=== PATIENT | male | born 1950 | race Two or more races ===

== ENCOUNTER 2018-07-25 10:15 | Inpatient (IN) | payer SELFPAY ==
[2018-07-25] VITALS (22 sets, daily range): BP systolic 95–151; BP diastolic 36–78
[~2018-07-25] VITALS: Ht 172.7 cm; Wt 94.9 kg
[2018-07-25] MEDS ORDERED: POTASSIUM CHLO10 MEQ ORAL (10:25)
[2018-07-25] MEDS ORDERED: FUROSEMIDE40 MG ORAL (10:25)
[2018-07-25] MEDS ORDERED: SPIRONOLACTONE100 MG ORAL (10:25)
[2018-07-25] MEDS ORDERED: Pantoprazole Inj IVP ONE (10:30)
[2018-07-25] MEDS ORDERED: Pantoprazole 80 MG in NS 250 ML IV ONE (10:30)
[2018-07-25] MEDS ORDERED: Octreotide Acetate 500 MCG in Sodium Chloride 499 ML IV SCH (10:30)
[2018-07-25] MEDS ORDERED: SandoSTATIN 50mcg Inj IVP ONE (10:30)
--- NOTE | 2018-07-25 10:31 | NUR ---
ED Nurse Note: Pt came in from home with family due to vomiting blood tinge emesis x 5 started this morning. Pt appears to be pale, weak. Pt responds verbally spontaneously, cooperate with staffs. Son stated pt has been drinking alcohol everyday recently. Pt does not complain of any pain at this time. Vital signs stable at this time. 3 Large bore IVs started on peripheral area. Will cont to monitor.
[2018-07-25 10:43] LABS: APPEARANCE,URINE CLEAR; BILIRUBIN, URINE NEGATIVE (NEGATIVE); GLUCOSE, URINE (UA) NEGATIVE (NEGATIVE); KETONES,URINE NEGATIVE (NEGATIVE); LEUKOCYTE ESTERASE ,URINE 1+ (NEGATIVE); NITRITE,URINE NEGATIVE (NEGATIVE); PH,URINE 5 (4.5-8.0); PROTEIN,URINE 1+ (NEGATIVE); UROBILINOGEN,URINE NORMAL MG/DL (0.0-1.0)
[2018-07-25 10:45] LABS: COLOR,URINE YELLOW
[2018-07-25 10:48] LABS: INR 1.7 (0.9-1.1)
[2018-07-25 10:51] LABS: ANION GAP 20 mmol/L (5-15); BLOOD UREA NITROGEN 18 mg/dL (7-18); CALCIUM 7.9 MG/DL (8.5-10.1); CARBON DIOXIDE 13 MMOL/L (21-32); CHLORIDE 102 MMOL/L (98-107); CREATININE 0.9 MG/DL (0.55-1.30); POTASSIUM 3.6 MMOL/L (3.5-5.1); SODIUM 135 MMOL/L (136-145)
--- NOTE | 2018-07-25 10:51 | Emergency Room Report ---
History of Present Illness General Chief Complaint: Gastrointestinal Bleed Source: Family Member Present Illness HPI Patient is a 68-year-old male brought in by EMS after increased GI bleeding and altered mental status. Patient was noted to have history of cirrhosis and was noted to be drinking alcohol regularly. He was noted to have increased hematemesis with large amount of bloody emesis. Patient had been taking diuretics as well as potassium due to cirrhosis. He had noticed increased abdominal distention. History is obtained from patient's family members. Allergies: Coded Allergies: No Known Allergies (Unverified , 07/25/18) Patient History Past Medical History: see triage record Reviewed Nursing Documentation: PMH: Agreed; PSxH: Agreed Nursing Documentation-PMH Past Medical History: No History, Except For Review of Systems All Other Systems: negative except mentioned in HPI Physical Exam Vital Signs Date Time Temp Pulse Resp B/P (MAP) Pulse Ox O2 Delivery O2 Flow Rate FiO2 07/25/18 10:21 97.5 89 20 96 Room Air 07/25/18 10:42 114/36 General Appearance: lethargic, Chronically Ill Eyes: bilateral eye conjunctivae pale ENT: other - rhinophyma Neck: limited range of motion Respiratory: lungs clear, no respiratory distress Cardiovascular #1: normal inspection Gastrointestinal: soft, distended - ascites Musculoskeletal: normal inspection Neurologic: alert, motor weakness Skin: pallor Procedures Critical Care Time Critical Care Time Patient had a critical medical condition which untreated could potentially result in life or limb threatening injury. Total critical care time excluding procedures approximately 45 minutes. Medical Decision Making Diagnostic Impression: Primary Impression: Gastrointestinal hemorrhage Additional Impressions: Severe anemia Cirrhosis ER Course Presented for abdominal pain and hematemesis. Differential diagnosis include was not limited to esophageal varices, ulcer, gastritis among others. Because of complexity of patient's case laboratory testing and imaging studies were ordered. Patient was noted to have market pallor and was initially normotensive. Patient was started on IV fluids. Patient was noted to have markedly low hemoglobin which initially showed approximately 2 repeat was 1.8. Patient was noted to be coagulopathic. Patient was started on IV uncrossed match blood. Patient was transfused multiple units of blood after informed consent was obtained. Patient was noted to be normotensive despite a severely low hemoglobin.He was started on Protonix drip as well as Sandostatin drip. Dr. Dontae Macias was contacted for inpatient management. Dr. Barclay was contacted for GI consult due to hematemesis. Labs Test 07/25/18 10:25 07/25/18 11:40 Prothrombin Time 17.4 SEC (9.30-11.50) Prothromb Time International Ratio 1.7 (0.9-1.1) Activated Partial Thromboplast Time 26 SEC (23-33) Urine Color Yellow Urine Appearance Clear Urine pH 5 (4.5-8.0) Urine Specific [place] 1.020 (1.005-1.035) Urine Protein 1+ (NEGATIVE) Urine Glucose (UA) Negative (NEGATIVE) Urine Ketones Negative (NEGATIVE) Urine Blood Negative (NEGATIVE) Urine Nitrite Negative (NEGATIVE) Urine Bilirubin Negative (NEGATIVE) Urine Urobilinogen Normal MG/DL (0.0-1.0) Urine Leukocyte Esterase 1+ (NEGATIVE) Urine RBC 0 /HPF (0 - 0) Urine WBC 0-2 /HPF (0 - 0) Urine Squamous Epithelial Cells Moderate /LPF (NONE/OCC) Urine Bacteria Moderate /HPF (NONE) Sodium Level 135 MMOL/L (136-145) Potassium Level 3.6 MMOL/L (3.5-5.1) Chloride Level 102 MMOL/L (98-107) Carbon Dioxide Level 13 MMOL/L (21-32) Anion Gap 20 mmol/L (5-15) Blood Urea Nitrogen 18 mg/dL (7-18) Creatinine 0.9 MG/DL (0.55-1.30) Estimat Glomerular Filtration Rate > 60 mL/min (>60) Glucose Level 139 MG/DL (74-106) Calcium Level 7.9 MG/DL (8.5-10.1) Total Bilirubin 0.9 MG/DL (0.2-1.0) Aspartate Amino Transf (AST/SGOT) 89 U/L (15-37) Alanine Aminotransferase (ALT/SGPT) 65 U/L (12-78) Alkaline Phosphatase 113 U/L (46-116) Troponin I 0.042 ng/mL (0.000-0.056) Total Protein 6.3 G/DL (6.4-8.2) Albumin 2.4 G/DL (3.4-5.0) Globulin 3.9 g/dL Albumin/Globulin Ratio 0.6 (1.0-2.7) Lipase 203 U/L (73-393) White Blood Count 7.5 K/UL (4.8-10.8) Red Blood Count 1.19 M/UL (4.70-6.10) Hemoglobin 1.8 G/DL (14.2-18.0) Hematocrit 7.4 % (42.0-52.0) Mean Corpuscular Volume 62 FL (80-99) Mean Corpuscular Hemoglobin 15.3 PG (27.0-31.0) Mean Corpuscular Hemoglobin Concent 24.8 G/DL (32.0-36.0) Red Cell Distribution Width 19.8 % (11.6-14.8) Platelet Count 120 K/UL (150-450) Mean Platelet Volume 7.6 FL (6.5-10.1) Neutrophils (%) (Auto) % (45.0-75.0) Lymphocytes (%) (Auto) % (20.0-45.0) Monocytes (%) (Auto) % (1.0-10.0) Eosinophils (%) (Auto) % (0.0-3.0) Basophils (%) (Auto) % (0.0-2.0) Last Vital Signs Date Time Temp Pulse Resp B/P (MAP) Pulse Ox O2 Delivery O2 Flow Rate FiO2 07/25/18 10:42 87 23 114/36 99 Room Air 07/25/18 10:21 97.5 Status: unchanged Disposition: ADMITTED INPATIENT Condition: Critical Bob Bella MD July 25, 2018 10:51
[2018-07-25 10:55] LABS: ALANINE AMINOTRANSFERASE 65 U/L (12-78); ALBUMIN 2.4 G/DL (3.4-5.0); ALBUMIN/GLOBULIN RATIO 0.6 (1.0-2.7); ALKALINE PHOSPHATASE 113 U/L (46-116); ASPARTATE AMINO TRANSFERASE 89 U/L (15-37); BILIRUBIN,TOTAL 0.9 MG/DL (0.2-1.0)
--- NOTE | 2018-07-25 11:01 | NUR ---
ED Nurse Note: Second Lavender tube sent to lab.
--- NOTE | 2018-07-25 11:02 | NUR ---
ED Nurse Note: Pt had a vomiting episode at this time, blood tinged emesis noted.
--- NOTE | 2018-07-25 11:24 | NUR ---
ED Nurse Note: Blood transfusion consent signed by pt and physician, witnessed by RN. Awaiting for blood bank to call back about blood.
--- NOTE | 2018-07-25 11:50 | NUR ---
ED Nurse Note: Blood transfusion started at this time on L forearm IV 18G, witnessed by Antonia Sebastian RN and Zac Villegas RN. Physician signed Transfusion form. Vital signs at this time: Oral temp 97.7 BP 95/42 HR 79 RR 18. Blood is being ran bolus per ERMD order.
--- NOTE | 2018-07-25 12:05 | NUR ---
ED Nurse Note: 15 mins after blood transfusion started, pr does not complain of adverse reactions. Vital signs at this time: Oral temp 97.2F HR 80 BP 99/45 RR 17 SAT 100% RA. Will cont to monitor.
[2018-07-25 12:11] LABS: HEMATOCRIT 7.4 % (42.0-52.0); MEAN CORPUSCULAR VOLUME 62 FL (80-99); PLATELET COUNT 120 K/UL (150-450); RED BLOOD COUNT 1.19 M/UL (4.70-6.10); RED CELL DISTRIBUTION WIDTH 19.8 % (11.6-14.8)
[2018-07-25 12:16] LABS: HEMOGLOBIN 1.8 G/DL (14.2-18.0); WHITE BLOOD COUNT 7.5 K/UL (4.8-10.8)
--- NOTE | 2018-07-25 12:16 | NUR ---
ED Nurse Note: Pt vomited x1 with blood tinged emesis rosina, ERMD aware.
--- NOTE | 2018-07-25 12:30 | NUR ---
ED Nurse Note: First bag of RBC completed at this time. Vital signs at this time: Oral temp 97.2F HR 83 BP 112/51 RR 18 SAT 100% RA. No adverse effect noted. Next bag of RBC endorsed to charge nurse Gretta.
[2018-07-25] MEDS ORDERED: Miralax 17gm pkt ORAL PRN (12:45)
[2018-07-25] MEDS ORDERED: Nitroglycerin Subl 0.4mg tab SL PRN (12:45)
[2018-07-25] MEDS ORDERED: Mylanta II UD 30ml ORAL PRN (12:45)
--- NOTE | 2018-07-25 13:17 | NUR ---
ED Nurse Note: Second bag of RBC was given to pt by Gretta charge nurse. 15 mins after infusion start, Oral temp 97.2F HR 88 BP 114/56. No adverse reactions noted.
--- NOTE | 2018-07-25 13:25 | NUR ---
ED Nurse Note: Second bag of RBC completed at this time. No adverse reaction noted. Oral temp 97.3F HR 91 BP 124/52.
--- NOTE | 2018-07-25 13:45 | NUR ---
ED Nurse Note: Third bag of RBC crossed match blood (A+) started at this time. Vital signs: Oral temp 97.0F HR 92 BP 123/62. Addendum: 07/26/18 at 0737 by [facility] ED Nurse Note: Third bag of RBC (2nd crossed match blood (A+) bag) started at this time. Vital signs: Oral temp 97.0F HR 92 BP 123/62.
--- NOTE | 2018-07-25 14:00 | NUR ---
ED Nurse Note: Third bag of RBC completed at this time. Vital signs Oral temp 97.0F HR 79 BP 129/59. No adverse reactions noted.
[2018-07-25] MEDS: D5NS 1,000 ML IV SCH (14:04)
--- NOTE | 2018-07-25 14:30 | NUR ---
ED Nurse Note: Forth bag of RBC started at this time. Vital signs Oral temp 97.4F HR 80 BP 131/58. Pt is awake and alert at this time, answers all questions appropriately.
[2018-07-25] MEDS ORDERED: Phytonadione 10 MG in D5W 55 ML IVPB SCH (15:00)
--- NOTE | 2018-07-25 15:30 | NUR ---
ED Nurse Note: Forth bag of RBC completed at this time. No adverse reactions noted. Vital signs at this time: Oral temp 97.3F HR 85 BP 124/65.
--- NOTE | 2018-07-25 16:15 | NUR ---
ED Nurse Note: First bag of Fresh frozen plasma started at this time. Vital signs Oral temp 97.8F HR 79 BP 136/66.
--- NOTE | 2018-07-25 16:45 | NUR ---
ED Nurse Note: First bag of FFP completed at this time. Vital signs Oral temp 97.5F HR 72 BP 129/58. No signs of acutr distress. Pt had a bowel movement, soft stools noted. No blood in stool.
--- NOTE | 2018-07-25 16:47 | NUR ---
ED Nurse Note: Attempted to give report to ICU but room is not ready, RN is not ready to take report. Will try again.
--- NOTE | 2018-07-25 17:00 | NUR ---
ED Nurse Note: Informed Blood bank about 2nd FFP bag. Lab will call when bag is ready.
--- NOTE | 2018-07-25 17:40 | NUR ---
ED Nurse Note: Reprot given to Marcial RN at ext [phone]. Pt to be transfered to room [facility] with portable oxygen, emergency box, and belongings.
--- NOTE | 2018-07-25 17:40 | NUR ---
ED Nurse Note: Endorsed the second bag of fresh frozen plasma to DERECK Ceja in ICU.
--- NOTE | 2018-07-25 18:00 | NUR ---
NURSE NOTES: Patient arrived to room 246-D. he is awake and talkative, he denies any pain, no symptoms of vomiting noted,
--- NOTE | 2018-07-25 19:32 | NUR ---
HAND-OFF: Report given to DERECK osuna.
--- NOTE | 2018-07-25 19:33 | NUR ---
NURSE NOTES: Endorsement received from DERECK Ceja. Patient awake, alert. Able to communicate needs, follows commands. [place] speaking. On room air. No shortness of breath. With right antecubital IV g 18, right forearm g 20, left forearm g18 and left hand g 20. Ongoing IV fluid D5NS 100 ml/hr, Sandostatin drip 50ml./hr and Protonix drip at 25 ml/hr. Skin is intact. Noted with trace edema at bilateral feet a legs. Kept elevated. Bed locked and in low position. Bed alarm on. Call light within reach.
--- NOTE | 2018-07-25 20:00 | NUR ---
NURSE NOTES: Patient passed 1 large BM, soft and dark brown in color. Sample collected and sent to the lab for stool OB.
--- NOTE | 2018-07-25 20:30 | NUR ---
NURSE NOTES: Patient came in with his own medications. Home meds and other personal belongings given to son to be taken home. Inventory list signed.
--- NOTE | 2018-07-25 20:50 | NUR ---
NURSE NOTES: Confirmed with Dr Brothers regarding Protonix and Sandostatin drip as the current bags were from ER. As per him to continue Protonix and Sandostatin drip and CBC, PT INR after the 2nd unit of FFP was transfused.
--- NOTE | 2018-07-25 20:56 | NUR ---
NURSE NOTES: Charge nurse confirmed with RN for the 2nd unit of FFP. Patient's identification verified with ID band. 2nd unit of FFP started.
--- NOTE | 2018-07-25 21:15 | NUR ---
NURSE NOTES: No transfusion reaction noted 15 minutes after starting the transfusion. increased to 200ml/hr to transfuse in 1 &1/2 hours
--- NOTE | 2018-07-25 22:00 | NUR ---
NURSE NOTES: Patient reported he has the urge to pass stool again. Assisted with bedpan. No stool noted, but patient passed urine. As per patient's son, patient has periods of incontinence. When patient feels that he needs to pass urine but sometimes unable to hold it. Condom catheter applied. Explained to the patient and his son.
[2018-07-25] MEDS: Pantoprazole 80 MG in NS 250 ML IV SCH (22:22)
[2018-07-25] MEDS: Octreotide Acetate 500 MCG in Sodium Chloride 499 ML IV SCH (22:29)
--- NOTE | 2018-07-25 22:30 | NUR ---
NURSE NOTES: 2nd unit of FFP transfused. No transfusion reaction noted. Will continue to monitor.
[2018-07-26] VITALS (26 sets, daily range): BP systolic 91–182; BP diastolic 43–83
--- NOTE | 2018-07-26 | NUR ---
NURSE NOTES: Patient asleep at this time. No shortness of breath. No fever, no complains of pain. Bed locked and in low position. Bed alarm on. emergency medical technician basic at bedside drawing blood.
[2018-07-26 00:14] LABS: HEMATOCRIT 19.1 % (42.0-52.0); MEAN CORPUSCULAR VOLUME 76 FL (80-99); PLATELET COUNT 85 K/UL (150-450); RED BLOOD COUNT 2.51 M/UL (4.70-6.10); RED CELL DISTRIBUTION WIDTH 22.3 % (11.6-14.8); WHITE BLOOD COUNT 6.3 K/UL (4.8-10.8)
[2018-07-26] MEDS: D5NS 1,000 ML IV SCH ×2 (00:15→09:06)
[2018-07-26 00:16] LABS: HEMOGLOBIN 6.2 G/DL (14.2-18.0)
--- NOTE | 2018-07-26 00:20 | NUR ---
NURSE NOTES: Hgb 6.2, Hct 1.4., INR 1.4. No episode of vomiting. Patient asleep, arousable per name. Called Dr. Hammonds and left a message. Awaiting for return call.
[2018-07-26 00:24] LABS: INR 1.4 (0.9-1.1)
--- NOTE | 2018-07-26 01:00 | NUR ---
NURSE NOTES: Hgb 6.2, Hct 1.4., INR 1.4. Called Dr. Hammonds for the second time on his emergency exchange and left a message. Awaiting for return call.
--- NOTE | 2018-07-26 01:38 | NUR ---
NURSE NOTES: Still no return call from Dr. Narayanan. RN supervisory investigative specialist informed. As per her to call Dr. Barclay. Called Dr. Barclay on his emergency number. Left a message, awaiting for return call.
[2018-07-26] MEDS: Morphine Sulfate 2mg/ml Inj(IV/IM USE ONLY) IVP PRN (02:38)
--- NOTE | 2018-07-26 02:40 | NUR ---
NURSE NOTES: Patient reported 7/10 abdominal pain. PRN morphine given. Rechecked temp, 100.3F. Patient has 5 thick blankets, blankets removed. Will reassess.
--- NOTE | 2018-07-26 03:15 | NUR ---
NURSE NOTES: Temperature rechecked: 99.9F.
--- NOTE | 2018-07-26 04:15 | NUR ---
NURSE NOTES: Temperature 98.3F Orally. Patient nauseous, no vomiting noted. Patient coughed out blood tinged phlegm. PRN Zofran given.
--- NOTE | 2018-07-26 04:30 | NUR ---
NURSE NOTES: Still awaiting for return call from both Drs. Brothers and Ning. technicians and trades workers already fannie blood samples for morning labs. RN fabrication and assembly supervisor made aware.
[2018-07-26 05:05] LABS: HEMATOCRIT 17.4 % (42.0-52.0); MEAN CORPUSCULAR VOLUME 77 FL (80-99); PLATELET COUNT 88 K/UL (150-450); RED BLOOD COUNT 2.28 M/UL (4.70-6.10); RED CELL DISTRIBUTION WIDTH 22.8 % (11.6-14.8); WHITE BLOOD COUNT 7.1 K/UL (4.8-10.8)
[2018-07-26 05:15] LABS: HEMOGLOBIN 5.6 G/DL (14.2-18.0); INR 1.5 (0.9-1.1)
--- NOTE | 2018-07-26 05:19 | NUR ---
NURSE NOTES: Received call from the lab. Hgb 5.6. Patient had no episode of hematemesis, no hematochezia, no melena. Had a blood tinged sputum x1 during the night. Patient asleep, arousable by name. No complains of pain at this time. Maintaining SBP>90mmHg, MAP 65 and above during the shift. Called Dr Hammonds and updated of latest Hgb. Awaiting for return call.
[2018-07-26 05:37] LABS: ALANINE AMINOTRANSFERASE 133 U/L (12-78); ALBUMIN 2.3 G/DL (3.4-5.0); ALBUMIN/GLOBULIN RATIO 0.7 (1.0-2.7); ALKALINE PHOSPHATASE 90 U/L (46-116); AMYLASE 36 U/L (25-115); ANION GAP 9 mmol/L (5-15); ASPARTATE AMINO TRANSFERASE 173 U/L (15-37); BILIRUBIN,DIRECT 0.6 MG/DL (0.0-0.3); BLOOD UREA NITROGEN 20 mg/dL (7-18); CALCIUM 7.8 MG/DL (8.5-10.1); CARBON DIOXIDE 22 MMOL/L (21-32); CHLORIDE 108 MMOL/L (98-107); CREATININE 0.7 MG/DL (0.55-1.30); POTASSIUM 3.3 MMOL/L (3.5-5.1); SODIUM 139 MMOL/L (136-145)
--- NOTE | 2018-07-26 06:30 | NUR ---
NURSE NOTES: Called Dr. Brothers again for the H&H result. awaiting for return call.
--- NOTE | 2018-07-26 06:45 | NUR ---
NURSE NOTES: Called Dr. Brothers at his home phone number. No answer and no option to leave a message. Called Dr. Raya as the next chain of command. Left a message at his emergency line. Awaiting for return call.
--- NOTE | 2018-07-26 07:15 | NUR ---
NURSE NOTES: Dr. Raya returned the call. Updated him of the patient's current status, patient on Protonix and Sandostatin drip. No pressors. Alert and oriented x4. No vomiting of blood this shift. Informed him that Jackson Hammonds and Ning were called multiple times on their emergency lines but didn't receive and return call. As per him to call Dr. Macias.
--- NOTE | 2018-07-26 07:18 | NUR ---
HAND-OFF: Report given to DERECK Ceja.
--- NOTE | 2018-07-26 07:21 | NUR ---
NURSE NOTES: Received telephone order from Dr Brothers to transfuse 2 units PRBC. Noted and carried out
--- NOTE | 2018-07-26 08:15 | NUR ---
NURSE NOTES: Dr. Barclay called to begin preparations for a possible EGD today. patient is awake and able to sign for consent.
--- NOTE | 2018-07-26 08:45 | NUR ---
NURSE NOTES: Buster at the bedside and explained patient and son risk and benefits of procedure, patient agreed and signed consent.
--- NOTE | 2018-07-26 08:59 | GI Initial Consult Note ---
History of Present Illness General Date patient seen: July 26, 2018 Time patient seen: 08:53 Reason for Hospitalization: Gastrointestinal Bleed Referring physician: JAYA SANTA Reason for Consultation: GI bleed Present Illness HPI Patient is a 68-year-old male brought in by EMS after increased GI bleeding and altered mental status. Patient was noted to have history of cirrhosis and was noted to be drinking alcohol regularly. He was noted to have increased hematemesis with large amount of bloody emesis. Patient had been taking diuretics as well as potassium due to cirrhosis. He had noticed increased abdominal distention. History is obtained from patient's family members. GI consult. Patient seen, awake alert no apparent distress with no active signs or symptoms of nausea vomiting. Family at bedside, reported that the patient's felt dizzy last night followed by multiple episodes of. Patient presented to the emergency room his hemoglobin at 1.8, received 5 units of blood which is now at 5.8. Family reported the patient will extensive history of alcohol use since the age of 14. Abdomen was assessed, distended and firm with bilateral lower extremity edema. Labs reviewed noted severe anemia, transaminitis, hypoalbuminemia and hypercoagulopathy. Unknown history of endoscopic colonoscopy. Home Meds Reported Medications Furosemide* (LASIX*) 40 Mg Tablet, 40 MG ORAL DAILY, TAB 07/25/18 Spironolactone* (SPIRONOLACTONE*) 100 Mg Tablet, 50 MG ORAL DAILY, TAB 07/25/18 Potassium Chloride* (K-DUR*) 10 Meq Capsule.er, 10 MEQ ORAL DAILY, #7 TAB 0 Refills 07/25/18 Med list reviewed/reconciled: Yes Allergies: Coded Allergies: No Known Allergies (Unverified , 07/25/18) Patient History Limited by: medical condition History Provided By: Patient, Family Member, Medical Record H Narrative Alcohol abuse Social History: Reports: alcohol use Review of Systems All Other Systems: negative except mentioned in HPI Physical Exam Vital Signs Date Time Temp Pulse Resp B/P (MAP) Pulse Ox O2 Delivery O2 Flow Rate FiO2 07/25/18 10:21 97.5 89 20 96 Room Air 07/25/18 10:42 114/36 Sp02 EP Interpretation: reviewed, normal Labs Laboratory Tests Test 07/25/18 10:25 07/25/18 11:40 07/25/18 20:00 07/26/18 00:00 Prothrombin Time 17.4 SEC (9.30-11.50) H 15.0 SEC (9.30-11.50) H Prothromb Time International Ratio 1.7 (0.9-1.1) H 1.4 (0.9-1.1) H Activated Partial Thromboplast Time 26 SEC (23-33) Urine Color Yellow Urine Appearance Clear Urine pH 5 (4.5-8.0) Urine Specific [place] 1.020 (1.005-1.035) Urine Protein 1+ (NEGATIVE) H Urine Glucose (UA) Negative (NEGATIVE) Urine Ketones Negative (NEGATIVE) Urine Blood Negative (NEGATIVE) Urine Nitrite Negative (NEGATIVE) Urine Bilirubin Negative (NEGATIVE) Urine Urobilinogen Normal MG/DL (0.0-1.0) Urine Leukocyte Esterase 1+ (NEGATIVE) H Urine RBC 0 /HPF (0 - 0) Urine WBC 0-2 /HPF (0 - 0) Urine Squamous Epithelial Cells Moderate /LPF (NONE/OCC) H Urine Bacteria Moderate /HPF (NONE) H Sodium Level 135 MMOL/L (136-145) L Potassium Level 3.6 MMOL/L (3.5-5.1) Chloride Level 102 MMOL/L (98-107) Carbon Dioxide Level 13 MMOL/L (21-32) L Anion Gap 20 mmol/L (5-15) H Blood Urea Nitrogen 18 mg/dL (7-18) Creatinine 0.9 MG/DL (0.55-1.30) Estimat Glomerular Filtration Rate > 60 mL/min (>60) Glucose Level 139 MG/DL (74-106) H Calcium Level 7.9 MG/DL (8.5-10.1) L Total Bilirubin 0.9 MG/DL (0.2-1.0) Aspartate Amino Transf (AST/SGOT) 89 U/L (15-37) H Alanine Aminotransferase (ALT/SGPT) 65 U/L (12-78) Alkaline Phosphatase 113 U/L (46-116) Troponin I 0.042 ng/mL (0.000-0.056) Total Protein 6.3 G/DL (6.4-8.2) L Albumin 2.4 G/DL (3.4-5.0) L Globulin 3.9 g/dL Albumin/Globulin Ratio 0.6 (1.0-2.7) L Lipase 203 U/L (73-393) White Blood Count 7.5 K/UL (4.8-10.8) 6.3 K/UL (4.8-10.8) Red Blood Count 1.19 M/UL (4.70-6.10) L 2.51 M/UL (4.70-6.10) L Hemoglobin 1.8 G/DL (14.2-18.0) *L 6.2 G/DL (14.2-18.0) Hematocrit 7.4 % (42.0-52.0) L 19.1 % (42.0-52.0) #L Mean Corpuscular Volume 62 FL (80-99) L 76 FL (80-99) #L Mean Corpuscular Hemoglobin 15.3 PG (27.0-31.0) L 24.9 PG (27.0-31.0) L Mean Corpuscular Hemoglobin Concent 24.8 G/DL (32.0-36.0) L 32.6 G/DL (32.0-36.0) Red Cell Distribution Width 19.8 % (11.6-14.8) H 22.3 % (11.6-14.8) H Platelet Count 120 K/UL (150-450) L 85 K/UL (150-450) L Mean Platelet Volume 7.6 FL (6.5-10.1) 6.3 FL (6.5-10.1) L Neutrophils (%) (Auto) % (45.0-75.0) % (45.0-75.0) Lymphocytes (%) (Auto) % (20.0-45.0) % (20.0-45.0) Monocytes (%) (Auto) % (1.0-10.0) % (1.0-10.0) Eosinophils (%) (Auto) % (0.0-3.0) % (0.0-3.0) Basophils (%) (Auto) % (0.0-2.0) % (0.0-2.0) Differential Total Cells Counted 100 100 Neutrophils % (Manual) 90 % (45-75) H 94 % (45-75) H Lymphocytes % (Manual) 4 % (20-45) L 2 % (20-45) L Monocytes % (Manual) 6 % (1-10) 2 % (1-10) Eosinophils % (Manual) 0 % (0-3) 0 % (0-3) Basophils % (Manual) 0 % (0-2) 1 % (0-2) Band Neutrophils 0 % (0-8) 1 % (0-8) Platelet Estimate Decreased L Decreased L Platelet Morphology Normal Normal Hypochromasia 4+ 2+ Microcytosis 4+ Stool Occult Blood Pending Anisocytosis 1+ Target Cells 1+ Test 07/26/18 04:25 White Blood Count 7.1 K/UL (4.8-10.8) Red Blood Count 2.28 M/UL (4.70-6.10) L Hemoglobin 5.6 G/DL (14.2-18.0) *L Hematocrit 17.4 % (42.0-52.0) L Mean Corpuscular Volume 77 FL (80-99) L Mean Corpuscular Hemoglobin 24.6 PG (27.0-31.0) L Mean Corpuscular Hemoglobin Concent 32.2 G/DL (32.0-36.0) Red Cell Distribution Width 22.8 % (11.6-14.8) H Platelet Count 88 K/UL (150-450) L Mean Platelet Volume 7.1 FL (6.5-10.1) Neutrophils (%) (Auto) % (45.0-75.0) Lymphocytes (%) (Auto) % (20.0-45.0) Monocytes (%) (Auto) % (1.0-10.0) Eosinophils (%) (Auto) % (0.0-3.0) Basophils (%) (Auto) % (0.0-2.0) Differential Total Cells Counted 100 Neutrophils % (Manual) 90 % (45-75) H Lymphocytes % (Manual) 6 % (20-45) L Monocytes % (Manual) 4 % (1-10) Eosinophils % (Manual) 0 % (0-3) Basophils % (Manual) 0 % (0-2) Band Neutrophils 0 % (0-8) Platelet Estimate Decreased L Platelet Morphology Normal Polychromasia 1+ Hypochromasia 3+ Anisocytosis 3+ Microcytosis 2+ Prothrombin Time 15.2 SEC (9.30-11.50) H Prothromb Time International Ratio 1.5 (0.9-1.1) H Activated Partial Thromboplast Time 31 SEC (23-33) Sodium Level 139 MMOL/L (136-145) Potassium Level 3.3 MMOL/L (3.5-5.1) L Chloride Level 108 MMOL/L (98-107) H Carbon Dioxide Level 22 MMOL/L (21-32) Anion Gap 9 mmol/L (5-15) Blood Urea Nitrogen 20 mg/dL (7-18) H Creatinine 0.7 MG/DL (0.55-1.30) Estimat Glomerular Filtration Rate > 60 mL/min (>60) Glucose Level 187 MG/DL (74-106) H Calcium Level 7.8 MG/DL (8.5-10.1) L Total Bilirubin 3.0 MG/DL (0.2-1.0) H Direct Bilirubin 0.6 MG/DL (0.0-0.3) H Aspartate Amino Transf (AST/SGOT) 173 U/L (15-37) H Alanine Aminotransferase (ALT/SGPT) 133 U/L (12-78) H Alkaline Phosphatase 90 U/L (46-116) Total Protein 5.8 G/DL (6.4-8.2) L Albumin 2.3 G/DL (3.4-5.0) L Globulin 3.5 g/dL Albumin/Globulin Ratio 0.7 (1.0-2.7) L Amylase Level 36 U/L (25-115) Lipase 131 U/L (73-393) General Appearance: well appearing, no apparent distress, alert Head: normocephalic EENT: PERRL/EOMI, normal ENT inspection Neck: supple Respiratory: normal breath sounds, no respiratory distress Cardiovascular: normal rate Gastrointestinal: normal inspection, non tender, soft, normal bowel sounds, non -distended, distended, ascites Rectal: deferred Genitourinary: deferred Musculoskeletal: normal inspection, back normal Neurologic: normal inspection, alert, oriented x3, responsive Psychiatric: normal inspection, judgement/insight normal, memory normal Skin: normal inspection, normal color, no rash, warm/dry, palpation normal, well hydrated Lymphatic: normal inspection, no adenopathy Current Medications Current Medications Medications (Trade) Dose Ordered Sig/Florentin Route PRN Reason Start Time Stop Time Status Last Admin Dose Admin Acetaminophen (Tylenol) 650 mg Q4H PRN ORAL fever 07/25/18 12:45 08/24/18 12:44 Al Hydroxide/Mg Hydroxide (Mylanta II) 30 ml Q6H PRN ORAL dyspepsia 07/25/18 12:45 08/24/18 12:44 Dextrose (Dextrose 50%) 25 ml Q30M PRN IV Hypoglycemia 07/25/18 12:45 08/24/18 12:44 Dextrose (Dextrose 50%) 50 ml Q30M PRN IV Hypoglycemia 07/25/18 12:45 08/24/18 12:44 Dextrose/Sodium Chloride 1,000 ml @ 100 mls/hr Q10H IV 07/25/18 14:00 08/24/18 13:59 07/26/18 00:15 Diphenhydramine HCl (Benadryl) 25 mg Q6H PRN ORAL Itching/Pruritis 07/25/18 12:45 08/24/18 12:44 Morphine Sulfate (Morphine Sulfate) 2 mg Q4H PRN IVP severe Pain (Pain Scale 7-10) 07/25/18 12:45 08/01/18 12:44 07/26/18 02:38 Nitroglycerin (Ntg) 0.4 mg Q5M X 3 DOSES PRN SL Prn Chest Pain 07/25/18 12:45 08/24/18 12:44 Octreotide Acetate 500 mcg/ Sodium Chloride 500 ml @ 50 mls/hr Q10H IV 07/25/18 21:30 08/24/18 21:29 07/25/18 22:29 Ondansetron HCl (Zofran) 4 mg Q6H PRN IVP Nausea & Vomiting 07/25/18 12:45 08/24/18 12:44 07/26/18 04:15 Pantoprazole 80 mg/Sodium Chloride 250 ml @ 25 mls/hr Q10H IV 07/25/18 21:30 08/24/18 21:29 07/25/18 22:22 Polyethylene Glycol (Miralax) 17 gm HSPRN PRN ORAL Constipation 07/25/18 12:45 08/24/18 12:44 Temazepam (Restoril) 15 mg HSPRN PRN ORAL Insomnia 07/25/18 12:45 08/01/18 12:44 GI: Plan Problems: (1) Severe anemia (2) Cirrhosis (3) Gastrointestinal hemorrhage Plan Endoscopy scheduled for today. Continue octreotide drip continue Protonix drip Monitor H&H, as needed transfusions Lasix Will follow with additional recommendations post procedure Follow labs, hepatitis panel Discussed with Dr. Barclay. Thank you for this patient referral, we will follow. The patient was seen and examined at bedside and all new and available data was reviewed in the patients chart. I agree with the above findings, impression and plan. (Patient seen earlier today. Signature stamp does not reflect patient encounter time.). - MD Destini MckennaKingman Regional Medical CenterManBuster CHAN July 26, 2018 08:59
[2018-07-26] MEDS: Octreotide Acetate 500 MCG in Sodium Chloride 499 ML IV SCH ×2 (09:05→17:12)
[2018-07-26] MEDS: Pantoprazole 80 MG in NS 250 ML IV SCH ×2 (09:05→17:11)
--- NOTE | 2018-07-26 09:20 | Pulmonolgy Critical Care Note ---
Critical Care - Asmt/Plan Problems: (1) Hemorrhagic shock (2) Gastrointestinal hemorrhage (3) Cirrhosis (4) Severe anemia (5) Esophageal varices Respiratory: monitor respiratory rate, adjust FIO2, CXR Cardiac: continue to monitor HR/BP Renal: F/U I&O, check electrolytes Infectious Disease: check cultures Gastrointestinal: continue feedings/current rate Endocrine: monitor blood sugar, check TSH Hematologic: monitor H/H, transfuse if hgb<8.5 Neurologic: PRN Ativan, keep patient comfortable Affect: PRN ativan Prophylaxis: Protonix Notes Reviewed: telephone supervisor, renal Discussed with: nurses, consultants, lead case managerprogram management manager - Objective Last 24 Hour Vital Signs Date Time Temp Pulse Resp B/P (MAP) Pulse Ox O2 Delivery O2 Flow Rate FiO2 07/26/18 06:00 73 13 106/50 (68) 98 07/26/18 05:00 74 14 91/43 (59) 98 07/26/18 04:00 94 07/26/18 04:00 Room Air 07/26/18 04:00 98.3 86 18 118/49 (72) 98 07/26/18 03:16 99.9 07/26/18 03:15 99.9 07/26/18 03:00 87 20 119/53 (75) 98 07/26/18 02:40 100.4 07/26/18 02:00 89 21 110/51 (70) 98 07/26/18 01:00 78 18 116/53 (74) 99 07/26/18 00:00 71 07/26/18 00:00 Room Air 07/26/18 00:00 98.3 84 17 120/48 (72) 99 07/25/18 23:00 98.3 75 16 132/56 (81) 98 07/25/18 22:00 81 19 112/78 (89) 100 07/25/18 21:00 98.2 75 15 107/58 (74) 99 07/25/18 20:00 Room Air 07/25/18 20:00 98.3 71 14 120/56 (77) 100 07/25/18 20:00 82 07/25/18 19:00 84 16 121/49 (73) 100 07/25/18 18:46 Room Air 07/25/18 18:00 98.0 76 14 142/66 (91) 100 07/25/18 18:00 82 07/25/18 17:40 97.5 72 19 129/58 100 Room Air 07/25/18 17:35 75 20 151/65 97 Room Air 07/25/18 16:45 97.5 72 19 129/58 100 Room Air 07/25/18 16:30 97.5 74 18 130/58 98 Room Air 07/25/18 16:15 97.8 79 20 136/66 100 Room Air 07/25/18 15:30 97.3 85 124/65 07/25/18 14:45 97.3 80 20 126/59 99 Room Air 07/25/18 14:30 97.4 80 19 131/58 100 Room Air 07/25/18 14:00 97.1 80 20 129/59 100 Room Air 07/25/18 13:45 97.0 92 20 123/62 98 Room Air 07/25/18 13:25 97.3 91 20 124/52 100 Room Air 07/25/18 13:17 97.2 88 18 114/56 100 Room Air 07/25/18 13:02 96.7 85 20 109/47 100 Room Air 07/25/18 12:20 86 20 123/57 100 Room Air 07/25/18 12:05 97.2 80 17 99/45 100 Room Air 07/25/18 11:50 97.7 79 18 95/42 100 Room Air 07/25/18 11:02 87 23 Room Air 07/25/18 10:42 87 23 114/36 99 Room Air 07/25/18 10:21 97.5 89 20 96 Room Air Status: awake HEENT: atraumatic Lungs: clear Heart: HR/BP stable Abdomen: non-tender Extremities: no C/C/E Critical Care - Subjective ROS Limited/Unobtainable: Yes Interval Events: 68-year-old male with hx of ETOH abuse and cirrhosis brought in by EMS with CC of GI bleeding and altered mental status. He was noted to have increased hematemesis with large amount of bloody emesis. He had noticed increased abdominal distention. His Hemoglobin was 1.8 ( lowest I have ever seen in my life) and is admitted to ICU. He has received 4 units of prbc and 2 units or FFP meanwhile. I&O: Intake and Output 07/25/18 07/26/18 19:00 07:00 Intake Total 981 ml 2175 ml Output Total 500 ml Balance 981 ml 1675 ml Intake Oral 0 ml IV Total 981 ml 1875 ml Blood Product 300 ml Output Urine Total 500 ml # Voids 2 3 # Bowel Movements 2 Labs: Laboratory Tests Test 07/25/18 10:25 07/25/18 11:40 07/25/18 20:00 07/26/18 00:00 Prothrombin Time 17.4 SEC (9.30-11.50) H 15.0 SEC (9.30-11.50) H Prothromb Time International Ratio 1.7 (0.9-1.1) H 1.4 (0.9-1.1) H Activated Partial Thromboplast Time 26 SEC (23-33) Urine Color Yellow Urine Appearance Clear Urine pH 5 (4.5-8.0) Urine Specific [place] 1.020 (1.005-1.035) Urine Protein 1+ (NEGATIVE) H Urine Glucose (UA) Negative (NEGATIVE) Urine Ketones Negative (NEGATIVE) Urine Blood Negative (NEGATIVE) Urine Nitrite Negative (NEGATIVE) Urine Bilirubin Negative (NEGATIVE) Urine Urobilinogen Normal MG/DL (0.0-1.0) Urine Leukocyte Esterase 1+ (NEGATIVE) H Urine RBC 0 /HPF (0 - 0) Urine WBC 0-2 /HPF (0 - 0) Urine Squamous Epithelial Cells Moderate /LPF (NONE/OCC) H Urine Bacteria Moderate /HPF (NONE) H Sodium Level 135 MMOL/L (136-145) L Potassium Level 3.6 MMOL/L (3.5-5.1) Chloride Level 102 MMOL/L (98-107) Carbon Dioxide Level 13 MMOL/L (21-32) L Anion Gap 20 mmol/L (5-15) H Blood Urea Nitrogen 18 mg/dL (7-18) Creatinine 0.9 MG/DL (0.55-1.30) Estimat Glomerular Filtration Rate > 60 mL/min (>60) Glucose Level 139 MG/DL (74-106) H Calcium Level 7.9 MG/DL (8.5-10.1) L Total Bilirubin 0.9 MG/DL (0.2-1.0) Aspartate Amino Transf (AST/SGOT) 89 U/L (15-37) H Alanine Aminotransferase (ALT/SGPT) 65 U/L (12-78) Alkaline Phosphatase 113 U/L (46-116) Troponin I 0.042 ng/mL (0.000-0.056) Total Protein 6.3 G/DL (6.4-8.2) L Albumin 2.4 G/DL (3.4-5.0) L Globulin 3.9 g/dL Albumin/Globulin Ratio 0.6 (1.0-2.7) L Lipase 203 U/L (73-393) White Blood Count 7.5 K/UL (4.8-10.8) 6.3 K/UL (4.8-10.8) Red Blood Count 1.19 M/UL (4.70-6.10) L 2.51 M/UL (4.70-6.10) L Hemoglobin 1.8 G/DL (14.2-18.0) *L 6.2 G/DL (14.2-18.0) Hematocrit 7.4 % (42.0-52.0) L 19.1 % (42.0-52.0) #L Mean Corpuscular Volume 62 FL (80-99) L 76 FL (80-99) #L Mean Corpuscular Hemoglobin 15.3 PG (27.0-31.0) L 24.9 PG (27.0-31.0) L Mean Corpuscular Hemoglobin Concent 24.8 G/DL (32.0-36.0) L 32.6 G/DL (32.0-36.0) Red Cell Distribution Width 19.8 % (11.6-14.8) H 22.3 % (11.6-14.8) H Platelet Count 120 K/UL (150-450) L 85 K/UL (150-450) L Mean Platelet Volume 7.6 FL (6.5-10.1) 6.3 FL (6.5-10.1) L Neutrophils (%) (Auto) % (45.0-75.0) % (45.0-75.0) Lymphocytes (%) (Auto) % (20.0-45.0) % (20.0-45.0) Monocytes (%) (Auto) % (1.0-10.0) % (1.0-10.0) Eosinophils (%) (Auto) % (0.0-3.0) % (0.0-3.0) Basophils (%) (Auto) % (0.0-2.0) % (0.0-2.0) Differential Total Cells Counted 100 100 Neutrophils % (Manual) 90 % (45-75) H 94 % (45-75) H Lymphocytes % (Manual) 4 % (20-45) L 2 % (20-45) L Monocytes % (Manual) 6 % (1-10) 2 % (1-10) Eosinophils % (Manual) 0 % (0-3) 0 % (0-3) Basophils % (Manual) 0 % (0-2) 1 % (0-2) Band Neutrophils 0 % (0-8) 1 % (0-8) Platelet Estimate Decreased L Decreased L Platelet Morphology Normal Normal Hypochromasia 4+ 2+ Microcytosis 4+ Stool Occult Blood Pending Anisocytosis 1+ Target Cells 1+ Test 07/26/18 04:25 White Blood Count 7.1 K/UL (4.8-10.8) Red Blood Count 2.28 M/UL (4.70-6.10) L Hemoglobin 5.6 G/DL (14.2-18.0) *L Hematocrit 17.4 % (42.0-52.0) L Mean Corpuscular Volume 77 FL (80-99) L Mean Corpuscular Hemoglobin 24.6 PG (27.0-31.0) L Mean Corpuscular Hemoglobin Concent 32.2 G/DL (32.0-36.0) Red Cell Distribution Width 22.8 % (11.6-14.8) H Platelet Count 88 K/UL (150-450) L Mean Platelet Volume 7.1 FL (6.5-10.1) Neutrophils (%) (Auto) % (45.0-75.0) Lymphocytes (%) (Auto) % (20.0-45.0) Monocytes (%) (Auto) % (1.0-10.0) Eosinophils (%) (Auto) % (0.0-3.0) Basophils (%) (Auto) % (0.0-2.0) Differential Total Cells Counted 100 Neutrophils % (Manual) 90 % (45-75) H Lymphocytes % (Manual) 6 % (20-45) L Monocytes % (Manual) 4 % (1-10) Eosinophils % (Manual) 0 % (0-3) Basophils % (Manual) 0 % (0-2) Band Neutrophils 0 % (0-8) Platelet Estimate Decreased L Platelet Morphology Normal Polychromasia 1+ Hypochromasia 3+ Anisocytosis 3+ Microcytosis 2+ Prothrombin Time 15.2 SEC (9.30-11.50) H Prothromb Time International Ratio 1.5 (0.9-1.1) H Activated Partial Thromboplast Time 31 SEC (23-33) Sodium Level 139 MMOL/L (136-145) Potassium Level 3.3 MMOL/L (3.5-5.1) L Chloride Level 108 MMOL/L (98-107) H Carbon Dioxide Level 22 MMOL/L (21-32) Anion Gap 9 mmol/L (5-15) Blood Urea Nitrogen 20 mg/dL (7-18) H Creatinine 0.7 MG/DL (0.55-1.30) Estimat Glomerular Filtration Rate > 60 mL/min (>60) Glucose Level 187 MG/DL (74-106) H Calcium Level 7.8 MG/DL (8.5-10.1) L Total Bilirubin 3.0 MG/DL (0.2-1.0) H Direct Bilirubin 0.6 MG/DL (0.0-0.3) H Aspartate Amino Transf (AST/SGOT) 173 U/L (15-37) H Alanine Aminotransferase (ALT/SGPT) 133 U/L (12-78) H Alkaline Phosphatase 90 U/L (46-116) Total Protein 5.8 G/DL (6.4-8.2) L Albumin 2.3 G/DL (3.4-5.0) L Globulin 3.5 g/dL Albumin/Globulin Ratio 0.7 (1.0-2.7) L Amylase Level 36 U/L (25-115) Lipase 131 U/L (73-393) Chaim Brothers MD July 26, 2018 09:20
--- NOTE | 2018-07-26 09:30 | NUR ---
NURSE NOTES: First unit of blood started no transfusion reaction noted after 15min observation, Patient denies any pain or burning at IV line and denies any irritation, Will continue plan of care.
[2018-07-26] MEDS ORDERED: Succinylcholine 20mg/ml 10ml vial ONE (10:01)
[2018-07-26] MEDS ORDERED: Zemuron 50mg/5ml Inj IV ONE (10:02)
--- NOTE | 2018-07-26 10:34 | NUR ---
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 CIRRHOSIS VS: BP 95/42, P 89, T 96.7, RR 23, SpO2 96 RBC 2.28, H&H 5.6/17.4, BUN 20, K 3.3 IS:NS x1L IV OCTREOTIDE 500ml IV PANTOPRAZOLE 80mg 250ml IV PHYTONADIONE 56ml IVPB ADMITTED TO ICU DCP: RETURN HOME
--- NOTE | 2018-07-26 11:45 | NUR ---
NURSE NOTES: Patient taken to GI lab to completed EGD by Dr. Barclay, report given at [facility].
--- NOTE | 2018-07-26 12:13 | Pre-Procedure Note/Attestation ---
Pre-Procedure Note/Attestation Complete Prior to Procedure Planned Procedure: not applicable Procedure Narrative: egd Indications for Procedure Pre-Operative Diagnosis: gib Attestation I attest that I discussed the nature of the procedure; its benefits; risks and complications; and alternatives (and the risks and benefits of such alternatives ), prior to the procedure, with the patient (or the patient's legal licensing representative). I attest that, if there was a reasonable possibility of needing a blood transfusion, the patient (or the patient's legal licensing representative) was given the [facility] standardized written summary, pursuant to the [employer]egsh Jatinder Blood Safety Act ([place] Health and Safety Code # 1645, as amended). I attest that I re-evaluated the patient just prior to the surgery and that there has been no change in the patient's H&P, except as documented below: Trino Barclay MD July 26, 2018 12:13
[2018-07-26] MEDS ORDERED: NS 500ML IVPB ONE (12:15)
--- NOTE | 2018-07-26 12:18 | History & Physical ---
History and Physical History & Physicial Dontae Macias MD July 26, 2018 12:18
--- NOTE | 2018-07-26 12:45 | NUR ---
NURSE NOTES: Dr. Macias updated on patient condition and ordered to have a US Guided paracentesis, Son nash consented to the procedures.
--- NOTE | 2018-07-26 13:39 | Anethesia Preoperative Eval ---
Anesthesia Pre-op PMH/ROS General Date of Evaluation: July 26, 2018 Time of Evaluation: 12:20 Anesthesiologist: Deny ASA Score: ASA 3 - ASA 3E per Dr. Barclay Mallampati Score Class I : Soft palate, uvula, fauces, pillars visible Class II: Soft palate, uvula, fauces visible Class III: Soft palate, base of uvula visible Class IV: Only hard plate visible Mallampati Classification: Class III Surgeon: Ning Diagnosis: GI bleed Surgical Procedure: EGD Anesthesia History: none Social History: alcohol use Family History: no anesthesia problems Allergies: Coded Allergies: No Known Allergies (Unverified , 07/25/18) Medications: see eMAR Patient NPO?: Yes NPO Date: July 25, 2018 NPO Time: 20:00 - pt NPO since arrived to the hospital per RN Past Medical History Pulmonary: Denies: asthma, COPD, ALFREDA, other Gastrointestinal/Genitourinary: Reports: other - dysphagia, hematemesis, eroded teeth, Cirrhosis, Neurologic/Psychiatric: Reports: depression/anxiety, other - lethargic, motor weakness, limited ROM HEENT: Denies: cataract (L), cataract (R), glaucoma, S[place]OVIA (L), SELDOVIA (R), other Hematology/Immune: Reports: anemia Musculoskeletal/Integumentary: Denies: OA, RA, DJD, DDD, edema, other Anesthesia Pre-op Phys. Exam Physician Exam Last Vital Signs Date Time Temp Pulse Resp B/P (MAP) Pulse Ox O2 Delivery O2 Flow Rate FiO2 07/26/18 12:00 Room Air 07/26/18 11:45 98.6 85 18 144/52 (82) 99 Constitutional: NAD Neurologic: CN 2-12 intact Cardiovascular: RRR Respiratory: CTA Gastrointestinal: S/NT/ND Airway Exam Mallampati Score: Class III MO: limited Neck: limited ROM: limited Teeth: other - eroded teeth all over mouth Dentures: no upper, no lower Anesthesia Pre-op A/P Labs Hematology Test 07/26/18 00:00 07/26/18 04:25 White Blood Count 6.3 K/UL (4.8-10.8) 7.1 K/UL (4.8-10.8) Red Blood Count 2.51 M/UL (4.70-6.10) L 2.28 M/UL (4.70-6.10) L Hemoglobin 6.2 G/DL (14.2-18.0) 5.6 G/DL (14.2-18.0) *L Hematocrit 19.1 % (42.0-52.0) #L 17.4 % (42.0-52.0) L Mean Corpuscular Volume 76 FL (80-99) #L 77 FL (80-99) L Mean Corpuscular Hemoglobin 24.9 PG (27.0-31.0) L 24.6 PG (27.0-31.0) L Mean Corpuscular Hemoglobin Concent 32.6 G/DL (32.0-36.0) 32.2 G/DL (32.0-36.0) Red Cell Distribution Width 22.3 % (11.6-14.8) H 22.8 % (11.6-14.8) H Platelet Count 85 K/UL (150-450) L 88 K/UL (150-450) L Mean Platelet Volume 6.3 FL (6.5-10.1) L 7.1 FL (6.5-10.1) Neutrophils (%) (Auto) % (45.0-75.0) % (45.0-75.0) Lymphocytes (%) (Auto) % (20.0-45.0) % (20.0-45.0) Monocytes (%) (Auto) % (1.0-10.0) % (1.0-10.0) Eosinophils (%) (Auto) % (0.0-3.0) % (0.0-3.0) Basophils (%) (Auto) % (0.0-2.0) % (0.0-2.0) Differential Total Cells Counted 100 100 Neutrophils % (Manual) 94 % (45-75) H 90 % (45-75) H Lymphocytes % (Manual) 2 % (20-45) L 6 % (20-45) L Monocytes % (Manual) 2 % (1-10) 4 % (1-10) Eosinophils % (Manual) 0 % (0-3) 0 % (0-3) Basophils % (Manual) 1 % (0-2) 0 % (0-2) Band Neutrophils 1 % (0-8) 0 % (0-8) Platelet Estimate Decreased L Decreased L Platelet Morphology Normal Normal Hypochromasia 2+ 3+ Anisocytosis 1+ 3+ Target Cells 1+ Polychromasia 1+ Microcytosis 2+ Coagulation Test 07/26/18 00:00 07/26/18 04:25 Prothrombin Time 15.0 SEC (9.30-11.50) H 15.2 SEC (9.30-11.50) H Prothromb Time International Ratio 1.4 (0.9-1.1) H 1.5 (0.9-1.1) H Activated Partial Thromboplast Time 31 SEC (23-33) Chemistry Test 07/26/18 04:25 Sodium Level 139 MMOL/L (136-145) Potassium Level 3.3 MMOL/L (3.5-5.1) L Chloride Level 108 MMOL/L (98-107) H Carbon Dioxide Level 22 MMOL/L (21-32) Anion Gap 9 mmol/L (5-15) Blood Urea Nitrogen 20 mg/dL (7-18) H Creatinine 0.7 MG/DL (0.55-1.30) Estimat Glomerular Filtration Rate > 60 mL/min (>60) Glucose Level 187 MG/DL (74-106) H Calcium Level 7.8 MG/DL (8.5-10.1) L Total Bilirubin 3.0 MG/DL (0.2-1.0) H Direct Bilirubin 0.6 MG/DL (0.0-0.3) H Aspartate Amino Transf (AST/SGOT) 173 U/L (15-37) H Alanine Aminotransferase (ALT/SGPT) 133 U/L (12-78) H Alkaline Phosphatase 90 U/L (46-116) Total Protein 5.8 G/DL (6.4-8.2) L Albumin 2.3 G/DL (3.4-5.0) L Globulin 3.5 g/dL Albumin/Globulin Ratio 0.7 (1.0-2.7) L Amylase Level 36 U/L (25-115) Lipase 131 U/L (73-393) Risk Assessment & Plan Assessment: Pt lethargic and unable to sign consent. Per Dr. Barclay the case is emergent and needs to be done due to severe anemia. Pts VSS. Plan: GETA Status Change Before Surgery: No Pre-Antibiotics Given Within 1 Hr of Incision: No - none per surgeon Fide Barclay CRNA July 26, 2018 13:39
--- NOTE | 2018-07-26 13:41 | Immediate Post-Op Evaluation ---
Immediate Post-Op Evalulation Immediate Post-Op Evalulation Procedure: EGD Date of Evaluation: July 26, 2018 Time of Evaluation: 13:39 IV Fluids: NSS 500 ml Blood Products: 0 Estimated Blood Loss: minimal Urinary Output: 100ml dark clem Blood Pressure Systolic: 137 Blood Pressure Diastolic: 69 Pulse Rate: 80 Respiratory Rate: 17 O2 Sat by Pulse Oximetry: 97 Temperature (Fahrenheit): 97.8 Pain Score (1-10): 0 Nausea: No Vomiting: Yes - spitting up bloody secreation Complications none noted Patient Status: reacts, patent, extubated, none Hydration Status: adequate Given Within 1 Hr of Incision: No Fide Barclay CRNA July 26, 2018 13:41
--- NOTE | 2018-07-26 13:53 | 48 Hour Post Anesthesia Eval ---
Post Anesthesia Evaluation Procedure: EGD Date of Evaluation: July 26, 2018 Time of Evaluation: 13:52 Blood Pressure Systolic: 137 0: 69 Pulse Rate: 88 Respiratory Rate: 17 Temperature (Fahrenheit): 97 O2 Sat by Pulse Oximetry: 97 Airway: patent Nausea: No Vomiting: No Pain Intensity: 0 Hydration Status: adequate Mental Status/LOC: patient returned to baseline Follow-up care needed: patient intructions given Fide Barclay CRNA July 26, 2018 13:53
[2018-07-26] MEDS ORDERED: fentaNYL 100 mcg/2 mL IV PRN (14:00)
--- NOTE | 2018-07-26 14:21 | NUR ---
Social Work This SW met with patient, currently in the ICU (along with son, Malcolm Wade: [phone] at bedside). Patient speaks only Latvian. Son explains patient lives with spouse, who is the primary caregiver for patient. Patient overall was independent, did not use any DME, and stayed home alone, while spouse was working six hours per day, selling tamales. Son explains patients baseline is alert/oriented x4. Patient has a history of chronic substance abuse (alcohol), expressing awareness that his prognosis is poor, due to Liver Cirrhosis. Son recognizes that patient life expectancy is limited, planning to take patient with family to rotate the care for patient. This SW recommended Hospice ([facility] financial counseling to assist with application for Medi criss). Patient is undocumented, but will qualify for Medi criss due to end stage illness. Pending progress and medical plan from the Medical team, however. This also provided outpatient resources (for low income/no insurance); [facility] and [facility] programs.
--- NOTE | 2018-07-26 14:30 | NUR ---
NURSE NOTES: First unit competed while patient is at GI lab, Procedure could not be completed due to stricture at the esophagus and camera could not be advanced, patient is drowsy and sedated, he is on simple mask at 6L/min with saturations at 97% and red secretions suctioning out of mouth.
[2018-07-26] MEDS ORDERED: Calcium Gluconate 10% 2 GM in NS 110 ML IVPB SCH (15:00)
--- NOTE | 2018-07-26 15:00 | NUR ---
NURSE NOTES: Dr. Brothers changed fluids to D5NS with KCL at 100ml/hr, and ordered to have 2G of calcium gluconate IVPB. will carry out orders.
[2018-07-26] MEDS: cefTRIAXone 1 GM in D5W 55 ML IVPB SCH (15:42)
--- NOTE | 2018-07-26 15:45 | NUR ---
NURSE NOTES: US guided paracentesis completed at the bedside, approximately 100 mls drained, color noted to be clear yellow clem, patient placed on simple mask at 6L/min, no distress noted,
[2018-07-26] MEDS ORDERED: Midazolam 2mg/2ml Inj ONE (16:29)
[2018-07-26] MEDS ORDERED: fentaNYL 100 mcg/2 mL IV ONE (16:29)
--- NOTE | 2018-07-26 17:00 | Diagnostic Imaging Report ---
Indications: Ascites Technique: Ultrasound used to localize optimal puncture site. A small amount of fluid is seen in the left lower quadrant and adjacent to the liver. Sterile prepping and draping left lower quadrant. Local anesthesia with 1% lidocaine. Under real-time ultrasound guidance, puncture peritoneal space using paracentesis needle. Stylet removed. Catheter placed to vacuum bottle suction. Total 100 mL of fluid aspirated. Patient tolerated procedure well, without immediate complication. Specimen was sent to the lab for analysis Findings: Followup sonography demonstrates complete near complete resolution of peritoneal fluid. Impression: Successful ultrasound-guided paracentesis, yielding 100 milliliters of fluid
--- NOTE | 2018-07-26 17:15 | NUR ---
NURSE NOTES: Second Unit of PRBC completed. No blood transfusion reaction noted with temperature at 98.1 taken axillary, patient remains sedated breathing on room air with saturations at 94-96%,
--- NOTE | 2018-07-26 19:00 | History and Physical Report ---
DATE OF ADMISSION: 07/25/2018 CHIEF COMPLAINT: Gastrointestinal bleed. HISTORY OF PRESENT ILLNESS: The patient is a 68-year-old gentleman with past medical history significant for alcohol abuse with liver cirrhosis, who presented to the hospital with altered mental status and increased gastrointestinal bleed. The patient noted to have a large amount of bloody emesis, been taking diuretics and potassium for cirrhosis, noted to have increased abdominal distention. Shortly after initial evaluation in the emergency, the patient was admitted to ICU with acute GI bleed most likely upper GI bleed. PAST MEDICAL HISTORY/PAST SURGICAL HISTORY: As above history of alcoholic cirrhosis as well as alcoholism. MEDICATIONS: at home significant for Lasix, furosemide, spironolactone. ALLERGIES: No known drug allergies. SOCIAL HISTORY: History of alcohol abuse. No smoking or substance. History is very limited secondary to the patient's status is altered and uncooperative. REVIEW OF SYSTEMS: Very limited. FAMILY HISTORY: Noncontributory. PHYSICAL EXAMINATION: VITAL SIGNS: On admission, temperature 97.5, pulse of 89, respirations 20, and blood pressure 114/36. GENERAL: The patient is altered, opening his eyes, very agitated. HEAD AND NECK: Pupils are equal and reactive to light. Anicteric. NECK: Supple. No JVD. LUNGS: Good air entry. No wheeze or rhonchi. Decreased air in bases. HEART: S1 and S2. Tachycardic. ABDOMEN: Soft, distended. Positive fluid shift. No rebound tenderness. EXTREMITIES: No cyanosis, clubbing, edema. NEUROLOGIC: Cranial nerves II through XII grossly intact. The patient is moving all extremities spontaneously. Gait was not assessed due to the patient high risk for fall. LABORATORY AND DIAGNOSTIC DATA: Laboratory on admission WBC of 7.5, hemoglobin of 1.8, hematocrit 7.4, platelet 120. Sodium 135, potassium 3.6, chloride 102, bicarb 13, BUN 18, creatinine 0.9, GFR greater than 60. Glucose is 139. First troponin 0.042. Lipase is 203. Amylase is 36. PT , INR 1.7, and PTT of 26. Urinalysis, +1 leukocytes, moderate bacteria. Stool occult blood positive. ASSESSMENT: 1. Severe anemia, most likely secondary to acute blood loss. 2. Acute upper GI bleed. 3. Alcoholism. 4. Liver cirrhosis. 5. Morbid obesity. PLAN: Admit the patient to ICU. We will type and cross and transfuse multiple packed RBC. Keep the patient NPO for endoscopy in the morning. Followup with Dr. Barclay, GI consultation as well as Dr. Brothers, Pulmonary Critical Care. Dontae Macias M.D. DR: Mehdi JOB#: [id number] CC:
[2018-07-26 19:12] LABS: HEMATOCRIT 25.2 % (42.0-52.0); HEMOGLOBIN 8.3 G/DL (14.2-18.0); MEAN CORPUSCULAR VOLUME 78 FL (80-99); PLATELET COUNT 95 K/UL (150-450); RED BLOOD COUNT 3.25 M/UL (4.70-6.10); RED CELL DISTRIBUTION WIDTH 19.6 % (11.6-14.8); WHITE BLOOD COUNT 10.7 K/UL (4.8-10.8)
--- NOTE | 2018-07-26 19:35 | NUR ---
HAND-OFF: Report given to DERECK Sun.
--- NOTE | 2018-07-26 19:36 | NUR ---
NURSE NOTES: Endorsement received from DERECK Ceja. Patient lethargic. No eye opening to pain, withdraws to deep pain, mumbles to pain. On room air, tachypneic with oxygen saturation of 96%. Bloody secretion from the mouth. With gag reflex. Sinus tach on the monitor. With condom catheter, draining to urine bag. With Right AC g18, right forearm g 20, left forearm g18. Left hand g20 noted to be bloody, discontinued. Ongoing Sandostatin drip at 50ml/hr, Protonix drip at 25 ml/hr, D5NS +KCL 20meqs at 100ml/hr. Head of bed elevated. Bed alarm on, locked and in low position. Call light within reach.
--- NOTE | 2018-07-26 19:52 | NUR ---
NURSE NOTES: Hgb 8.3, Hct 25.2. With bloody secretions from the mouth. Asleep and lethargic. No eye opening, withdraws to deep pain, mumbles to pain. Current vital signs 105, 151/87, 25, 99F, 96% room air. Informed Dr Brothers, responded with no new orders at this time.
--- NOTE | 2018-07-26 20:00 | NUR ---
NURSE NOTES: Hgb 8.3, Hct 25.2. With bloody secretions from the mouth. Asleep and lethargic. No eye opening, withdraws to deep pain, mumbles to pain. Current vital signs 105, 151/87, 25, 99F, 96% room air. Called Dr Macias, informed him of the patient's status and that Dr. Brothers was informed and no new orders were given. As per him, no new orders as well.
--- NOTE | 2018-07-26 22:00 | NUR ---
NURSE NOTES: Patient's and niece at bedside. Updated them of patient's current status.
[2018-07-27] VITALS (24 sets, daily range): BP systolic 129–184; BP diastolic 58–89
--- NOTE | 2018-07-27 | NUR ---
NURSE NOTES: Patint's condition remains the same. Secretions suctioned, scant amount of bloody secretions from mouth. Mouth care done. Applied mouth moisturizer.
--- NOTE | 2018-07-27 02:00 | NUR ---
NURSE NOTES: No episodes of vomiting. Afebrile.
[2018-07-27] MEDS: Octreotide Acetate 500 MCG in Sodium Chloride 499 ML IV SCH ×3 (02:57→23:31)
[2018-07-27] MEDS: Pantoprazole 80 MG in NS 250 ML IV SCH ×3 (02:57→23:31)
--- NOTE | 2018-07-27 03:00 | NUR ---
NURSE NOTES: Patient still tachypneic. Guedel airway inserted due to patient bites yankuer when suctioned. Blood tinged thick secretion suctioned from the mouth. Saturation 97% on room air.
--- NOTE | 2018-07-27 04:30 | NUR ---
NURSE NOTES: Patient labored breathing, respiratory rate of 27, saturation 96%. Started on Venti mask 45%. Still labored breathing. Informed Dr. Brothers, awaiting for return call.
--- NOTE | 2018-07-27 04:50 | NUR ---
RESPIRATORY NOTE: Pt became more lethargic/hard to arouse throughout the night. Pt also had increased work of breathing, tachypneic, noticed increased retractions. Placed on 45% venturi mask w/ no relief. Pt now placed on BiPAP 15/5, backup rate 16, 30%. MD notified per bedside RN. Pt on a Facial mask, skin intact, no redness/breakdowns noted. Foam tape applied on pt's nosebridge/cheeks/chin to prevent any mask irritations. B/S eliza. rhonchi/rales. NTS prn, sxn small to moderate amounts of hutchison-pink, frothy secretions. Family present at bedside. BiPAP plugged into red outlet. Pt starting to calm down, chest retracting less. ABG to be drawn. Will continue to monitor pt.
--- NOTE | 2018-07-27 04:58 | NUR ---
NURSE NOTES: Still labored breathing on venti mask, 28 respiratory rate. 99% saturation. Started on BiPAP 15/5, 30% c/o RT. Informed Dr. Brothers, awaiting for return call. Informed patient's family friend who's at bedside.
[2018-07-27 06:20] LABS: AMMONIA 329 umol/L (11-32)
[2018-07-27 06:29] LABS: ALANINE AMINOTRANSFERASE 110 U/L (12-78); ALBUMIN/GLOBULIN RATIO 0.7 (1.0-2.7); ALKALINE PHOSPHATASE 76 U/L (46-116); ANION GAP 18 mmol/L (5-15); ASPARTATE AMINO TRANSFERASE 93 U/L (15-37); BILIRUBIN,TOTAL 2.4 MG/DL (0.2-1.0); BLOOD UREA NITROGEN 27 mg/dL (7-18); CALCIUM 7.5 MG/DL (8.5-10.1); CARBON DIOXIDE 14 MMOL/L (21-32); CHLORIDE 116 MMOL/L (98-107); CREATININE 1.5 MG/DL (0.55-1.30); POTASSIUM 3.6 MMOL/L (3.5-5.1); SODIUM 148 MMOL/L (136-145)
[2018-07-27 06:31] LABS: HEMATOCRIT 18.4 % (42.0-52.0); MEAN CORPUSCULAR VOLUME 79 FL (80-99); PLATELET COUNT 115 K/UL (150-450); RED BLOOD COUNT 2.34 M/UL (4.70-6.10); RED CELL DISTRIBUTION WIDTH 21.1 % (11.6-14.8)
[2018-07-27 06:32] LABS: BILIRUBIN,DIRECT 0.8 MG/DL (0.0-0.3)
[2018-07-27 06:46] LABS: HEMOGLOBIN 6.1 G/DL (14.2-18.0); WHITE BLOOD COUNT 23.7 K/UL (4.8-10.8)
--- NOTE | 2018-07-27 06:50 | NUR ---
NURSE NOTES: WBC 23.7, Hgb 6.1. Called BOTH Jackson Macias and Zev. Left a message. Awaiting for return call. ABG still to be done
--- NOTE | 2018-07-27 07:00 | NUR ---
Received Patient on BIPAP 15/5 PS +10 Rate 16 Fio2 30%. Patient is currently labored breathing, looks uncomfortable. Breath sounds reveal rhonchi bilaterally. No secretions. Bipap plugged into red outlet, alarms on and audible. Will continue to monitor.
--- NOTE | 2018-07-27 07:24 | NUR ---
HAND-OFF: Dr Barclay came to see the patient. Report given to DERECK Cruz
--- NOTE | 2018-07-27 07:26 | Endoscopy Procedure Note ---
Endoscopy Procedure Note General Indication for Procedure: gib Procedures Performed: EGD Operative Findings/Diagnosis: severe upper esophagus stricture,, unable to get to the esophagus Specimen: none Pt Tolerated Procedure Well: Yes Estimated Blood Loss: none Anesthesia Anesthesiologist: tina Anesthesia: MAC Inserted Devices Implant(s) used?: No GI Core Measures 50 yrs or older w/o bx or poly: Not Applicable 10yrs. F/U not recommended: Not Applicable Trino Barclay MD July 27, 2018 07:26
--- NOTE | 2018-07-27 07:30 | NUR ---
NURSE NOTES: Received pt from DERECK Peoples. patient is lethargic, unable to arouse by voice, touch or pain. BIPAP 15/5, Fio2 30%, SPo2 100%, RR 21. Labored breathing noted. ABG ordered per Dr. Brothers. IV sites LFA 18G, RFA 20G, RAC 18G running sandostatin 50ml/hr, Protonix @25ml/hr and D5NS with 20 kcl@100ml/hr. NPO status maintained since admission. ABD large, round and firm. condom catheter draining dark clem colored urine to gravity, minimal drainage noted. Received orders for x1 PRBC and x1 FFP per Dr. Barclay.
[2018-07-27] MEDS ORDERED: Ketamine 500mg Inj ONE (08:56)
[2018-07-27] MEDS ORDERED: Succinylcholine 20mg/ml 10ml vial ONE ×2 (09:01→16:34)
[2018-07-27] MEDS ORDERED: Iothalamate Meglumine 60% 30ML INJ ONE ×3 (09:09→09:45)
--- NOTE | 2018-07-27 09:21 | Pre-Procedure Note/Attestation ---
Pre-Procedure Note/Attestation Complete Prior to Procedure Planned Procedure: not applicable Procedure Narrative: egd Indications for Procedure Pre-Operative Diagnosis: gib Attestation I attest that I discussed the nature of the procedure; its benefits; risks and complications; and alternatives (and the risks and benefits of such alternatives ), prior to the procedure, with the patient (or the patient's legal off premise service representative). I attest that, if there was a reasonable possibility of needing a blood transfusion, the patient (or the patient's legal off premise service representative) was given the [facility] standardized written summary, pursuant to the Yogesh Jatinder Blood Safety Act ([place] Health and Safety Code # 1645, as amended). I attest that I re-evaluated the patient just prior to the surgery and that there has been no change in the patient's H&P, except as documented below: Trino Barclay MD July 27, 2018 09:21
--- NOTE | 2018-07-27 09:35 | NUR ---
NURSE NOTES: Patient transported to OR for EGD performed by Dr. Barclay. Report given to DERECK Morgan and CAN Perez. No incidence during transfer. x1 PRBC transfusion started 924, VSS, no transfusion reaction noted.
[2018-07-27] MEDS ORDERED: Lidocaine 1% MPF 10mg/ml 5ml ONE (09:42)
[2018-07-27] MEDS ORDERED: Propofol 200mg/20ml IV ONE (09:42)
[2018-07-27] MEDS ORDERED: Dexamethasone 4mg/ml vial ONE (09:42)
[2018-07-27] MEDS ORDERED: ePHEDrine 50mg/ml Inj ONE (09:42)
[2018-07-27] MEDS ORDERED: Sodium Bicarbonate 50ml Carp ONE (09:44)
--- NOTE | 2018-07-27 10:03 | Endoscopy Procedure Note ---
Endoscopy Procedure Note General Indication for Procedure: gib Procedures Performed: EGD Operative Findings/Diagnosis: esoph varices Specimen: none Pt Tolerated Procedure Well: Yes Estimated Blood Loss: none Anesthesia Anesthesiologist: saravanan Anesthesia: MAC Inserted Devices Implant(s) used?: No GI Core Measures 50 yrs or older w/o bx or poly: Not Applicable 10yrs. F/U not recommended: Not Applicable Trino Barclay MD July 27, 2018 10:03
--- NOTE | 2018-07-27 10:38 | Immediate Post-Op Evaluation ---
Immediate Post-Op Evalulation Immediate Post-Op Evalulation Procedure: EGD Date of Evaluation: July 27, 2018 Time of Evaluation: 10:20 IV Fluids: 600 Blood Products: 250 Estimated Blood Loss: 10 Blood Pressure Systolic: 149 Blood Pressure Diastolic: 70 Pulse Rate: 90 Respiratory Rate: 14 O2 Sat by Pulse Oximetry: 100 Temperature (Fahrenheit): 98.0 Nausea: No Vomiting: No Complications none Patient Status: reacts, ventilated Hydration Status: other - receiving 8th unit of PRBD Drug: none Ana Dunham CRNA July 27, 2018 10:38
--- NOTE | 2018-07-27 10:39 | NUR ---
NURSE NOTES: Patient returned from OR. Received report from DERECK Morgan. See surgery notes. Orally intubated ETT 7.5/23cm, AC 16/TV600/Fio2 50%/PEEP+5. VSS: BP 159/78, HR 100, SPo2 100%, RR 16, T 97.8. PRBC transfusion in process. No transfusion reaction noted. Son and is at bedside and updated. Son will speak with family in [place] and will decide code status.
--- NOTE | 2018-07-27 10:40 | Anethesia Preoperative Eval ---
Anesthesia Pre-op PMH/ROS General Date of Evaluation: July 27, 2018 Time of Evaluation: 09:00 Anesthesiologist: johanny ASA Score: ASA 4 Mallampati Score Class I : Soft palate, uvula, fauces, pillars visible Class II: Soft palate, uvula, fauces visible Class III: Soft palate, base of uvula visible Class IV: Only hard plate visible Mallampati Classification: Class III Surgeon: rashid Diagnosis: gi bleed Surgical Procedure: egd Anesthesia History: none Social History: current smoker, alcohol use Family History: no anesthesia problems Allergies: Coded Allergies: No Known Allergies (Unverified , 07/25/18) Patient NPO?: Yes NPO Date: July 25, 2018 NPO Time: 20:00 - pt NPO since arrived to the hospital per RN Past Medical History Cardiovascular: Denies: HTN, CAD, [place], valve dz, arrhythmia, other Pulmonary: Denies: asthma, COPD, ALFREDA, other Gastrointestinal/Genitourinary: Denies: GERD, CRI, ESRD, other Neurologic/Psychiatric: Reports: depression/anxiety; Denies: dementia, CVA, TIA, other Endocrine: Denies: DM, hypothyroidism, steroids, other HEENT: Denies: cataract (L), cataract (R), glaucoma, [place] (L), [place] (R), other Hematology/Immune: Reports: anemia; Denies: DVT, bleeding disorder, other Other: obesity PMH Narrative: (1) Hemorrhagic shock (2) Gastrointestinal hemorrhage (3) Cirrhosis (4) Severe anemia (5) Esophageal varices PSxH Narrative: egd yesterday Anesthesia Pre-op Phys. Exam Physician Exam Last Vital Signs Date Time Temp Pulse Resp B/P (MAP) Pulse Ox O2 Delivery O2 Flow Rate FiO2 07/27/18 10:27 101 22 100 07/27/18 09:00 154/82 (106) 100 07/27/18 08:00 Bi-pap 10.0 07/27/18 07:00 97.4 Constitutional: other - on bipap; sats 90s bp stable Neurologic: other - reactive Cardiovascular: other - st Respiratory: other - ronchi Gastrointestinal: other - hard Airway Exam Mallampati Classification 3- unable to assess Mallampati Score: Class III MO: limited ROM: limited Teeth: missing, broken, loose Dentures: no upper, no lower Anesthesia Pre-op A/P Labs Hematology Test 07/26/18 19:00 07/27/18 05:15 White Blood Count 10.7 K/UL (4.8-10.8) # 23.7 K/UL (4.8-10.8) #*H Red Blood Count 3.25 M/UL (4.70-6.10) L 2.34 M/UL (4.70-6.10) L Hemoglobin 8.3 G/DL (14.2-18.0) #L 6.1 G/DL (14.2-18.0) *L Hematocrit 25.2 % (42.0-52.0) #L 18.4 % (42.0-52.0) L Mean Corpuscular Volume 78 FL (80-99) L 79 FL (80-99) L Mean Corpuscular Hemoglobin 25.7 PG (27.0-31.0) L 25.9 PG (27.0-31.0) L Mean Corpuscular Hemoglobin Concent 33.1 G/DL (32.0-36.0) 33.0 G/DL (32.0-36.0) Red Cell Distribution Width 19.6 % (11.6-14.8) H 21.1 % (11.6-14.8) H Platelet Count 95 K/UL (150-450) L 115 K/UL (150-450) L Mean Platelet Volume 6.4 FL (6.5-10.1) L 8.1 FL (6.5-10.1) Neutrophils (%) (Auto) % (45.0-75.0) % (45.0-75.0) Lymphocytes (%) (Auto) % (20.0-45.0) % (20.0-45.0) Monocytes (%) (Auto) % (1.0-10.0) % (1.0-10.0) Eosinophils (%) (Auto) % (0.0-3.0) % (0.0-3.0) Basophils (%) (Auto) % (0.0-2.0) % (0.0-2.0) Differential Total Cells Counted 100 100 Neutrophils % (Manual) 95 % (45-75) H 90 % (45-75) H Lymphocytes % (Manual) 2 % (20-45) L 3 % (20-45) L Monocytes % (Manual) 3 % (1-10) 5 % (1-10) Eosinophils % (Manual) 0 % (0-3) 0 % (0-3) Basophils % (Manual) 0 % (0-2) 0 % (0-2) Band Neutrophils 0 % (0-8) 2 % (0-8) Platelet Estimate Decreased L Decreased L Platelet Morphology Normal Normal Polychromasia 2+ 1+ Hypochromasia 1+ 1+ Anisocytosis 3+ 3+ Microcytosis 1+ 1+ Chemistry Test 07/27/18 05:15 Sodium Level 148 MMOL/L (136-145) H Potassium Level 3.6 MMOL/L (3.5-5.1) Chloride Level 116 MMOL/L (98-107) H Carbon Dioxide Level 14 MMOL/L (21-32) L Anion Gap 18 mmol/L (5-15) H Blood Urea Nitrogen 27 mg/dL (7-18) H Creatinine 1.5 MG/DL (0.55-1.30) #H Estimat Glomerular Filtration Rate 46.4 mL/min (>60) Glucose Level 186 MG/DL (74-106) H Calcium Level 7.5 MG/DL (8.5-10.1) L Total Bilirubin 2.4 MG/DL (0.2-1.0) H Direct Bilirubin 0.8 MG/DL (0.0-0.3) H Aspartate Amino Transf (AST/SGOT) 93 U/L (15-37) H Alanine Aminotransferase (ALT/SGPT) 110 U/L (12-78) H Alkaline Phosphatase 76 U/L (46-116) Ammonia 329 umol/L (11-32) H Total Protein 5.0 G/DL (6.4-8.2) L Albumin 2.0 G/DL (3.4-5.0) L Globulin 3.0 g/dL Albumin/Globulin Ratio 0.7 (1.0-2.7) L Studies Pre-op Studies: EKG - st Risk Assessment & Plan Plan: general glidescope Pre-Antibiotics Drug: none Ana Dunham CRNA July 27, 2018 10:40
--- NOTE | 2018-07-27 10:40 | NUR ---
Patient returned from OR intubated with 7.5 ETT at 23cm at the lip. Placed on vent settings ACVC RR 16, VT 600, FIO2 55%, PEEP +5. Will continue to monitor.
--- NOTE | 2018-07-27 11:48 | Diagnostic Imaging Report ---
EXAM: XR Chest, 1 View CLINICAL HISTORY: S/P LINE TECHNIQUE: Frontal view of the chest. COMPARISON: No relevant prior studies available. FINDINGS: Lungs: Hypoventilatory lungs. Bibasilar lung atelectasis. Pleural space: Unremarkable. No pneumothorax. Heart: Unremarkable. No cardiomegaly. Mediastinum: Unremarkable. Bones/joints: Unremarkable. Tubes, lines and devices: Difficult to tell if the endotracheal tube is in the trachea or in the esophagus. Suspect possibly in the esophagus, consider repositioning. Patient is rotated. There is gassy stomach and upper abdominal bowel. IMPRESSION: 1. Difficult to tell if the endotracheal tube is in the trachea or in the esophagus. Suspect possibly in the esophagus, consider repositioning. Patient is rotated. There is gassy stomach and upper abdominal bowel. 2. Hypoventilatory lungs. Bibasilar lung atelectasis. <MYCVCSECTION> Critical Value Communications 07/27/18 11:45 Call Nurse DERECK Cruz in ICU on 07/27 11:44 (-07:00)
--- NOTE | 2018-07-27 12:13 | NUR ---
Pulled ET Tube out 2cm per Dr. Fine. Patients lipline currently 21cm.
[2018-07-27] MEDS: Morphine Sulfate 2mg/ml Inj(IV/IM USE ONLY) IVP PRN ×2 (12:20→23:32)
--- NOTE | 2018-07-27 12:30 | NUR ---
NURSE NOTES: 9th PRBC started. No transfusion reaction noted. BP 187/74 HR 105, Spo2 100%, RR 21, T 99.3.
--- NOTE | 2018-07-27 12:45 | Procedure Note ---
DATE OF PROCEDURE: 07/26/2018 SURGEON: Trino Barclay M.D. PROCEDURE: Upper endoscopy. ANESTHESIA: Per Deny [facility]. INSTRUMENT: Olympus adult flexible upper endoscope. INDICATION: GI bleeding. REASON FOR PROCEDURE: The procedure, risks, benefits, and possible consequences, including hemorrhage, aspiration, perforation and infection, and alternative treatments, were explained to the patient/legal guardian by Dr. Trino Barclay and the patient/legal guardian understood and accepted these risks. PROCEDURE IN DETAIL: After informed consent was obtained and the patient actually was intubated for this procedure. The patient was altered and had some mild respiratory distress and the DRUM SANDER decided to intubate him, which was a great idea. Then after the patient was intubated, we tried to pass the endoscope, but there was a severe stricture in the upper esophageal sphincter opening. We could not pass the regular scope through. We switched to the smaller scope, even that scope we were not able to pass through. At this time, we realized that this procedure needs to be done under fluoroscopy and try to dilate the upper esophageal sphincter. We decided to postpone it tomorrow if the patient continues to bleed and we will try to do tomorrow. Meanwhile, continue on Protonix. Continue on octreotide drip. Continue to transfuse to keep hemoglobin above 7, and correct the coagulopathy with FFP and vitamin K. I want to thank Dr. Dontae Macias for this kind referral. Trino Barclay M.D. DR: NICOLAS JOB#: [id number] CC: Dontae Macias M.D.; Fax#: [phone]
--- NOTE | 2018-07-27 13:00 | Diagnostic Imaging Report ---
EXAM: XR Chest, 1 View CLINICAL HISTORY: S/P INTUB TECHNIQUE: Frontal view of the chest. COMPARISON: Chest x-ray, 07/27/18, 11:00 FINDINGS: Lungs: Hypoventilatory lungs with bibasilar lung atelectasis. Pleural space: Unremarkable. No pneumothorax. Heart: Unremarkable. No cardiomegaly. Mediastinum: Unremarkable. Bones/joints: Unremarkable. Tubes, lines and devices: Endotracheal tube appears in similar position to prior study. Again difficult to tell if within the esophagus or trachea. Correlate with CO2 readings. If in the trachea, may be pulled back 3 cm. Upper abdomen: Gassy stomach and bowel loops in the upper abdomen, slightly increased. IMPRESSION: 1. Endotracheal tube appears in similar position to prior study. Again difficult to tell if within the esophagus or trachea. Correlate with CO2 readings. If in the trachea, may be pulled back 3 cm. 2. Hypoventilatory lungs with bibasilar lung atelectasis. 3. Gassy stomach and bowel loops in the upper abdomen, slightly increased. <MYCVCSECTION> Critical Value Communications 07/27/18 13:00 Call Nurse DERECK Clements in ICU on 07/27 13:00 (-07:00)
--- NOTE | 2018-07-27 13:05 | NUR ---
CASE MANAGEMENT: REVIEW SI: UPPER GI BLEED . CIRRHOSIS EGD . BRONCHOSCOPY 07/27 T 97.4 HR 110 RR 30 BP 184/77 SAT 100% MECH VENT FIO2 100 WBC 23.7 H/H 6.1/18.4 NA 148 ABG: PH 7.505 PCO2 16.2 PO2 124.3 HCO3 12.5 IS: D5W w/KCl 20mEq IVF @ 100ML/HR CEFTRIAXONE IV Q24HR OCTREOTIDE GTT PROTONIX GTT PRBC'S ICU STATUS DCP: PATIENT IS FROM HOME
--- NOTE | 2018-07-27 13:07 | Consultation ---
History of Present Illness General Chief Complaint: Gastrointestinal Bleed Referring physician: JAYA SANTA Reason for Consultation: GI bleed Present Illness HPI critically ill male GI bleed attempted EGD but unable to tolerate and intubated in ICU being transfused CXR very concerning for possible ET tube misplacement Surgery called to evaluate and assist Allergies: Coded Allergies: No Known Allergies (Unverified , 07/25/18) Medication History Scheduled Furosemide* (Lasix*), 40 MG ORAL DAILY, (Reported) Potassium Chloride* (K-Dur*), 10 MEQ ORAL DAILY, (Reported) Spironolactone* (Spironolactone*), 50 MG ORAL DAILY, (Reported) Patient History Limited by: medical condition History Provided By: Medical Record, PMD Healthcare decision maker N Resuscitation status Full Code Advanced Directive on File Past Medical/Surgical History Past Medical/Surgical History: (1) Gastrointestinal hemorrhage (2) Cirrhosis (3) Severe anemia (4) Hemorrhagic shock (5) Esophageal varices Review of Systems ROS Narrative cannot obtain given medical condition Physical Exam General Appearance: mild distress Lines, tubes and drains: other HEENT: mucous membranes moist Neck: normal inspection Respiratory/Chest: decreased breath sounds Cardiovascular/Chest: tachycardia Abdomen: distended Extremities: other Skin Exam: other Neurologic: unresponsiveness Last 24 Hour Vital Signs Date Time Temp Pulse Resp B/P (MAP) Pulse Ox O2 Delivery O2 Flow Rate FiO2 07/27/18 12:00 Mechanical Ventilator 07/27/18 12:00 103 07/27/18 12:00 100 24 184/77 (112) 100 07/27/18 11:08 99 21 100 07/27/18 11:00 97 30 170/74 (106) 100 07/27/18 10:38 90 14 100 07/27/18 10:27 101 22 100 07/27/18 10:00 99 21 167/88 (114) 100 07/27/18 09:10 50 07/27/18 09:00 99 30 154/82 (106) 100 07/27/18 08:00 100 30 155/70 (98) 100 07/27/18 08:00 Bi-pap 10.0 07/27/18 08:00 100 07/27/18 08:00 30 07/27/18 07:00 97.4 100 29 154/82 (106) 100 5/4/19 06:45 101 29 100 Facial 30 07/27/18 06:00 100 28 149/65 (93) 100 07/27/18 05:00 30 07/27/18 05:00 100 28 129/61 (83) 100 07/27/18 04:45 99 27 100 Facial 30 07/27/18 04:45 101 27 Bi-pap 30 07/27/18 04:00 99.1 102 27 160/75 (103) 97 07/27/18 04:00 108 07/27/18 04:00 Nasal Cannula 2.0 07/27/18 03:00 105 27 155/63 (93) 97 07/27/18 02:00 110 27 154/58 (90) 98 07/27/18 01:00 115 28 168/89 (115) 98 07/27/18 00:00 Room Air 07/27/18 00:00 99.0 118 34 167/72 (103) 98 07/27/18 00:00 119 07/26/18 23:00 117 30 168/81 (110) 98 07/26/18 22:00 107 29 129/63 (85) 97 07/26/18 21:00 110 29 167/83 (111) 97 07/26/18 20:00 Room Air 07/26/18 20:00 98 07/26/18 20:00 109 29 137/77 (97) 96 07/26/18 19:00 99.3 105 26 167/69 (101) 95 07/26/18 18:00 97 24 167/69 (101) 93 07/26/18 17:00 81 23 167/66 (99) 94 07/26/18 16:00 Room Air 07/26/18 16:00 81 07/26/18 16:00 98.0 88 24 151/58 (89) 96 07/26/18 15:30 98 23 174/80 (111) 98 07/26/18 15:00 96 22 172/79 (110) 96 07/26/18 14:30 93 22 168/71 (103) 93 07/26/18 14:00 98 24 182/79 (113) 93 07/26/18 13:53 88 17 97 07/26/18 13:41 80 17 97 07/26/18 13:30 81 07/26/18 13:30 73 18 137/69 (91) 98 Intake and Output 07/26/18 07/27/18 19:00 07:00 Intake Total 2648 ml 1850 ml Output Total 1000 ml 1610 ml Balance 1648 ml 240 ml IV Total 2148 ml 1850 ml Blood Product 500 ml Output Urine Total 900 ml 1610 ml Other 100 ml # Bowel Movements 1 1 Laboratory Tests Test 07/26/18 19:00 07/27/18 05:15 07/27/18 07:35 White Blood Count 10.7 K/UL (4.8-10.8) # 23.7 K/UL (4.8-10.8) #*H Red Blood Count 3.25 M/UL (4.70-6.10) L 2.34 M/UL (4.70-6.10) L Hemoglobin 8.3 G/DL (14.2-18.0) #L 6.1 G/DL (14.2-18.0) *L Hematocrit 25.2 % (42.0-52.0) #L 18.4 % (42.0-52.0) L Mean Corpuscular Volume 78 FL (80-99) L 79 FL (80-99) L Mean Corpuscular Hemoglobin 25.7 PG (27.0-31.0) L 25.9 PG (27.0-31.0) L Mean Corpuscular Hemoglobin Concent 33.1 G/DL (32.0-36.0) 33.0 G/DL (32.0-36.0) Red Cell Distribution Width 19.6 % (11.6-14.8) H 21.1 % (11.6-14.8) H Platelet Count 95 K/UL (150-450) L 115 K/UL (150-450) L Mean Platelet Volume 6.4 FL (6.5-10.1) L 8.1 FL (6.5-10.1) Neutrophils (%) (Auto) % (45.0-75.0) % (45.0-75.0) Lymphocytes (%) (Auto) % (20.0-45.0) % (20.0-45.0) Monocytes (%) (Auto) % (1.0-10.0) % (1.0-10.0) Eosinophils (%) (Auto) % (0.0-3.0) % (0.0-3.0) Basophils (%) (Auto) % (0.0-2.0) % (0.0-2.0) Differential Total Cells Counted 100 100 Neutrophils % (Manual) 95 % (45-75) H 90 % (45-75) H Lymphocytes % (Manual) 2 % (20-45) L 3 % (20-45) L Monocytes % (Manual) 3 % (1-10) 5 % (1-10) Eosinophils % (Manual) 0 % (0-3) 0 % (0-3) Basophils % (Manual) 0 % (0-2) 0 % (0-2) Band Neutrophils 0 % (0-8) 2 % (0-8) Platelet Estimate Decreased L Decreased L Platelet Morphology Normal Normal Polychromasia 2+ 1+ Hypochromasia 1+ 1+ Anisocytosis 3+ 3+ Microcytosis 1+ 1+ Sodium Level 148 MMOL/L (136-145) H Potassium Level 3.6 MMOL/L (3.5-5.1) Chloride Level 116 MMOL/L (98-107) H Carbon Dioxide Level 14 MMOL/L (21-32) L Anion Gap 18 mmol/L (5-15) H Blood Urea Nitrogen 27 mg/dL (7-18) H Creatinine 1.5 MG/DL (0.55-1.30) #H Estimat Glomerular Filtration Rate 46.4 mL/min (>60) Glucose Level 186 MG/DL (74-106) H Calcium Level 7.5 MG/DL (8.5-10.1) L Total Bilirubin 2.4 MG/DL (0.2-1.0) H Direct Bilirubin 0.8 MG/DL (0.0-0.3) H Aspartate Amino Transf (AST/SGOT) 93 U/L (15-37) H Alanine Aminotransferase (ALT/SGPT) 110 U/L (12-78) H Alkaline Phosphatase 76 U/L (46-116) Ammonia 329 umol/L (11-32) H Total Protein 5.0 G/DL (6.4-8.2) L Albumin 2.0 G/DL (3.4-5.0) L Globulin 3.0 g/dL Albumin/Globulin Ratio 0.7 (1.0-2.7) L Arterial Blood pH 7.505 (7.350-7.450) Arterial Blood Partial Pressure CO2 16.2 mmHg (35.0-45.0) *L Arterial Blood Partial Pressure O2 124.3 mmHg (75.0-100.0) H Arterial Blood HCO3 12.5 mmol/L (22.0-26.0) *L Arterial Blood Oxygen Saturation 97.5 % (95-100) Arterial Blood Base Excess -9.7 (-2-2) *L Basilio Test Positive Height (Feet): 5 Height (Inches): 8.00 Weight (Pounds): 150 Medications Current Medications Medications (Trade) Dose Ordered Sig/Florentin Route PRN Reason Start Time Stop Time Status Last Admin Dose Admin Acetaminophen (Tylenol) 650 mg Q4H PRN ORAL fever 07/25/18 12:45 08/24/18 12:44 Al Hydroxide/Mg Hydroxide (Mylanta II) 30 ml Q6H PRN ORAL dyspepsia 07/25/18 12:45 08/24/18 12:44 Ceftriaxone Sodium 1 gm/ Dextrose 55 ml @ 110 mls/hr Q24H IVPB 07/26/18 14:00 08/02/18 13:59 07/26/18 15:42 Dextrose (Dextrose 50%) 25 ml Q30M PRN IV Hypoglycemia 07/25/18 12:45 08/24/18 12:44 Dextrose (Dextrose 50%) 50 ml Q30M PRN IV Hypoglycemia 07/25/18 12:45 08/24/18 12:44 Dextrose/ Electrolytes 1,000 ml @ 100 mls/hr Q10H IV 07/26/18 14:00 08/25/18 13:59 07/27/18 12:20 Diphenhydramine HCl (Benadryl) 25 mg Q6H PRN ORAL Itching/Pruritis 07/25/18 12:45 08/24/18 12:44 Morphine Sulfate (Morphine Sulfate) 2 mg Q4H PRN IVP severe Pain (Pain Scale 7-10) 07/25/18 12:45 08/01/18 12:44 07/27/18 12:20 Nitroglycerin (Ntg) 0.4 mg Q5M X 3 DOSES PRN SL Prn Chest Pain 07/25/18 12:45 08/24/18 12:44 Octreotide Acetate 500 mcg/ Sodium Chloride 500 ml @ 50 mls/hr Q10H IV 07/25/18 21:30 08/24/18 21:29 07/27/18 02:57 Ondansetron HCl (Zofran) 4 mg Q6H PRN IVP Nausea & Vomiting 07/25/18 12:45 08/24/18 12:44 07/26/18 04:15 Pantoprazole 80 mg/Sodium Chloride 250 ml @ 25 mls/hr Q10H IV 07/25/18 21:30 08/24/18 21:29 07/27/18 02:57 Polyethylene Glycol (Miralax) 17 gm HSPRN PRN ORAL Constipation 07/25/18 12:45 08/24/18 12:44 Temazepam (Restoril) 15 mg HSPRN PRN ORAL Insomnia 07/25/18 12:45 08/01/18 12:44 Assessment/Plan Problem List: (1) Gastrointestinal hemorrhage Assessment & Plan: GI Bleed acute being transfused EGD aborted intubated CXR with 1. Difficult to tell if the endotracheal tube is in the trachea or in the esophagus. Suspect possibly in the esophagus, consider repositioning. Patient is rotated. There is gassy stomach and upper abdominal bowel. 2. Hypoventilatory lungs. Bibasilar lung atelectasis. Urgent bronchoscopy done in ICU. ET tube in place anatomy with tracheomalacia short trachea tube in good positioning edema of airways mucus noted and cleaned ICD Codes: K92.2 - Gastrointestinal hemorrhage, unspecified SNOMED: 10555187 (2) Cirrhosis ICD Codes: K74.60 - Unspecified cirrhosis of liver SNOMED: 29361324 (3) Severe anemia ICD Codes: D64.9 - Anemia, unspecified SNOMED: 915262081 (4) Hemorrhagic shock ICD Codes: R57.8 - Other shock SNOMED: 725928 (5) Esophageal varices ICD Codes: I85.00 - Esophageal varices without bleeding SNOMED: 77749293 Alvaro Melton July 27, 2018 13:07
--- NOTE | 2018-07-27 13:10 | Operative Note - PDOC ---
Operative Note Operative Note Date of Operation/Procedure: July 27, 2018 Pre-op Diagnosis: respiratory insufficiency question of et tube placement Procedure: bronchoscopy Post-op Diagnosis: same as pre-op Surgeon: sanchez Anesthesia: moderate sedation, other Specimen: none Complications: none Condition: stable Estimated Blood Loss: none Drains: none Implant(s) used?: No Indications for Procedure see consult note needs urgent visualization to ensure location and positioning of ET tube Description of Procedure made comfortable at bedside vent tubing for scope placed pre oxygenated bronchoscopy passed and ET tube noted in trachea. tracheomalacia noted short trachea marisol noted and tube positioned appropriately mucus suctioned patient tolerated well Alvaro Melton July 27, 2018 13:10
[2018-07-27] MEDS: cefTRIAXone 1 GM in D5W 55 ML IVPB SCH (13:59)
--- NOTE | 2018-07-27 14:30 | NUR ---
NURSE NOTES: After intubation in OR, CXR shows ETT needs to be pulled back 5cm. Dr. Melton pulled back ETT but was notified by STAT RAD ETT needs to be pulled back 3cm more. RT pulled back 3cm and air leak found. Notified ERMD for reinsertion. CXR obtained to confirm correct placement.
--- NOTE | 2018-07-27 14:31 | NUR ---
Pushed ET Tube in 2cm because of air leak per Dr. Mcfarland. Patients current lip line is 23cm.
--- NOTE | 2018-07-27 14:36 | Emergency Room Report ---
History of Present Illness General Chief Complaint: Gastrointestinal Bleed Source: Medical Record, PMD Present Illness Allergies: Coded Allergies: No Known Allergies (Unverified , 07/25/18) Nursing Documentation-[facility] Past Medical History: No History, Except For Hx Cardiac Problems: No Hx Cancer: No Hx Neurological Problems: No Physical Exam Vital Signs Date Time Temp Pulse Resp B/P (MAP) Pulse Ox O2 Delivery O2 Flow Rate FiO2 07/25/18 10:21 97.5 89 20 96 Room Air 07/25/18 10:42 114/36 07/27/18 04:00 2.0 07/27/18 04:45 30 Procedures Intubation Progress I was called upstairs to evaluate patient's airway Patient has had a difficult course including to failed EGDs secondary to severe stricture It was noted by staff to the patient's balloon could potentially have a leak in the endotracheal tube There was a report that the ET tube had been which on approximately 3 cm after a reading by radiology Upon evaluation it appears that the ET tube is not deep enough and the balloon is visible in the airway Therefore balloon was deflated and ET tube advanced 3 cm through the vocal cords We had appropriate breath sounds after this and the balloon was inflated without any signs of leak x-rays obtained and shows appropriate ET tube placement refer to the x-ray report for that inpatient care handed back to primary physician's Medical Decision Making Diagnostic Impression: Primary Impression: Gastrointestinal hemorrhage Additional Impressions: Cirrhosis Severe anemia Chest X-Ray Diagnostic Results Chest X-Ray Diagnostic Results : Chest X-Ray Ordered: Yes # of Views/Limited/Complete: 1 View Indication: Other - ET tube EP Interpretation: Yes Interpretation: no consolidation, no effusion, no pneumothorax, other - ET tube appropriate Impression: No acute disease Electronically Signed by: Elisa Box DO Last Vital Signs Date Time Temp Pulse Resp B/P (MAP) Pulse Ox O2 Delivery O2 Flow Rate FiO2 07/27/18 13:23 106 23 100 07/27/18 13:00 98.6 182/76 (111) 100 07/27/18 12:00 Mechanical Ventilator 07/27/18 08:00 10.0 Disposition: ADMITTED INPATIENT Condition: Critical Referrals: NOT CHOSEN IPA/,REFERRING (PCP) Elisa Box DO July 27, 2018 14:36
--- NOTE | 2018-07-27 14:59 | Internal Med Progress Note ---
Subjective Physician Name John Young Attending Physician Dontae Macias MD Current Medications Medications (Trade) Dose Ordered Sig/Florentin Route PRN Reason Start Time Stop Time Status Last Admin Dose Admin Acetaminophen (Tylenol) 650 mg Q4H PRN ORAL fever 07/25/18 12:45 08/24/18 12:44 Al Hydroxide/Mg Hydroxide (Mylanta II) 30 ml Q6H PRN ORAL dyspepsia 07/25/18 12:45 08/24/18 12:44 Ceftriaxone Sodium 1 gm/ Dextrose 55 ml @ 110 mls/hr Q24H IVPB 07/26/18 14:00 08/02/18 13:59 07/27/18 13:59 Dextrose (Dextrose 50%) 25 ml Q30M PRN IV Hypoglycemia 07/25/18 12:45 08/24/18 12:44 Dextrose (Dextrose 50%) 50 ml Q30M PRN IV Hypoglycemia 07/25/18 12:45 08/24/18 12:44 Dextrose/ Electrolytes 1,000 ml @ 100 mls/hr Q10H IV 07/26/18 14:00 08/25/18 13:59 07/27/18 13:49 Diphenhydramine HCl (Benadryl) 25 mg Q6H PRN ORAL Itching/Pruritis 07/25/18 12:45 08/24/18 12:44 Morphine Sulfate (Morphine Sulfate) 2 mg Q4H PRN IVP severe Pain (Pain Scale 7-10) 07/25/18 12:45 08/01/18 12:44 07/27/18 12:20 Nitroglycerin (Ntg) 0.4 mg Q5M X 3 DOSES PRN SL Prn Chest Pain 07/25/18 12:45 08/24/18 12:44 Octreotide Acetate 500 mcg/ Sodium Chloride 500 ml @ 50 mls/hr Q10H IV 07/25/18 21:30 08/24/18 21:29 07/27/18 13:30 Ondansetron HCl (Zofran) 4 mg Q6H PRN IVP Nausea & Vomiting 07/25/18 12:45 08/24/18 12:44 07/26/18 04:15 Pantoprazole 80 mg/Sodium Chloride 250 ml @ 25 mls/hr Q10H IV 07/25/18 21:30 08/24/18 21:29 07/27/18 13:46 Polyethylene Glycol (Miralax) 17 gm HSPRN PRN ORAL Constipation 07/25/18 12:45 08/24/18 12:44 Temazepam (Restoril) 15 mg HSPRN PRN ORAL Insomnia 07/25/18 12:45 08/01/18 12:44 Allergies: Coded Allergies: No Known Allergies (Unverified , 07/25/18) Objective Last Vital Signs Date Time Temp Pulse Resp B/P (MAP) Pulse Ox O2 Delivery O2 Flow Rate FiO2 07/27/18 14:38 105 22 100 07/27/18 14:00 174/78 (110) 100 07/27/18 13:00 98.6 07/27/18 12:00 Mechanical Ventilator 07/27/18 08:00 10.0 Laboratory Tests Test 07/26/18 19:00 07/27/18 05:15 07/27/18 07:35 07/27/18 13:30 White Blood Count 10.7 K/UL (4.8-10.8) # 23.7 K/UL (4.8-10.8) #*H Red Blood Count 3.25 M/UL (4.70-6.10) L 2.34 M/UL (4.70-6.10) L Hemoglobin 8.3 G/DL (14.2-18.0) #L 6.1 G/DL (14.2-18.0) *L Hematocrit 25.2 % (42.0-52.0) #L 18.4 % (42.0-52.0) L Mean Corpuscular Volume 78 FL (80-99) L 79 FL (80-99) L Mean Corpuscular Hemoglobin 25.7 PG (27.0-31.0) L 25.9 PG (27.0-31.0) L Mean Corpuscular Hemoglobin Concent 33.1 G/DL (32.0-36.0) 33.0 G/DL (32.0-36.0) Red Cell Distribution Width 19.6 % (11.6-14.8) H 21.1 % (11.6-14.8) H Platelet Count 95 K/UL (150-450) L 115 K/UL (150-450) L Mean Platelet Volume 6.4 FL (6.5-10.1) L 8.1 FL (6.5-10.1) Neutrophils (%) (Auto) % (45.0-75.0) % (45.0-75.0) Lymphocytes (%) (Auto) % (20.0-45.0) % (20.0-45.0) Monocytes (%) (Auto) % (1.0-10.0) % (1.0-10.0) Eosinophils (%) (Auto) % (0.0-3.0) % (0.0-3.0) Basophils (%) (Auto) % (0.0-2.0) % (0.0-2.0) Differential Total Cells Counted 100 100 Neutrophils % (Manual) 95 % (45-75) H 90 % (45-75) H Lymphocytes % (Manual) 2 % (20-45) L 3 % (20-45) L Monocytes % (Manual) 3 % (1-10) 5 % (1-10) Eosinophils % (Manual) 0 % (0-3) 0 % (0-3) Basophils % (Manual) 0 % (0-2) 0 % (0-2) Band Neutrophils 0 % (0-8) 2 % (0-8) Platelet Estimate Decreased L Decreased L Platelet Morphology Normal Normal Polychromasia 2+ 1+ Hypochromasia 1+ 1+ Anisocytosis 3+ 3+ Microcytosis 1+ 1+ Sodium Level 148 MMOL/L (136-145) H Potassium Level 3.6 MMOL/L (3.5-5.1) Chloride Level 116 MMOL/L (98-107) H Carbon Dioxide Level 14 MMOL/L (21-32) L Anion Gap 18 mmol/L (5-15) H Blood Urea Nitrogen 27 mg/dL (7-18) H Creatinine 1.5 MG/DL (0.55-1.30) #H Estimat Glomerular Filtration Rate 46.4 mL/min (>60) Glucose Level 186 MG/DL (74-106) H Calcium Level 7.5 MG/DL (8.5-10.1) L Total Bilirubin 2.4 MG/DL (0.2-1.0) H Direct Bilirubin 0.8 MG/DL (0.0-0.3) H Aspartate Amino Transf (AST/SGOT) 93 U/L (15-37) H Alanine Aminotransferase (ALT/SGPT) 110 U/L (12-78) H Alkaline Phosphatase 76 U/L (46-116) Ammonia 329 umol/L (11-32) H Total Protein 5.0 G/DL (6.4-8.2) L Albumin 2.0 G/DL (3.4-5.0) L Globulin 3.0 g/dL Albumin/Globulin Ratio 0.7 (1.0-2.7) L Arterial Blood pH 7.505 (7.350-7.450) 7.405 (7.350-7.450) Arterial Blood Partial Pressure CO2 16.2 mmHg (35.0-45.0) *L 27.0 mmHg (35.0-45.0) L Arterial Blood Partial Pressure O2 124.3 mmHg (75.0-100.0) H 450.0 mmHg (75.0-100.0) H Arterial Blood HCO3 12.5 mmol/L (22.0-26.0) *L 16.5 mmol/L (22.0-26.0) *L Arterial Blood Oxygen Saturation 97.5 % (95-100) 98.5 % (95-100) Arterial Blood Base Excess -9.7 (-2-2) *L -7.3 (-2-2) L Basilio Test Positive Positive Microbiology Date/Time Source Procedure Growth Status 07/25/18 14:05 Nasal Nares MRSA Culture - Final NO METHICILLIN RESISTANT STAPH AUREUS... Complete 07/25/18 14:05 Rectum VRE Culture - Final NO VANCOMYCIN RESISTANT ENTEROCOCCUS ... Resulted 07/25/18 14:05 Rectum Pending Resulted Intake and Output 07/26/18 07/27/18 19:00 07:00 Intake Total 2648 ml 1850 ml Output Total 1000 ml 1610 ml Balance 1648 ml 240 ml IV Total 2148 ml 1850 ml Blood Product 500 ml Output Urine Total 900 ml 1610 ml Other 100 ml # Bowel Movements 1 1 Assessment/Plan Assessment/Plan ASSESSMENT: 1. Severe anemia, most likely secondary to acute blood loss. 2. Acute upper GI bleed. 3. Alcoholism. 4. Liver cirrhosis. 5. Morbid obesity. Treatment: 1. Anemia Acute blood loss from GI bleed. S/P transfusion 8 units PRBC and 2 units FFP 2. Upper Gastrointestinal hemorrhage. See GI note. 3. alcoholic liver cirrhosis-see GI note. 4. alcohol dependence 5. Morbid obesity John Young MD July 27, 2018 14:59
--- NOTE | 2018-07-27 15:26 | NUR ---
NURSE NOTES: received orders for PICC placement per CHAN Roy
[2018-07-27] MEDS ORDERED: Lidocaine 1% Plain 30 ml INJ PRN (15:30)
[2018-07-27] MEDS ORDERED: Heparin1,000 units/500ml Premix(Conc:2 units/ml) IV PRN (15:30)
--- NOTE | 2018-07-27 15:36 | Diagnostic Imaging Report ---
EXAM: XR Chest, 1 View CLINICAL HISTORY: S/P INTUB TECHNIQUE: Frontal view of the chest. COMPARISON: Chest x-ray, 07/27/18 1150 FINDINGS: Lungs: Bibasilar lung atelectasis. Pleural space: Unremarkable. No pneumothorax. Heart: Unremarkable. No cardiomegaly. Mediastinum: Unremarkable. Bones/joints: Unremarkable. Tubes, lines and devices: Endotracheal tube has been pulled back and is now 3.5 cm above the marisol in good position. IMPRESSION: Endotracheal tube has been pulled back and is now 3.5 cm above the marisol in good position.
[2018-07-27] MEDS ORDERED: Tubing IV Blood Pump IV ONE (16:11)
--- NOTE | 2018-07-27 17:00 | Procedure Note ---
DATE OF PROCEDURE: 07/27/2018 SURGEON: Trino Barclay M.D. PROCEDURE: Upper endoscopy with dilation. ANESTHESIA: Per Ana Dunham CRNA. INSTRUMENT: Olympus adult flexible upper endoscope. INDICATION: GI bleeding. REASON FOR PROCEDURE: The procedure, risks, benefits, and possible consequences, including hemorrhage, aspiration, perforation and infection, and alternative treatments, were explained to the patient/legal guardian by Dr. Trino Barclay and the patient/legal guardian understood and accepted these risks. PROCEDURE IN DETAIL: After informed consent was obtained and the patient was adequately sedated, Olympus upper endoscope was advanced from the mouth into the oropharynx. We had the same problem as yesterday, we could not pass the scope. So over the fluoroscopy, using a dilator, we passed first the wire, confirmed the location of the esophagus, injected some contrast again for double confirmation. Then, we started our dilation. We dilated up to about 10 mm. After 10 mm dilation, we were able to pass the upper scope through into the esophagus. There was a lot of blood in the esophagus and in the stomach. There was some varices seen at the GE junction and below the GE junction. Not actively pumping blood. There was not significant columns of esophageal varices in the upper or mid esophagus, but there were may be few right at the GE junction and junction. In the stomach, there was blood and blood products. We could not examine the GE junction and evaluation of gastric varices was limited given there was a blood clot sitting in that area. There was no evidence of any ulceration. No obvious bleeding from any other source. At this time, we removed upper scope, tried to put the banding device through, but because of the stricture, it was so tight, we could not pass the banding device into the esophagus. At this time, we terminated the procedure. The patient was intubated for this procedure and was transferred to ICU intubated. Plan will be to continue on monitoring H and H and transfuse to keep hemoglobin above 7. Continue on octreotide and Protonix drips. Continue giving FFP for anticoagulation. We will follow closely. The patient overall has a poor prognosis. Trino Chelsea Barclay DR: CARISSA JOB#: [id number] CC:
--- NOTE | 2018-07-27 17:48 | NUR ---
NURSE NOTES: 10th PRBC infusing well. no txn rxn. PICC consent obtained from sonMalcolm via telephone by 2 RN's. Turned and repositioned. Kept dry and clean. Oral care given.
--- NOTE | 2018-07-27 19:25 | NUR ---
HAND-OFF: Report given to DERECK Peoples using SBAR.
--- NOTE | 2018-07-27 19:26 | NUR ---
NURSE NOTES: Endorsement received from DERECK Cruz. Patient obtunded. No eye opening, no motor response. Unable to determine pupil response. Orally intubated with ET 7.5 23, AC 16 VT 600 PEEP 5 50%. Bloody secretion from the mouth, scant pinkish secretion from ET. Sinus tach on the monitor. Modi F16 draining to urimeter. [place] colored urine. With Right AC g18, right forearm g 20, left forearm g18. S/P 4 units PRBC transfused today. To transfuse 1 unit FFP. Ongoing Sandostatin drip at 50ml/hr, Protonix drip at 25 ml/hr, D5NS +KCL 20meqs at 100ml/hr. Head of bed elevated. Bed alarm on, locked and in low position. Call light within reach.
--- NOTE | 2018-07-27 19:51 | NUR ---
NURSE NOTES: Informed Dr. Barclay that 1 unit of FFP still to be transfused, CBC and INR to be checked 1 hour post transfusion. Noted and carried out.
[2018-07-27] MEDS: Dyna-Hex 2% Top Sol 2oz TOPIC SCH (20:00)
--- NOTE | 2018-07-27 20:30 | NUR ---
NURSE NOTES: 1 unit FFP checked with Charge Nurse at bedside, verified with patient ID band. Transfusion started.
--- NOTE | 2018-07-27 20:45 | NUR ---
NURSE NOTES: No transfusion reaction noted. Increased rate to consume in 1 & 1/2hrs
--- NOTE | 2018-07-27 22:00 | NUR ---
NURSE NOTES: FFP consumed. No transfusion reaction noted.
--- NOTE | 2018-07-27 23:20 | NUR ---
NURSE NOTES: Patient started twitching from the leg that spread to the entire left side. Tonic clonic seizure. Increased FiO2 to 100%. Bloody secretions coming out from the mouth, suctioned. Remained with the patient while charge nurse called Drs. Brothers and Dr. Macias. Left a message, awaiting for return call.
--- NOTE | 2018-07-27 23:45 | NUR ---
NURSE NOTES: Informed Nurse Shipping Support Clerk regarding the situation. Dr. Macias's home phone number received from Nurse Shipping Support Clerk. Received telephone order to give Ativan 1mg Q2 PRN.
[2018-07-27 23:47] LABS: HEMATOCRIT 27.3 % (42.0-52.0); MEAN CORPUSCULAR VOLUME 83 FL (80-99); PLATELET COUNT 88 K/UL (150-450); RED BLOOD COUNT 3.31 M/UL (4.70-6.10); RED CELL DISTRIBUTION WIDTH 18.7 % (11.6-14.8); WHITE BLOOD COUNT 12.4 K/UL (4.8-10.8)
[2018-07-27] MEDS ORDERED: LORazepam Inj 2mg/ml 1ml ONE (23:48)
[2018-07-27 23:50] LABS: INR 1.4 (0.9-1.1)
[2018-07-27 23:53] LABS: HEMOGLOBIN 9.3 G/DL (14.2-18.0)
[2018-07-27] MEDS: LORazepam Inj 2mg/ml 1ml IV PRN (23:54)
--- NOTE | 2018-07-27 23:55 | NUR ---
NURSE NOTES: Patient stopped seizing. Side rails padded. Decreased FiO2 back to 50%. Son at bedside updated. As per him his father had one seizure episode many years ago but never had another one after that until this episode.
[2018-07-28] VITALS (24 sets, daily range): BP systolic 142–174; BP diastolic 68–87
--- NOTE | 2018-07-28 02:00 | NUR ---
NURSE NOTES: Patient obtunded. No response to pain. Very thick scant bloody secretion from ET. Generalized swelling and edema, periorbital edema noted. Bilateral lower and upper extremities elevated.
--- NOTE | 2018-07-28 04:00 | NUR ---
NURSE NOTES: Oral care, bed bath, change of linens done.-
[2018-07-28 04:44] LABS: HEMATOCRIT 27.4 % (42.0-52.0); HEMOGLOBIN 9.2 G/DL (14.2-18.0); MEAN CORPUSCULAR VOLUME 83 FL (80-99); PLATELET COUNT 92 K/UL (150-450); RED BLOOD COUNT 3.31 M/UL (4.70-6.10); RED CELL DISTRIBUTION WIDTH 18.4 % (11.6-14.8); WHITE BLOOD COUNT 12.2 K/UL (4.8-10.8)
[2018-07-28] MEDS: LORazepam Inj 2mg/ml 1ml IV PRN (04:48)
[2018-07-28 05:12] LABS: INR 1.4 (0.9-1.1)
[2018-07-28 05:18] LABS: ALANINE AMINOTRANSFERASE 117 U/L (12-78); ALBUMIN 2.2 G/DL (3.4-5.0); ALBUMIN/GLOBULIN RATIO 0.7 (1.0-2.7); ALKALINE PHOSPHATASE 78 U/L (46-116); ANION GAP 11 mmol/L (5-15); ASPARTATE AMINO TRANSFERASE 81 U/L (15-37); BILIRUBIN,TOTAL 4.4 MG/DL (0.2-1.0); BLOOD UREA NITROGEN 30 mg/dL (7-18); CALCIUM 7.8 MG/DL (8.5-10.1); CARBON DIOXIDE 20 MMOL/L (21-32); CHLORIDE 123 MMOL/L (98-107); CREATININE 1.1 MG/DL (0.55-1.30); POTASSIUM 3.6 MMOL/L (3.5-5.1); SODIUM 154 MMOL/L (136-145)
--- NOTE | 2018-07-28 06:00 | NUR ---
6NURSE NOTES: Patient condition remains the same. Son at bedside
[2018-07-28 06:34] LABS: BILIRUBIN,DIRECT 2.7 MG/DL (0.0-0.3)
--- NOTE | 2018-07-28 07:10 | NUR ---
RESPIRATORY NOTE: Received pt on ordered vent settings. Pt Endotracheal tube is patent and secured via anchor fast. Suctioned pt prn. vent alarms are on and audible. Vent is plugged into red outlet. Will monitor pt progress.
--- NOTE | 2018-07-28 07:18 | NUR ---
NURSE NOTES: Received pt from DERECK Peoples. patient is obtunded, non-responsive to deep pain. Bilateral carmella-orbital edema noted. Orally intubated, ETT 7.5/23cm at lip line. Vent settings AC 16/TV600/Pui092%/PEEP+5. Breathing less agonal than yesterday. Received orders to change IVF to D5W with 20meq KCL@100ml/hr. IV LFA 18G, RAC 18G, RFA 20G running Sandosatin@50ml/hr, Protonix@25ml/hr and IVF. Seizure precautions in place, side rails padded. FC draining orange colored urine to gravity. NPO maintained. Abd large, firm and distended. MD's are aware. Bed locked, alarmed and in lowest position. Will continue plan of care.
--- NOTE | 2018-07-28 07:20 | NUR ---
HAND-OFF: Report given to DERECK Cruz.
[2018-07-28] MEDS ORDERED: D5 1/2NS w/KCl 20mEq 1,000 ML IV SCH (09:00)
[2018-07-28] MEDS: D5W w/KCl 20mEq 1,000 ML IV SCH ×2 (09:00→19:35)
--- NOTE | 2018-07-28 09:23 | NUR ---
NURSE NOTES: Received orders to give x1 banana bag per Dr. Barclay.
--- NOTE | 2018-07-28 09:24 | General Progress Note ---
Assessment/Plan Problem List: (1) Severe anemia ICD Codes: D64.9 - Anemia, unspecified SNOMED: 992015603 (2) Gastrointestinal hemorrhage ICD Codes: K92.2 - Gastrointestinal hemorrhage, unspecified SNOMED: 58384616 (3) Esophageal varices ICD Codes: I85.00 - Esophageal varices without bleeding SNOMED: 99060673 (4) Cirrhosis ICD Codes: K74.60 - Unspecified cirrhosis of liver SNOMED: 62962189 (5) Hemorrhagic shock ICD Codes: R57.8 - Other shock SNOMED: 436500 Assessment/Plan: s/p EGD x2 more stable today cont octreotide and ppi banana bag pulm care fu Subjective ROS Limited/Unobtainable: No Allergies: Coded Allergies: No Known Allergies (Unverified , 07/25/18) Objective Last 24 Hour Vital Signs Date Time Temp Pulse Resp B/P (MAP) Pulse Ox O2 Delivery O2 Flow Rate FiO2 07/28/18 08:00 Mechanical Ventilator 07/28/18 08:00 50 07/28/18 08:00 96 19 153/78 (103) 98 07/28/18 07:10 100 19 50 07/28/18 07:00 99.2 97 16 146/72 (96) 98 07/28/18 06:00 98 19 142/70 (94) 98 07/28/18 05:00 102 19 144/72 (96) 98 07/28/18 04:53 110 21 50 07/28/18 04:00 50 07/28/18 04:00 Mechanical Ventilator 07/28/18 04:00 99.5 107 21 159/68 (98) 99 07/28/18 04:00 108 07/28/18 03:30 108 22 50 07/28/18 03:00 108 21 164/69 (100) 99 07/28/18 02:00 109 23 170/74 (106) 99 07/28/18 01:30 111 22 50 07/28/18 01:00 111 23 171/70 (103) 99 07/28/18 00:34 99.3 07/28/18 00:00 50 07/28/18 00:00 Mechanical Ventilator 07/28/18 00:00 112 07/28/18 00:00 99.8 105 23 174/78 (110) 99 07/27/18 23:16 105 23 50 07/27/18 23:00 105 23 174/78 (110) 99 07/27/18 22:00 99.2 101 19 153/69 (97) 99 07/27/18 21:30 102 27 50 07/27/18 21:00 104 26 161/82 (108) 99 07/27/18 20:00 105 07/27/18 20:00 Mechanical Ventilator 07/27/18 20:00 50 07/27/18 20:00 99.3 104 26 183/88 (119) 99 07/27/18 19:30 104 25 50 07/27/18 19:00 107 22 155/86 (109) 100 07/27/18 18:00 102 24 183/89 (120) 100 07/27/18 17:11 105 26 55 07/27/18 17:00 98.8 103 26 169/77 (107) 100 07/27/18 16:00 104 07/27/18 16:00 103 25 163/81 (108) 100 07/27/18 16:00 Mechanical Ventilator 07/27/18 16:00 50 07/27/18 15:00 103 24 162/86 (111) 100 07/27/18 14:38 105 22 55 07/27/18 14:00 105 24 174/78 (110) 100 07/27/18 13:23 106 23 100 07/27/18 13:00 98.6 110 24 182/76 (111) 100 07/27/18 12:00 Mechanical Ventilator 07/27/18 12:00 103 07/27/18 12:00 100 24 184/77 (112) 100 07/27/18 11:08 99 21 100 07/27/18 11:00 97 30 170/74 (106) 100 07/27/18 10:38 90 14 100 07/27/18 10:27 101 22 100 07/27/18 10:00 99 21 167/88 (114) 100 Intake and Output 07/27/18 07/28/18 19:00 07:00 Intake Total 2050 ml 1750 ml Output Total 1250 ml 775 ml Balance 800 ml 975 ml IV Total 2050 ml 1750 ml Output Urine Total 1250 ml 775 ml # Bowel Movements 3 Laboratory Tests 07/27/18 13:30: Arterial Blood pH 7.405, Arterial Blood Partial Pressure CO2 27.0L, Arterial Blood Partial Pressure O2 450.0H, Arterial Blood HCO3 16.5*L, Arterial Blood Oxygen Saturation 98.5, Arterial Blood Base Excess -7.3L, Basilio Test Positive 07/27/18 23:10: White Blood Count 12.4H, Red Blood Count 3.31L, Hemoglobin 9.3#L, Hematocrit 27.3#L, Mean Corpuscular Volume 83, Mean Corpuscular Hemoglobin 28.1, Mean Corpuscular Hemoglobin Concent 34.1, Red Cell Distribution Width 18.7H, Platelet Count 88L, Mean Platelet Volume 7.7, Neutrophils (%) (Auto) , Lymphocytes (%) (Auto) , Monocytes (%) (Auto) , Eosinophils (%) (Auto) , Basophils (%) (Auto) , Differential Total Cells Counted 100, Neutrophils % ( Manual) 90H, Lymphocytes % (Manual) 7L, Monocytes % (Manual) 3, Eosinophils % ( Manual) 0, Basophils % (Manual) 0, Band Neutrophils 0, Platelet Estimate DecreasedL, Platelet Morphology Normal, Anisocytosis 1+, Prothrombin Time 14.8H , Prothromb Time International Ratio 1.4H 07/28/18 04:10: White Blood Count 12.2H, Red Blood Count 3.31L, Hemoglobin 9.2L, Hematocrit 27.4L, Mean Corpuscular Volume 83, Mean Corpuscular Hemoglobin 27.8, Mean Corpuscular Hemoglobin Concent 33.5, Red Cell Distribution Width 18.4H, Platelet Count 92L, Mean Platelet Volume 6.4L, Neutrophils (%) (Auto) , Lymphocytes (%) (Auto) , Monocytes (%) (Auto) , Eosinophils (%) (Auto) , Basophils (%) (Auto) , Neutrophils % (Manual) [Pending], Lymphocytes % (Manual) [Pending], Platelet Estimate [Pending], Platelet Morphology [Pending], Prothrombin Time 14.9H, Prothromb Time International Ratio 1.4H, Sodium Level 154H, Potassium Level 3.6, Chloride Level 123H, Carbon Dioxide Level 20L, Anion Gap 11, Blood Urea Nitrogen 30H, Creatinine 1.1, Estimat Glomerular Filtration Rate > 60, Glucose Level 231H, Calcium Level 7.8L, Total Bilirubin 4.4H, Direct Bilirubin 2.7H, Aspartate Amino Transf (AST/SGOT) 81H, Alanine Aminotransferase (ALT/SGPT) 117H, Alkaline Phosphatase 78, Total Protein 5.5L, Albumin 2.2L, Globulin 3.3, Albumin/Globulin Ratio 0.7L Height (Feet): 5 Height (Inches): 8.00 Weight (Pounds): 181 General Appearance: lethargic EENT: normal ENT inspection Neck: supple Cardiovascular: tachycardia Respiratory/Chest: decreased breath sounds Abdomen: soft, decreased bowel sounds, distended Extremities: non-tender Trino Barclay MD July 28, 2018 09:24
--- NOTE | 2018-07-28 10:10 | NUR ---
RD ASSESSMENT & RECOMMENDATIONS SEE CARE ACTIVITY FOR COMPLETE ASSESSMENT DAILY ESTIMATED NEEDS: Needs based on Critical care, liver dz 62.8kg adj 22-28 kcals/kg 6060-0822 total kcals 1.2-2 g protein/kg 75-126 g total protein Fluid per MD NUTRITION DIAGNOSIS: 1) Swallowing difficulty r/t resp status as evidenced by pt is orally intubated, ICU status, NPO. 2) Altered GI fxn r/t GIB and h/o alcoholism and liver cirrhosis as evidenced by severe anemia (adm w/ hgb 1.8*), acute GIB, s/p multiple PRBC, s/p EGD unable to perform banding of varices. CURRENT TF: NPO ENTERAL NUTRITION RECOMMENDATIONS: As medically able: Vital AF 1.2 @50ml/hr to provide 1200ml, 1440 kcal, 90g pro, 973ml free H2o - MEDICALLY ABLE TO PLACE FEEDING TUBE, REC ELEMENTAL AND CARB CONTROL FORMULA FOR FEEDS. - Start Vital 1.2 @20ml for 6hrs, advance as tolerated 10ml/hr q4-6 hrs to goal - Flush per MD. HOB over 30 degrees TPN Comment: CONSULT RD IF PT REMAINS INTUBATED AND UNABLE TO PLACE FEEDING TUBE ---- ADDITIONAL RECOMMENDATIONS: 1) Calibrated bed scale wts 2) TF recs as above MEDICALLY ABLE 3) Consider TPN if pt remains if unable to extubate 4) Cont to add banana bag + Vit B1
[2018-07-28] MEDS ORDERED: Thiamine 100mg in D5W 55ml IVPB SCH (11:00)
[2018-07-28] MEDS: Pantoprazole 80 MG in NS 250 ML IV SCH ×2 (11:21→19:34)
[2018-07-28] MEDS: Octreotide Acetate 500 MCG in Sodium Chloride 499 ML IV SCH ×2 (11:21→19:34)
[2018-07-28] MEDS ORDERED: NovoLOG Insulin Flexpen SUBQ SCH (11:30)
[2018-07-28] MEDS: NovoLOG Insulin Flexpen SUBQ SCH ×3 (11:41→23:47)
[2018-07-28] MEDS ORDERED: MAGNESIUM SULFATE IV SCH (12:00)
[2018-07-28] MEDS ORDERED: MULTIVITAMIN IV SCH (12:00)
[2018-07-28] MEDS ORDERED: [UNRECOGNIZED DRUG - OTHER] IV SCH (12:00)
[2018-07-28] MEDS ORDERED: FOLIC ACID IV SCH (12:00)
--- NOTE | 2018-07-28 12:48 | NUR ---
NURSE NOTES: VSS. Turned and repositioned. Kept dry and clean. Condition still the same.
--- NOTE | 2018-07-28 12:58 | NUR ---
CASE MANAGEMENT: REVIEW SI: UPPER GI BLEED . CIRRHOSIS EGD . BRONCHOSCOPY 07/27 T 99.5 HR 105 RR 18 BP 154/74 SAT 98% MECH VENT FIO2 50 WBC 12.2 H/H 9.2/27.4 NA 154 IS: BANANA BAG IVF X1 D5W w/KCl 20mEq IVF @ 100ML/HR CEFTRIAXONE IV Q24HR OCTREOTIDE GTT PROTONIX GTT ICU STATUS DCP: PATIENT IS FROM HOME
--- NOTE | 2018-07-28 13:26 | Surgery Progress Note ---
Surgery Progress Note Subjective Procedure Performed bronchoscopy Additional Comments more stable today. multiple transfusions. exam unchanged. prognosis guarded Objective Last 24 Hour Vital Signs Date Time Temp Pulse Resp B/P (MAP) Pulse Ox O2 Delivery O2 Flow Rate FiO2 07/28/18 12:00 50 07/28/18 12:00 99.6 94 18 154/74 (100) 98 07/28/18 12:00 96 07/28/18 12:00 Mechanical Ventilator 07/28/18 11:00 94 18 156/72 (100) 98 07/28/18 10:44 104 21 50 07/28/18 10:00 97 18 146/71 (96) 98 07/28/18 09:00 98 15 151/73 (99) 98 07/28/18 08:46 102 20 50 07/28/18 08:00 98 07/28/18 08:00 Mechanical Ventilator 07/28/18 08:00 50 07/28/18 08:00 96 19 153/78 (103) 98 07/28/18 07:10 100 19 50 07/28/18 07:00 99.2 97 16 146/72 (96) 98 07/28/18 06:00 98 19 142/70 (94) 98 07/28/18 05:00 102 19 144/72 (96) 98 07/28/18 04:53 110 21 50 07/28/18 04:00 50 07/28/18 04:00 Mechanical Ventilator 07/28/18 04:00 99.5 107 21 159/68 (98) 99 07/28/18 04:00 108 07/28/18 03:30 108 22 50 07/28/18 03:00 108 21 164/69 (100) 99 07/28/18 02:00 109 23 170/74 (106) 99 07/28/18 01:30 111 22 50 07/28/18 01:00 111 23 171/70 (103) 99 07/28/18 00:34 99.3 07/28/18 00:00 50 07/28/18 00:00 Mechanical Ventilator 07/28/18 00:00 112 07/28/18 00:00 99.8 105 23 174/78 (110) 99 07/27/18 23:16 105 23 50 07/27/18 23:00 105 23 174/78 (110) 99 07/27/18 22:00 99.2 101 19 153/69 (97) 99 07/27/18 21:30 102 27 50 07/27/18 21:00 104 26 161/82 (108) 99 07/27/18 20:00 105 07/27/18 20:00 Mechanical Ventilator 07/27/18 20:00 50 07/27/18 20:00 99.3 104 26 183/88 (119) 99 07/27/18 19:30 104 25 50 07/27/18 19:00 107 22 155/86 (109) 100 07/27/18 18:00 102 24 183/89 (120) 100 07/27/18 17:11 105 26 55 07/27/18 17:00 98.8 103 26 169/77 (107) 100 07/27/18 16:00 104 07/27/18 16:00 103 25 163/81 (108) 100 07/27/18 16:00 Mechanical Ventilator 07/27/18 16:00 50 07/27/18 15:00 103 24 162/86 (111) 100 07/27/18 14:38 105 22 55 07/27/18 14:00 105 24 174/78 (110) 100 07/27/18 13:23 106 23 100 I&O Intake and Output 07/27/18 07/28/18 19:00 07:00 Intake Total 2050 ml 1750 ml Output Total 1250 ml 775 ml Balance 800 ml 975 ml IV Total 2050 ml 1750 ml Output Urine Total 1250 ml 775 ml # Bowel Movements 3 Drains: other Cardiovascular: other - tachy Respiratory: decreased breath sounds Abdomen: distended, decreased bowel sounds Extremities: no cyanosis, other Laboratory Tests Test 07/27/18 13:30 07/27/18 23:10 07/28/18 04:10 Arterial Blood pH 7.405 (7.350-7.450) Arterial Blood Partial Pressure CO2 27.0 mmHg (35.0-45.0) L Arterial Blood Partial Pressure O2 450.0 mmHg (75.0-100.0) H Arterial Blood HCO3 16.5 mmol/L (22.0-26.0) *L Arterial Blood Oxygen Saturation 98.5 % (95-100) Arterial Blood Base Excess -7.3 (-2-2) L Basilio Test Positive White Blood Count 12.4 K/UL (4.8-10.8) H 12.2 K/UL (4.8-10.8) H Red Blood Count 3.31 M/UL (4.70-6.10) L 3.31 M/UL (4.70-6.10) L Hemoglobin 9.3 G/DL (14.2-18.0) #L 9.2 G/DL (14.2-18.0) L Hematocrit 27.3 % (42.0-52.0) #L 27.4 % (42.0-52.0) L Mean Corpuscular Volume 83 FL (80-99) 83 FL (80-99) Mean Corpuscular Hemoglobin 28.1 PG (27.0-31.0) 27.8 PG (27.0-31.0) Mean Corpuscular Hemoglobin Concent 34.1 G/DL (32.0-36.0) 33.5 G/DL (32.0-36.0) Red Cell Distribution Width 18.7 % (11.6-14.8) H 18.4 % (11.6-14.8) H Platelet Count 88 K/UL (150-450) L 92 K/UL (150-450) L Mean Platelet Volume 7.7 FL (6.5-10.1) 6.4 FL (6.5-10.1) L Neutrophils (%) (Auto) % (45.0-75.0) % (45.0-75.0) Lymphocytes (%) (Auto) % (20.0-45.0) % (20.0-45.0) Monocytes (%) (Auto) % (1.0-10.0) % (1.0-10.0) Eosinophils (%) (Auto) % (0.0-3.0) % (0.0-3.0) Basophils (%) (Auto) % (0.0-2.0) % (0.0-2.0) Differential Total Cells Counted 100 100 Neutrophils % (Manual) 90 % (45-75) H 91 % (45-75) H Lymphocytes % (Manual) 7 % (20-45) L 2 % (20-45) L Monocytes % (Manual) 3 % (1-10) 7 % (1-10) Eosinophils % (Manual) 0 % (0-3) 0 % (0-3) Basophils % (Manual) 0 % (0-2) 0 % (0-2) Band Neutrophils 0 % (0-8) 0 % (0-8) Platelet Estimate Decreased L Decreased L Platelet Morphology Normal Normal Anisocytosis 1+ 1+ Prothrombin Time 14.8 SEC (9.30-11.50) H 14.9 SEC (9.30-11.50) H Prothromb Time International Ratio 1.4 (0.9-1.1) H 1.4 (0.9-1.1) H Sodium Level 154 MMOL/L (136-145) H Potassium Level 3.6 MMOL/L (3.5-5.1) Chloride Level 123 MMOL/L (98-107) H Carbon Dioxide Level 20 MMOL/L (21-32) L Anion Gap 11 mmol/L (5-15) Blood Urea Nitrogen 30 mg/dL (7-18) H Creatinine 1.1 MG/DL (0.55-1.30) Estimat Glomerular Filtration Rate > 60 mL/min (>60) Glucose Level 231 MG/DL (74-106) H Calcium Level 7.8 MG/DL (8.5-10.1) L Total Bilirubin 4.4 MG/DL (0.2-1.0) H Direct Bilirubin 2.7 MG/DL (0.0-0.3) H Aspartate Amino Transf (AST/SGOT) 81 U/L (15-37) H Alanine Aminotransferase (ALT/SGPT) 117 U/L (12-78) H Alkaline Phosphatase 78 U/L (46-116) Total Protein 5.5 G/DL (6.4-8.2) L Albumin 2.2 G/DL (3.4-5.0) L Globulin 3.3 g/dL Albumin/Globulin Ratio 0.7 (1.0-2.7) L Plan Problems: (1) Gastrointestinal hemorrhage Assessment & Plan: GI Bleed acute being transfused EGD aborted intubated CXR with 1. Difficult to tell if the endotracheal tube is in the trachea or in the esophagus. Suspect possibly in the esophagus, consider repositioning. Patient is rotated. There is gassy stomach and upper abdominal bowel. 2. Hypoventilatory lungs. Bibasilar lung atelectasis. Urgent bronchoscopy done in ICU. ET tube in place anatomy with tracheomalacia short trachea tube in good positioning edema of airways mucus noted and cleaned s/p multiple transfusions a bit more stable today cont ppi and octre gtt unfortunately not surgical candidate repeat EGD if possible if possible thank you (2) Cirrhosis (3) Severe anemia (4) Hemorrhagic shock (5) Esophageal varices Alvaro Melton July 28, 2018 13:26
[2018-07-28] MEDS: cefTRIAXone 1 GM in D5W 55 ML IVPB SCH (14:18)
--- NOTE | 2018-07-28 14:40 | NUR ---
NURSE NOTES: Oral care given. Turned and repositioned. Kept dry and clean. Blood tinged sputum still present upon oral sxn. VSS.
--- NOTE | 2018-07-28 15:49 | Internal Med Progress Note ---
Subjective Date of Service: July 28, 2018 Physician Name John Young Attending Physician Dontae Macias MD Current Medications Medications (Trade) Dose Ordered Sig/Florentin Route PRN Reason Start Time Stop Time Status Last Admin Dose Admin Acetaminophen (Tylenol) 650 mg Q4H PRN ORAL fever 07/25/18 12:45 08/24/18 12:44 Al Hydroxide/Mg Hydroxide (Mylanta II) 30 ml Q6H PRN ORAL dyspepsia 07/25/18 12:45 08/24/18 12:44 Ceftriaxone Sodium 1 gm/ Dextrose 55 ml @ 110 mls/hr Q24H IVPB 07/26/18 14:00 08/02/18 13:59 07/28/18 14:18 Chlorhexidine Gluconate (Maria Ines-Hex 2%) 1 applic DAILY@2000 TOPIC 07/27/18 20:00 08/26/18 19:59 Dextrose (Dextrose 50%) 25 ml Q30M PRN IV Hypoglycemia 07/28/18 09:30 08/27/18 09:29 Dextrose (Dextrose 50%) 50 ml Q30M PRN IV Hypoglycemia 07/28/18 09:30 08/27/18 09:29 Dextrose/ Electrolytes 1,000 ml @ 100 mls/hr Q10H IV 07/28/18 09:00 08/27/18 08:59 07/28/18 09:00 Diphenhydramine HCl (Benadryl) 25 mg Q6H PRN ORAL Itching/Pruritis 07/25/18 12:45 08/24/18 12:44 Folic Acid 1 mg/ Magnesium Sulfate 2000 mg/ Multivitamins 10 ml/Dextrose 1,014.2 ml @ 125 mls/ hr ONCE IV 07/28/18 12:00 07/28/18 22:30 07/28/18 11:19 Heparin Sodium/ Sodium Chloride (Heparin 1000 units/500ml Premix) 1,000 unit ONCE PRN IV PICC LINE 07/27/18 15:30 07/29/18 18:00 Insulin Aspart (NovoLOG) Q6HR SUBQ 07/28/18 12:00 08/27/18 11:59 07/28/18 11:41 Lidocaine HCl (Xylocaine 1% 30ml) 30 ml ONCE PRN INJ PICC LINE 07/27/18 15:30 07/29/18 18:00 Lorazepam (Ativan 2mg/ml 1ml) 1 mg Q2HR PRN IV For Anxiety 07/28/18 00:00 08/04/18 00:00 07/28/18 04:48 Morphine Sulfate (Morphine Sulfate) 2 mg Q4H PRN IVP severe Pain (Pain Scale 7-10) 07/25/18 12:45 08/01/18 12:44 07/27/18 23:32 Nitroglycerin (Ntg) 0.4 mg Q5M X 3 DOSES PRN SL Prn Chest Pain 07/25/18 12:45 08/24/18 12:44 Octreotide Acetate 500 mcg/ Sodium Chloride 500 ml @ 50 mls/hr Q10H IV 07/25/18 21:30 08/24/18 21:29 07/28/18 11:21 Ondansetron HCl (Zofran) 4 mg Q6H PRN IVP Nausea & Vomiting 07/25/18 12:45 08/24/18 12:44 07/26/18 04:15 Pantoprazole 80 mg/Sodium Chloride 250 ml @ 25 mls/hr Q10H IV 07/25/18 21:30 08/24/18 21:29 07/28/18 11:21 Polyethylene Glycol (Miralax) 17 gm HSPRN PRN ORAL Constipation 07/25/18 12:45 08/24/18 12:44 Temazepam (Restoril) 15 mg HSPRN PRN ORAL Insomnia 07/25/18 12:45 08/01/18 12:44 Allergies: Coded Allergies: No Known Allergies (Unverified , 07/25/18) ROS Limited/Unobtainable: Yes Subjective 68 YO M admitted with upper GI hemorrhage. Intubated and sedated. S/P endoscopy 07/27/18. Cover for Madie Ngo-Dr Macias. ICU Objective Last Vital Signs Date Time Temp Pulse Resp B/P (MAP) Pulse Ox O2 Delivery O2 Flow Rate FiO2 07/28/18 15:00 100 18 150/72 (98) 98 07/28/18 14:49 50 07/28/18 12:00 99.6 07/28/18 12:00 Mechanical Ventilator 07/27/18 08:00 10.0 General Appearance: WD/WN, no apparent distress EENT: PERRL/EOMI, normal ENT inspection Neck: non-tender, normal alignment, supple, normal inspection Cardiovascular: normal peripheral pulses, normal rate, regular rhythm, no gallop/murmur, no JVD Respiratory/Chest: respiratory distress, crackles/rales, rhonchi - bilaterally , expiratory wheezing Abdomen: normal bowel sounds, non tender, soft, no organomegaly, no mass Extremities: normal range of motion, non-tender 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 normal, no motor/sensory deficits Skin: normal pigmentation, warm/dry Laboratory Tests Test 07/27/18 23:10 07/28/18 04:10 White Blood Count 12.4 K/UL (4.8-10.8) H 12.2 K/UL (4.8-10.8) H Red Blood Count 3.31 M/UL (4.70-6.10) L 3.31 M/UL (4.70-6.10) L Hemoglobin 9.3 G/DL (14.2-18.0) #L 9.2 G/DL (14.2-18.0) L Hematocrit 27.3 % (42.0-52.0) #L 27.4 % (42.0-52.0) L Mean Corpuscular Volume 83 FL (80-99) 83 FL (80-99) Mean Corpuscular Hemoglobin 28.1 PG (27.0-31.0) 27.8 PG (27.0-31.0) Mean Corpuscular Hemoglobin Concent 34.1 G/DL (32.0-36.0) 33.5 G/DL (32.0-36.0) Red Cell Distribution Width 18.7 % (11.6-14.8) H 18.4 % (11.6-14.8) H Platelet Count 88 K/UL (150-450) L 92 K/UL (150-450) L Mean Platelet Volume 7.7 FL (6.5-10.1) 6.4 FL (6.5-10.1) L Neutrophils (%) (Auto) % (45.0-75.0) % (45.0-75.0) Lymphocytes (%) (Auto) % (20.0-45.0) % (20.0-45.0) Monocytes (%) (Auto) % (1.0-10.0) % (1.0-10.0) Eosinophils (%) (Auto) % (0.0-3.0) % (0.0-3.0) Basophils (%) (Auto) % (0.0-2.0) % (0.0-2.0) Differential Total Cells Counted 100 100 Neutrophils % (Manual) 90 % (45-75) H 91 % (45-75) H Lymphocytes % (Manual) 7 % (20-45) L 2 % (20-45) L Monocytes % (Manual) 3 % (1-10) 7 % (1-10) Eosinophils % (Manual) 0 % (0-3) 0 % (0-3) Basophils % (Manual) 0 % (0-2) 0 % (0-2) Band Neutrophils 0 % (0-8) 0 % (0-8) Platelet Estimate Decreased L Decreased L Platelet Morphology Normal Normal Anisocytosis 1+ 1+ Prothrombin Time 14.8 SEC (9.30-11.50) H 14.9 SEC (9.30-11.50) H Prothromb Time International Ratio 1.4 (0.9-1.1) H 1.4 (0.9-1.1) H Sodium Level 154 MMOL/L (136-145) H Potassium Level 3.6 MMOL/L (3.5-5.1) Chloride Level 123 MMOL/L (98-107) H Carbon Dioxide Level 20 MMOL/L (21-32) L Anion Gap 11 mmol/L (5-15) Blood Urea Nitrogen 30 mg/dL (7-18) H Creatinine 1.1 MG/DL (0.55-1.30) Estimat Glomerular Filtration Rate > 60 mL/min (>60) Glucose Level 231 MG/DL (74-106) H Calcium Level 7.8 MG/DL (8.5-10.1) L Total Bilirubin 4.4 MG/DL (0.2-1.0) H Direct Bilirubin 2.7 MG/DL (0.0-0.3) H Aspartate Amino Transf (AST/SGOT) 81 U/L (15-37) H Alanine Aminotransferase (ALT/SGPT) 117 U/L (12-78) H Alkaline Phosphatase 78 U/L (46-116) Total Protein 5.5 G/DL (6.4-8.2) L Albumin 2.2 G/DL (3.4-5.0) L Globulin 3.3 g/dL Albumin/Globulin Ratio 0.7 (1.0-2.7) L Intake and Output 07/27/18 07/28/18 19:00 07:00 Intake Total 2050 ml 1825 ml Output Total 1250 ml 775 ml Balance 800 ml 1050 ml IV Total 2050 ml 1825 ml Output Urine Total 1250 ml 775 ml # Bowel Movements 3 Assessment/Plan Assessment/Plan ASSESSMENT: 1. Severe anemia, most likely secondary to acute blood loss-hgb stable for 24 hrs. S/P transfusion 8 units PRBC and 3 units FFP 2. Acute upper GI bleed. 3. Alcoholism. 4. Liver cirrhosis. 5. Morbid obesity. Treatment: 1. Anemia Acute blood loss from GI bleed. S/P transfusion 8 units PRBC and 2 units FFP 2. Upper Gastrointestinal hemorrhage. See GI note. 3. alcoholic liver cirrhosis-see GI note. 4. alcohol dependence 5. Morbid obesity 6. S/P endoscopy=esophageal varices and esoph stricture John Young MD July 28, 2018 15:49
--- NOTE | 2018-07-28 16:37 | NUR ---
NURSE NOTES: ax temp 100.0, cooling measures applied. Turned and repositioned. Oral care given.
--- NOTE | 2018-07-28 18:11 | NUR ---
NURSE NOTES: Ax temp 98.9. Family at bedside. IVF infusing well. Blood sugar 198, 3 units given as per sliding scale.
--- NOTE | 2018-07-28 19:12 | NUR ---
HAND-OFF: Report given to DERECK Peoples using SBAR.
--- NOTE | 2018-07-28 19:13 | NUR ---
NURSE NOTES: Endorsement received from DERECK Cruz. Patient obtunded. No eye opening, no motor response. Unable to determine pupil response. Orally intubated with ET 7.5 23, AC 16 VT 600 PEEP 5 50% FiO2. Sinus rhythm on the monitor. Modi F16 draining to urimeter. [place] colored urine. With Right AC g18, right forearm g 20, left forearm g18. Receiving Sandostatin drip at 50ml/hr, Protonix drip at 25 ml/hr, Banana bag at 125 ml/hr. Head of bed elevated. Bed alarm on, locked and in low position. Call light within reach. On seizure precautions. Family at bedside.
--- NOTE | 2018-07-28 19:15 | NUR ---
RESPIRATORY NOTE: Patient received mechanically ventilated on PB 840 with current ordered vent settings. Patient is orally intubated with a size 7.5 ETT tube and 23cm at the lip line that is secured with an anchor fast. Vent alarms are functional and audible. There is an ambu bag available at the bedside and the vent is connected to a red outlet. Will continue to monitor.
[2018-07-28] MEDS: Dyna-Hex 2% Top Sol 2oz TOPIC SCH (19:35)
--- NOTE | 2018-07-28 19:41 | NUR ---
NURSE NOTES: Banana bag consumed. Resumed D5W + KCl 20Meq at 100 ml/hr
--- NOTE | 2018-07-28 21:00 | NUR ---
NURSE NOTES: Family at bedside, updated of current status. Patient with gag reflex when suctioned.
--- NOTE | 2018-07-28 23:00 | NUR ---
NURSE NOTES: No response to pain. No seizure activity. Bed elevated. Will continue to monitor.
[2018-07-29] VITALS (24 sets, daily range): BP systolic 124–168; BP diastolic 61–98
--- NOTE | 2018-07-29 01:00 | NUR ---
NURSE NOTES: Condition remains the same. Family at bedside.
--- NOTE | 2018-07-29 03:00 | NUR ---
NURSE NOTES: Bed bath, oral care, change of linens done.
--- NOTE | 2018-07-29 04:00 | NUR ---
NURSE NOTES: Called RT Faiban for patient Vent alarming high peak pressures, Bite block needed. RT stated that he "is not going to be intrusive" and place bite block at this time. Ativan given. Will continue to monitor.
[2018-07-29] MEDS: D5W w/KCl 20mEq 1,000 ML IV SCH ×2 (04:10→15:19)
[2018-07-29] MEDS: Octreotide Acetate 500 MCG in Sodium Chloride 499 ML IV SCH ×3 (04:10→19:00)
[2018-07-29] MEDS: LORazepam Inj 2mg/ml 1ml IV PRN (04:10)
[2018-07-29] MEDS: Pantoprazole 80 MG in NS 250 ML IV SCH ×3 (04:11→13:00)
--- NOTE | 2018-07-29 04:52 | NUR ---
HAND-OFF: Report given to DERECK Alcantar for continuity of care.
--- NOTE | 2018-07-29 04:55 | NUR ---
NURSE NOTE: Received from Corinne HARDEN. Patient obtunded. No eye opening, no motor response. Orally intubated with ET 7.5 23, AC 16 VT 600 PEEP 5 FiO2 50%. Sinus rhythm on the monitor. Right AC g18, right forearm g 20, left forearm g18. Receiving Sandostatin drip at 50ml/hr, Protonix drip at 25 ml/hr, D5W w/ 20 meq K @ 100ml/hr. Modi cath draining by gravity. Bed in lowest position, side rails upx3 (padded). Bed alarm on. Family at the bedside. No signs of distress noted. Will continue to monitor.
[2018-07-29 04:59] LABS: HEMATOCRIT 27.6 % (42.0-52.0); HEMOGLOBIN 9.2 G/DL (14.2-18.0); MEAN CORPUSCULAR VOLUME 84 FL (80-99); PLATELET COUNT 94 K/UL (150-450); RED BLOOD COUNT 3.29 M/UL (4.70-6.10); RED CELL DISTRIBUTION WIDTH 19.1 % (11.6-14.8); WHITE BLOOD COUNT 12.6 K/UL (4.8-10.8)
[2018-07-29] MEDS: NovoLOG Insulin Flexpen SUBQ SCH ×3 (05:11→18:17)
[2018-07-29 05:19] LABS: ANION GAP 8 mmol/L (5-15); BLOOD UREA NITROGEN 24 mg/dL (7-18); CALCIUM 7.6 MG/DL (8.5-10.1); CARBON DIOXIDE 23 MMOL/L (21-32); CHLORIDE 122 MMOL/L (98-107); CREATININE 0.8 MG/DL (0.55-1.30); SODIUM 153 MMOL/L (136-145)
--- NOTE | 2018-07-29 07:15 | 48 Hour Post Anesthesia Eval ---
Post Anesthesia Evaluation Procedure: EGD Date of Evaluation: July 29, 2018 Time of Evaluation: 07:14 Blood Pressure Systolic: 153 0: 90 Pulse Rate: 70 Respiratory Rate: 14 Airway: other Nausea: No Vomiting: No Hydration Status: adequate Cardiopulmonary Status: stable Mental Status/LOC: patient returned to baseline Post-Anesthesia Complications: na Follow-up care needed: N/A Ana Dunham CRNA July 29, 2018 07:15
--- NOTE | 2018-07-29 07:35 | NUR ---
HAND-OFF: Report given to Shiloh HARDEN using SBAR.
--- NOTE | 2018-07-29 07:36 | NUR ---
NURSE NOTES: Received pt and [id number] repot from Katharine HARDEN. Pt is obtunded; orally intubated ETT 7.5 at 23cm right lipline, with AC16, VT600, Peep 5.0, FIO2 50% with O2sat at 97% with diminished lung sounds. Dry oral mucosa. cork cutter displays NSR with heart rate fluctuating in the 90's. Peripheral IV access present on right AC #18G, infusing Protonix Drip at 25ml/hour, and right FA #20G, infusing Sandostatin at 50mL/hour, and left FA #20G, infusing D5W with KCL 20meq at 100ml/hour. Currently NPO. Abdomen is round, distended and hard to touch. Modi catheter in place, draining clear/dark clem urine. Edema present in all four extremities, with intact skin, and bounding radial pulses. Bed is locked with three side rails up, alarm on and call light within easy reach. Currently waiting for PICC placement, consent filed in chart. Will continue to monitor pt and follow plan of care per MD orders and protocol.
--- NOTE | 2018-07-29 07:38 | NUR ---
RESPIRATORY NOTE: received pt intubated and on current vent settings. pt intubated with 7.5 placed 23cm at the lip secured via anchor fast. no redness or skin tears visible around facial area. mouth/lips swollen with OPA on pt's chest. no resp distress noted at this time. alarms are set and audible with vent plugged into the red outlet with ambu bag at bedside. will cont to monitor.
--- NOTE | 2018-07-29 09:30 | NUR ---
NURSE NOTES: Oral care given and pt suctioned. Pt was cleaned and repositioned. VS stable. Pt laying with head of bed at 30 degrees. No episodes of seizure activity.
[2018-07-29] MEDS ORDERED: NS 275ml ONE (09:42)
[2018-07-29] MEDS ORDERED: Sterile Water Irrig 1000ml IRRIG ONE (09:42)
[2018-07-29] MEDS ORDERED: Tubing Blood Filter IV ONE (09:42)
[2018-07-29] MEDS ORDERED: D5NS 1000ml IV ONE (09:42)
--- NOTE | 2018-07-29 10:22 | Pulmonolgy Critical Care Note ---
Critical Care - Asmt/Plan Problems: (1) Hemorrhagic shock (2) Gastrointestinal hemorrhage (3) Cirrhosis (4) Severe anemia (5) Esophageal varices Respiratory: monitor respiratory rate, adjust FIO2, CXR Cardiac: continue pressors, continue to monitor HR/BP Renal: F/U I&O, check electrolytes Infectious Disease: check cultures Gastrointestinal: continue feedings/current rate Endocrine: monitor blood sugar Hematologic: monitor H/H, transfuse if hgb<8.5 Neurologic: PRN Morphine, keep patient comfortable Prophylaxis: Protonix Disposition: keep in ICU Time Spent (Minutes): 40 Notes Reviewed: renal Discussed with: nurses, consultants, case management specialistcrop grain or livestock farm manager - Objective Last 24 Hour Vital Signs Date Time Temp Pulse Resp B/P (MAP) Pulse Ox O2 Delivery O2 Flow Rate FiO2 07/29/18 08:48 96 19 50 07/29/18 08:00 96 18 153/77 (102) 100 07/29/18 07:36 96 19 50 07/29/18 07:15 70 14 07/29/18 07:00 96 18 149/75 (99) 100 07/29/18 06:00 95 19 153/73 (99) 100 07/29/18 05:05 95 22 50 07/29/18 05:00 95 19 149/80 (103) 100 07/29/18 04:00 93 07/29/18 04:00 99.3 97 21 151/74 (99) 100 07/29/18 04:00 50 07/29/18 04:00 Mechanical Ventilator 07/29/18 03:03 90 20 50 07/29/18 03:00 95 22 156/76 (102) 100 07/29/18 02:00 90 19 154/73 (100) 100 07/29/18 01:16 90 21 50 07/29/18 01:00 90 19 151/73 (99) 100 07/29/18 00:00 92 07/29/18 00:00 99.3 91 19 150/76 (100) 100 07/29/18 00:00 Mechanical Ventilator 07/28/18 23:04 94 22 50 07/28/18 23:00 91 19 155/77 (103) 100 07/28/18 22:00 91 19 155/76 (102) 100 07/28/18 21:00 92 18 156/76 (102) 100 07/28/18 20:39 95 20 50 07/28/18 20:00 50 07/28/18 20:00 Mechanical Ventilator 07/28/18 20:00 95 07/28/18 20:00 99.0 94 18 152/80 (104) 99 07/28/18 19:10 96 20 50 07/28/18 19:00 96 18 147/87 (107) 99 07/28/18 18:00 97 18 158/74 (102) 99 07/28/18 17:00 99.6 99 21 158/74 (102) 98 07/28/18 16:42 106 22 50 07/28/18 16:00 102 07/28/18 16:00 Mechanical Ventilator 07/28/18 16:00 100.0 102 19 151/75 (100) 98 07/28/18 16:00 50 07/28/18 15:00 100 18 150/72 (98) 98 07/28/18 14:49 107 20 50 07/28/18 14:00 98 20 149/73 (98) 98 07/28/18 13:00 99 19 152/75 (100) 99 07/28/18 12:43 108 20 50 07/28/18 12:00 50 07/28/18 12:00 99.6 94 18 154/74 (100) 98 07/28/18 12:00 96 07/28/18 12:00 Mechanical Ventilator 07/28/18 11:00 94 18 156/72 (100) 98 07/28/18 10:44 104 21 50 Status: awake HEENT: atraumatic Lungs: clear Heart: HR/BP stable Abdomen: soft, non-tender, feeding tube Extremities: edema Accucheck: 140 Critical Care - Subjective ROS Limited/Unobtainable: No Condition: critical EKG Rhythm: Sinus Rhythm FI02: 50 Vent Support Breath Rate: 16 Vent Support Mode: AC Vent Tidal Volume: 600 Sputum Amount: Scant PEEP: 5.0 PIP: 22 I&O: Intake and Output 07/28/18 07/29/18 19:00 07:00 Intake Total 2037.5 ml 2150 ml Output Total 900 ml 850 ml Balance 1137.5 ml 1300 ml IV Total 2037.5 ml 2150 ml Output Urine Total 900 ml 850 ml CXR: nad ET-Tube: 7.5 ET Position: 23 Labs: Laboratory Tests Test 5/6/19 03:35 White Blood Count 12.6 K/UL (4.8-10.8) H Red Blood Count 3.29 M/UL (4.70-6.10) L Hemoglobin 9.2 G/DL (14.2-18.0) L Hematocrit 27.6 % (42.0-52.0) L Mean Corpuscular Volume 84 FL (80-99) Mean Corpuscular Hemoglobin 28.0 PG (27.0-31.0) Mean Corpuscular Hemoglobin Concent 33.4 G/DL (32.0-36.0) Red Cell Distribution Width 19.1 % (11.6-14.8) H Platelet Count 94 K/UL (150-450) L Mean Platelet Volume 7.6 FL (6.5-10.1) Neutrophils (%) (Auto) % (45.0-75.0) Lymphocytes (%) (Auto) % (20.0-45.0) Monocytes (%) (Auto) % (1.0-10.0) Eosinophils (%) (Auto) % (0.0-3.0) Basophils (%) (Auto) % (0.0-2.0) Differential Total Cells Counted 100 Neutrophils % (Manual) 92 % (45-75) H Lymphocytes % (Manual) 2 % (20-45) L Monocytes % (Manual) 6 % (1-10) Eosinophils % (Manual) 0 % (0-3) Basophils % (Manual) 0 % (0-2) Band Neutrophils 0 % (0-8) Platelet Estimate Decreased L Platelet Morphology Normal Hypochromasia 2+ Anisocytosis 2+ Spherocytes 2+ Sodium Level 153 MMOL/L (136-145) H Potassium Level 4.0 MMOL/L (3.5-5.1) Chloride Level 122 MMOL/L (98-107) H Carbon Dioxide Level 23 MMOL/L (21-32) Anion Gap 8 mmol/L (5-15) Blood Urea Nitrogen 24 mg/dL (7-18) H Creatinine 0.8 MG/DL (0.55-1.30) Estimat Glomerular Filtration Rate > 60 mL/min (>60) Glucose Level 156 MG/DL (74-106) H Calcium Level 7.6 MG/DL (8.5-10.1) L Zarrabi,Mirali MD July 29, 2018 10:22
--- NOTE | 2018-07-29 10:55 | GI Progress Note ---
Assessment/Plan Problems: (1) Esophageal stricture ICD Codes: K22.2 - Esophageal obstruction SNOMED: 04377333 (2) Severe anemia ICD Codes: D64.9 - Anemia, unspecified SNOMED: 199584606 (3) Cirrhosis ICD Codes: K74.60 - Unspecified cirrhosis of liver SNOMED: 01054246 (4) Gastrointestinal hemorrhage ICD Codes: K92.2 - Gastrointestinal hemorrhage, unspecified SNOMED: 84944685 (5) Esophageal varices ICD Codes: I85.00 - Esophageal varices without bleeding SNOMED: 92145869 Status: unchanged Status Narrative Discussed with Dr. Barclay. Assessment/Plan s/p EGD x2, may need repeat endoscopy when stable more stable today, plan for extubation cont octreotide and ppi banana bag pulm care prn transfusions follow labs The patient was seen and examined at bedside and all new and available data was reviewed in the patients chart. I agree with the above findings, impression and plan. (Patient seen earlier today. Signature stamp does not reflect patient encounter time.). - Trino Barclay MD Subjective Subjective limited Objective Last 24 Hour Vital Signs Date Time Temp Pulse Resp B/P (MAP) Pulse Ox O2 Delivery O2 Flow Rate FiO2 07/29/18 10:42 77 20 40 07/29/18 08:48 96 19 50 07/29/18 08:00 96 18 153/77 (102) 100 07/29/18 07:36 96 19 50 07/29/18 07:15 70 14 07/29/18 07:00 96 18 149/75 (99) 100 07/29/18 06:00 95 19 153/73 (99) 100 07/29/18 05:05 95 22 50 07/29/18 05:00 95 19 149/80 (103) 100 07/29/18 04:00 93 07/29/18 04:00 99.3 97 21 151/74 (99) 100 07/29/18 04:00 50 07/29/18 04:00 Mechanical Ventilator 07/29/18 03:03 90 20 50 07/29/18 03:00 95 22 156/76 (102) 100 07/29/18 02:00 90 19 154/73 (100) 100 07/29/18 01:16 90 21 50 07/29/18 01:00 90 19 151/73 (99) 100 07/29/18 00:00 92 07/29/18 00:00 99.3 91 19 150/76 (100) 100 07/29/18 00:00 Mechanical Ventilator 07/28/18 23:04 94 22 50 07/28/18 23:00 91 19 155/77 (103) 100 07/28/18 22:00 91 19 155/76 (102) 100 07/28/18 21:00 92 18 156/76 (102) 100 07/28/18 20:39 95 20 50 07/28/18 20:00 50 07/28/18 20:00 Mechanical Ventilator 07/28/18 20:00 95 07/28/18 20:00 99.0 94 18 152/80 (104) 99 07/28/18 19:10 96 20 50 07/28/18 19:00 96 18 147/87 (107) 99 07/28/18 18:00 97 18 158/74 (102) 99 07/28/18 17:00 99.6 99 21 158/74 (102) 98 07/28/18 16:42 106 22 50 07/28/18 16:00 102 07/28/18 16:00 Mechanical Ventilator 07/28/18 16:00 100.0 102 19 151/75 (100) 98 07/28/18 16:00 50 07/28/18 15:00 100 18 150/72 (98) 98 07/28/18 14:49 107 20 50 07/28/18 14:00 98 20 149/73 (98) 98 07/28/18 13:00 99 19 152/75 (100) 99 07/28/18 12:43 108 20 50 07/28/18 12:00 50 07/28/18 12:00 99.6 94 18 154/74 (100) 98 07/28/18 12:00 96 07/28/18 12:00 Mechanical Ventilator 07/28/18 11:00 94 18 156/72 (100) 98 Intake and Output 07/28/18 07/29/18 19:00 07:00 Intake Total 2037.5 ml 2150 ml Output Total 900 ml 850 ml Balance 1137.5 ml 1300 ml IV Total 2037.5 ml 2150 ml Output Urine Total 900 ml 850 ml Laboratory Tests Test 07/29/18 03:35 White Blood Count 12.6 K/UL (4.8-10.8) H Red Blood Count 3.29 M/UL (4.70-6.10) L Hemoglobin 9.2 G/DL (14.2-18.0) L Hematocrit 27.6 % (42.0-52.0) L Mean Corpuscular Volume 84 FL (80-99) Mean Corpuscular Hemoglobin 28.0 PG (27.0-31.0) Mean Corpuscular Hemoglobin Concent 33.4 G/DL (32.0-36.0) Red Cell Distribution Width 19.1 % (11.6-14.8) H Platelet Count 94 K/UL (150-450) L Mean Platelet Volume 7.6 FL (6.5-10.1) Neutrophils (%) (Auto) % (45.0-75.0) Lymphocytes (%) (Auto) % (20.0-45.0) Monocytes (%) (Auto) % (1.0-10.0) Eosinophils (%) (Auto) % (0.0-3.0) Basophils (%) (Auto) % (0.0-2.0) Differential Total Cells Counted 100 Neutrophils % (Manual) 92 % (45-75) H Lymphocytes % (Manual) 2 % (20-45) L Monocytes % (Manual) 6 % (1-10) Eosinophils % (Manual) 0 % (0-3) Basophils % (Manual) 0 % (0-2) Band Neutrophils 0 % (0-8) Platelet Estimate Decreased L Platelet Morphology Normal Hypochromasia 2+ Anisocytosis 2+ Spherocytes 2+ Sodium Level 153 MMOL/L (136-145) H Potassium Level 4.0 MMOL/L (3.5-5.1) Chloride Level 122 MMOL/L (98-107) H Carbon Dioxide Level 23 MMOL/L (21-32) Anion Gap 8 mmol/L (5-15) Blood Urea Nitrogen 24 mg/dL (7-18) H Creatinine 0.8 MG/DL (0.55-1.30) Estimat Glomerular Filtration Rate > 60 mL/min (>60) Glucose Level 156 MG/DL (74-106) H Calcium Level 7.6 MG/DL (8.5-10.1) L Height (Feet): 5 Height (Inches): 8.00 Weight (Pounds): 186 General Appearance: lethargic Cardiovascular: normal rate Respiratory/Chest: normal breath sounds, no respiratory distress, other - intubated Myrtle Georges NP July 29, 2018 10:55
--- NOTE | 2018-07-29 12:12 | NUR ---
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 CIRRHOSIS . VS: BP 153/77, P 96, T 98.6, RR 21, SpO2 100 on VENT AC 16, TV 600, PEEP 5.0, TgB260 WBC 12.6, RBC 3.29, Hgb 9.2, Hct 27.6, Na 153, BUN 24 IS:OCTREOTIDE 500ml IV PANTOPRAZOLE 250ml IV NOVOLOG SUBQ LORAZEPAM 1mg IV D5/ELECTROLYTES x1L IV CEFTRIAXONE 55ml IVPB ICU STATUS
--- NOTE | 2018-07-29 12:40 | NUR ---
NURSE NOTES: Pt continues with obtunded neuro status with no pupil response to penlight; however does 'slightly move' during suctioning. Currently is intubated ETT 7.5 at 23cm right lipline, with AC16, VT600, Peep 5.0, FIO2 40% with O2sat at 100% with diminished lung sounds. Oral care given and pt suctioned, with output of small/white/thick mucus drainage. residential monitor displays NSR with heart rate still fluctuating in the 90's. Pt is on Protonix Drip at 25ml/hour, Sandostatin at 50mL/hour, and D5W with KCL 20meq at 100ml/hour. Currently NPO. Abdomen is round, distended and hard to touch, with hypoactive bowel sounds auscultated at RLQ. Modi catheter continues to drain clear/dark clem urine 50-150ml/hourly. Pitting edema +2 present in all four extremities, with intact skin, and bounding radial pulses. No n/v or BM yet during my shift. No episodes of any seizure activity. Bed is locked with three side rails up, alarm on and call light within easy reach. Currently still waiting for PICC placement, consent filed in chart; spoke with cardiac cath lab radiology technologist; awaiting for the procedure for this afternoon. Will continue to monitor pt and follow plan of care per MD orders and protocol.
--- NOTE | 2018-07-29 13:14 | Surgery Progress Note ---
Surgery Progress Note Subjective Procedure Performed bronchoscopy Additional Comments h/h stable leukocytosis trending down looking more stable today Objective Last 24 Hour Vital Signs Date Time Temp Pulse Resp B/P (MAP) Pulse Ox O2 Delivery O2 Flow Rate FiO2 07/29/18 12:49 93 18 40 07/29/18 12:00 Mechanical Ventilator 07/29/18 12:00 40 07/29/18 11:00 81 19 136/61 (86) 100 07/29/18 10:42 77 20 40 07/29/18 10:00 79 21 124/65 (84) 100 07/29/18 09:00 82 20 134/66 (88) 100 07/29/18 08:48 96 19 50 07/29/18 08:00 98.6 96 18 153/77 (102) 100 07/29/18 08:00 94 07/29/18 08:00 50 07/29/18 08:00 Mechanical Ventilator 07/29/18 07:36 96 19 50 07/29/18 07:15 70 14 07/29/18 07:00 96 18 149/75 (99) 100 07/29/18 06:00 95 19 153/73 (99) 100 07/29/18 05:05 95 22 50 07/29/18 05:00 95 19 149/80 (103) 100 07/29/18 04:00 93 07/29/18 04:00 99.3 97 21 151/74 (99) 100 07/29/18 04:00 50 07/29/18 04:00 Mechanical Ventilator 07/29/18 03:03 90 20 50 07/29/18 03:00 95 22 156/76 (102) 100 07/29/18 02:00 90 19 154/73 (100) 100 07/29/18 01:16 90 21 50 07/29/18 01:00 90 19 151/73 (99) 100 07/29/18 00:00 92 07/29/18 00:00 99.3 91 19 150/76 (100) 100 07/29/18 00:00 Mechanical Ventilator 07/28/18 23:04 94 22 50 07/28/18 23:00 91 19 155/77 (103) 100 07/28/18 22:00 91 19 155/76 (102) 100 07/28/18 21:00 92 18 156/76 (102) 100 07/28/18 20:39 95 20 50 07/28/18 20:00 50 07/28/18 20:00 Mechanical Ventilator 07/28/18 20:00 95 07/28/18 20:00 99.0 94 18 152/80 (104) 99 07/28/18 19:10 96 20 50 07/28/18 19:00 96 18 147/87 (107) 99 07/28/18 18:00 97 18 158/74 (102) 99 07/28/18 17:00 99.6 99 21 158/74 (102) 98 07/28/18 16:42 106 22 50 07/28/18 16:00 102 07/28/18 16:00 Mechanical Ventilator 07/28/18 16:00 100.0 102 19 151/75 (100) 98 07/28/18 16:00 50 07/28/18 15:00 100 18 150/72 (98) 98 07/28/18 14:49 107 20 50 07/28/18 14:00 98 20 149/73 (98) 98 I&O Intake and Output 07/28/18 07/29/18 19:00 07:00 Intake Total 2037.5 ml 2150 ml Output Total 900 ml 850 ml Balance 1137.5 ml 1300 ml IV Total 2037.5 ml 2150 ml Output Urine Total 900 ml 850 ml Cardiovascular: RSR Respiratory: decreased breath sounds Abdomen: soft, distended, decreased bowel sounds Extremities: no cyanosis Laboratory Tests Test 07/29/18 03:35 White Blood Count 12.6 K/UL (4.8-10.8) H Red Blood Count 3.29 M/UL (4.70-6.10) L Hemoglobin 9.2 G/DL (14.2-18.0) L Hematocrit 27.6 % (42.0-52.0) L Mean Corpuscular Volume 84 FL (80-99) Mean Corpuscular Hemoglobin 28.0 PG (27.0-31.0) Mean Corpuscular Hemoglobin Concent 33.4 G/DL (32.0-36.0) Red Cell Distribution Width 19.1 % (11.6-14.8) H Platelet Count 94 K/UL (150-450) L Mean Platelet Volume 7.6 FL (6.5-10.1) Neutrophils (%) (Auto) % (45.0-75.0) Lymphocytes (%) (Auto) % (20.0-45.0) Monocytes (%) (Auto) % (1.0-10.0) Eosinophils (%) (Auto) % (0.0-3.0) Basophils (%) (Auto) % (0.0-2.0) Differential Total Cells Counted 100 Neutrophils % (Manual) 92 % (45-75) H Lymphocytes % (Manual) 2 % (20-45) L Monocytes % (Manual) 6 % (1-10) Eosinophils % (Manual) 0 % (0-3) Basophils % (Manual) 0 % (0-2) Band Neutrophils 0 % (0-8) Platelet Estimate Decreased L Platelet Morphology Normal Hypochromasia 2+ Anisocytosis 2+ Spherocytes 2+ Sodium Level 153 MMOL/L (136-145) H Potassium Level 4.0 MMOL/L (3.5-5.1) Chloride Level 122 MMOL/L (98-107) H Carbon Dioxide Level 23 MMOL/L (21-32) Anion Gap 8 mmol/L (5-15) Blood Urea Nitrogen 24 mg/dL (7-18) H Creatinine 0.8 MG/DL (0.55-1.30) Estimat Glomerular Filtration Rate > 60 mL/min (>60) Glucose Level 156 MG/DL (74-106) H Calcium Level 7.6 MG/DL (8.5-10.1) L Plan Problems: (1) Gastrointestinal hemorrhage Assessment & Plan: GI Bleed acute being transfused EGD aborted intubated CXR with 1. Difficult to tell if the endotracheal tube is in the trachea or in the esophagus. Suspect possibly in the esophagus, consider repositioning. Patient is rotated. There is gassy stomach and upper abdominal bowel. 2. Hypoventilatory lungs. Bibasilar lung atelectasis. Urgent bronchoscopy done in ICU. ET tube in place anatomy with tracheomalacia short trachea tube in good positioning edema of airways mucus noted and cleaned s/p multiple transfusions a bit more stable today cont ppi and octre gtt unfortunately not surgical candidate repeat EGD if possible if possible thank you (2) Cirrhosis (3) Severe anemia (4) Hemorrhagic shock (5) Esophageal varices Alvaro Melton July 29, 2018 13:14
--- NOTE | 2018-07-29 13:40 | NUR ---
NURSE NOTES: Order received from Dr Brothers to "attempt extubation once pt is awake", (currently obtunded). Pt was administered Ativan 1mg at 0410 by power line installer RN. Pt is currently still obtunded, pupil does not respond to penlight or sternal rub; however pt does trigger the vent, and minimal movement during oral suctioning. Dr Brothesr made aware of Ammonia level of 329 from 07/27/18 blooddraw; MD also notified of unsuccessful attempts of NG and OG tube placement by previous shift nurses per power line installer RN report. No new orders yet at this time.
--- NOTE | 2018-07-29 14:50 | NUR ---
NURSE NOTES: Int/ct scan technician at bedside. PICC placed on left UA. Pt tolerated procedure well. Awaiting for "ok to use" from radiologist.
[2018-07-29] MEDS: cefTRIAXone 1 GM in D5W 55 ML IVPB SCH (15:18)
--- NOTE | 2018-07-29 15:18 | Diagnostic Imaging Report ---
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 The left upper extremity was prepped with alcohol. All elements of maximal sterile barrier technique were followed including usage of a cap, mask, sterile gown, sterile gloves, hand hygiene and a large sterile sheet. Sonographic evaluation of the upper extremity was performed demonstrating a patent and compressible basilic vein. Access was obtained under real-time ultrasound guidance (with utilization of sterile gel and sterile probe cover) and digital image was saved and archived. An .018 wire was introduced. Needle exchanged for a 5 Mongolian peel-away sheath. Measurements were obtained. A 5 Mongolian dual-lumen Power PICC line catheter was cut to 40 cm and introduced over the wire. Peel-away sheath and wire were removed.Catheter was secured to the skin using 2-0 Prolene suture. Both ports aspirate and flush easily. Post procedure chest x-ray demonstrates good position of the PICC line catheter within the SVC. Impression: Successful placement of an upper extremity PICC line catheter
--- NOTE | 2018-07-29 16:56 | NUR ---
Social Service Note SW spoke with [facility] regarding benefits. Due to patient's previous deportation patient will not qualify for full scope [facility] benefits through Proc. [facility] will explore restricted medi-[facility] with prison care coverage however patient may require a 30 days hospital stay. [facility] will work with assign county worker once assigned and level of care reassessed. Will continue to monitor and follow up.
--- NOTE | 2018-07-29 17:30 | NUR ---
NURSE NOTES: RT at bedside, weaning trial attempted for 10 minutes while pt is still obtunded, does not respond to touch or voice, even while family asked pt in Turkmen to "squeeze hand" with no response. While on pressure support of 10, pt's resp rate was at 30 and volume of 500 and O2sat at 98%. Family at bedside, pt asked to "squeeze nurse's hand, however no response. After 10min, pt was placed back on previous vent settings, AC16, VT600, Peep5.0, FI02 40%, with O2sat of 99%.
--- NOTE | 2018-07-29 19:20 | NUR ---
HAND-OFF: Report given to Jhonny HARDEN. Endorsed plan of care; pt currently in stable condition.
--- NOTE | 2018-07-29 19:26 | Internal Med Progress Note ---
Subjective Date of Service: July 29, 2018 Physician Name John Young Attending Physician Dontae Macias MD Current Medications Medications (Trade) Dose Ordered Sig/Florentin Route PRN Reason Start Time Stop Time Status Last Admin Dose Admin Acetaminophen (Tylenol) 650 mg Q4H PRN ORAL fever 07/25/18 12:45 08/24/18 12:44 Al Hydroxide/Mg Hydroxide (Mylanta II) 30 ml Q6H PRN ORAL dyspepsia 07/25/18 12:45 08/24/18 12:44 Ceftriaxone Sodium 1 gm/ Dextrose 55 ml @ 110 mls/hr Q24H IVPB 07/26/18 14:00 08/02/18 13:59 07/29/18 15:18 Chlorhexidine Gluconate (Maria Ines-Hex 2%) 1 applic DAILY@2000 TOPIC 07/27/18 20:00 08/26/18 19:59 Dextrose (Dextrose 50%) 25 ml Q30M PRN IV Hypoglycemia 07/28/18 09:30 08/27/18 09:29 Dextrose (Dextrose 50%) 50 ml Q30M PRN IV Hypoglycemia 07/28/18 09:30 08/27/18 09:29 Dextrose/ Electrolytes 1,000 ml @ 100 mls/hr Q10H IV 07/28/18 09:00 08/27/18 08:59 07/29/18 15:19 Diphenhydramine HCl (Benadryl) 25 mg Q6H PRN ORAL Itching/Pruritis 07/25/18 12:45 08/24/18 12:44 Insulin Aspart (NovoLOG) Q6HR SUBQ 07/28/18 12:00 08/27/18 11:59 07/29/18 18:17 Lorazepam (Ativan 2mg/ml 1ml) 1 mg Q2HR PRN IV For Anxiety 07/28/18 00:00 08/04/18 00:00 07/29/18 04:10 Morphine Sulfate (Morphine Sulfate) 2 mg Q4H PRN IVP severe Pain (Pain Scale 7-10) 07/25/18 12:45 08/01/18 12:44 07/27/18 23:32 Nitroglycerin (Ntg) 0.4 mg Q5M X 3 DOSES PRN SL Prn Chest Pain 07/25/18 12:45 08/24/18 12:44 Octreotide Acetate 500 mcg/ Sodium Chloride 500 ml @ 50 mls/hr Q10H IV 07/25/18 21:30 08/24/18 21:29 07/29/18 08:32 Ondansetron HCl (Zofran) 4 mg Q6H PRN IVP Nausea & Vomiting 07/25/18 12:45 08/24/18 12:44 07/26/18 04:15 Pantoprazole 80 mg/Sodium Chloride 250 ml @ 25 mls/hr Q10H IV 07/25/18 21:30 08/24/18 21:29 07/29/18 13:00 Polyethylene Glycol (Miralax) 17 gm HSPRN PRN ORAL Constipation 07/25/18 12:45 08/24/18 12:44 Temazepam (Restoril) 15 mg HSPRN PRN ORAL Insomnia 07/25/18 12:45 08/01/18 12:44 Allergies: Coded Allergies: No Known Allergies (Unverified , 07/25/18) ROS Limited/Unobtainable: Yes Subjective 68 YO M admitted with upper GI hemorrhage. Intubated and sedated. S/P endoscopy 07/27/18. Cover for Int Med-Dr Macias. ICU Objective Last Vital Signs Date Time Temp Pulse Resp B/P (MAP) Pulse Ox O2 Delivery O2 Flow Rate FiO2 07/29/18 19:00 108 27 151/81 (104) 98 07/29/18 18:51 40 40 07/29/18 16:00 Mechanical Ventilator 07/29/18 08:00 98.6 07/27/18 08:00 10.0 Laboratory Tests Test 07/29/18 03:35 White Blood Count 12.6 K/UL (4.8-10.8) H Red Blood Count 3.29 M/UL (4.70-6.10) L Hemoglobin 9.2 G/DL (14.2-18.0) L Hematocrit 27.6 % (42.0-52.0) L Mean Corpuscular Volume 84 FL (80-99) Mean Corpuscular Hemoglobin 28.0 PG (27.0-31.0) Mean Corpuscular Hemoglobin Concent 33.4 G/DL (32.0-36.0) Red Cell Distribution Width 19.1 % (11.6-14.8) H Platelet Count 94 K/UL (150-450) L Mean Platelet Volume 7.6 FL (6.5-10.1) Neutrophils (%) (Auto) % (45.0-75.0) Lymphocytes (%) (Auto) % (20.0-45.0) Monocytes (%) (Auto) % (1.0-10.0) Eosinophils (%) (Auto) % (0.0-3.0) Basophils (%) (Auto) % (0.0-2.0) Differential Total Cells Counted 100 Neutrophils % (Manual) 92 % (45-75) H Lymphocytes % (Manual) 2 % (20-45) L Monocytes % (Manual) 6 % (1-10) Eosinophils % (Manual) 0 % (0-3) Basophils % (Manual) 0 % (0-2) Band Neutrophils 0 % (0-8) Platelet Estimate Decreased L Platelet Morphology Normal Hypochromasia 2+ Anisocytosis 2+ Spherocytes 2+ Sodium Level 153 MMOL/L (136-145) H Potassium Level 4.0 MMOL/L (3.5-5.1) Chloride Level 122 MMOL/L (98-107) H Carbon Dioxide Level 23 MMOL/L (21-32) Anion Gap 8 mmol/L (5-15) Blood Urea Nitrogen 24 mg/dL (7-18) H Creatinine 0.8 MG/DL (0.55-1.30) Estimat Glomerular Filtration Rate > 60 mL/min (>60) Glucose Level 156 MG/DL (74-106) H Calcium Level 7.6 MG/DL (8.5-10.1) L Intake and Output 07/28/18 07/29/18 19:00 07:00 Intake Total 2037.5 ml 2150 ml Output Total 900 ml 850 ml Balance 1137.5 ml 1300 ml IV Total 2037.5 ml 2150 ml Output Urine Total 900 ml 850 ml Assessment/Plan Assessment/Plan ASSESSMENT: 1. Severe anemia, most likely secondary to acute blood loss-hgb stable for 24 hrs. S/P transfusion 8 units PRBC and 3 units FFP 2. Acute upper GI bleed. 3. Alcoholism. 4. Liver cirrhosis. 5. Morbid obesity. Treatment: 1. Anemia Acute blood loss from GI bleed. S/P transfusion 8 units PRBC and 2 units FFP 2. Upper Gastrointestinal hemorrhage. See GI note. 3. alcoholic liver cirrhosis-see GI note. 4. alcohol dependence 5. Morbid obesity 6. S/P endoscopy=esophageal varices and esoph stricture John Young MD July 29, 2018 19:26
--- NOTE | 2018-07-29 19:30 | NUR ---
NURSE NOTES: Recvd.on a vent.orally intubated.See settings.Lungs diminished BS at bases.Few scatt.rh.Sat.96-98%.Suctioned tk.mod.beige hutchison color sec.Mostly drools.NS Lavaged.Anasacra.Flaccid upper and lower ext.Pupils 2mm,sluggishly reactive to light accomodation.Pos.gag reflex.Pos.chg.Sandostatin and Hans.drip inf.No visible active bleeding noted.F/cath patent diuresis suff.
[2018-07-29] MEDS: Dyna-Hex 2% Top Sol 2oz TOPIC SCH (19:57)
--- NOTE | 2018-07-29 22:00 | NUR ---
NURSE NOTES: HS Care rendered.Pos.chg.Neuro status same.No SZ.Act.noted.Suctioned.NPO.Cont.IV Thera.Due meds admin.Family at BS.
[2018-07-30] VITALS (25 sets, daily range): BP systolic 130–157; BP diastolic 63–83
--- NOTE | 2018-07-30 00:10 | NUR ---
NURSE NOTES: Pos. chg.Suctioned.Neuro Status same.See V/S.Scope Rhythm same.Cont.Plan of Care.
--- NOTE | 2018-07-30 02:00 | NUR ---
NURSE NOTES: Repositioned,Kept clean and dry.Suctioned Pos.Gag reflex.Sat.97%.See V/S.Scope Rhythm same.
[2018-07-30] MEDS: D5W w/KCl 20mEq 1,000 ML IV SCH ×2 (02:24→10:22)
[2018-07-30] MEDS: NovoLOG Insulin Flexpen SUBQ SCH ×3 (02:29→12:17)
--- NOTE | 2018-07-30 04:20 | NUR ---
NURSE NOTES: Pos.chg q2hrs.philip Gaffney chg.VSS.Scope Rhythm same.No SZ.activity observed.Neuro Status same.Suctioned.Calvin.Vent settings.Sat.96-98%.
[2018-07-30] MEDS: Pantoprazole 80 MG in NS 250 ML IV SCH (04:52)
[2018-07-30] MEDS: Octreotide Acetate 500 MCG in Sodium Chloride 499 ML IV SCH (04:52)
[2018-07-30 05:34] LABS: HEMATOCRIT 25.5 % (42.0-52.0); HEMOGLOBIN 8.7 G/DL (14.2-18.0); MEAN CORPUSCULAR VOLUME 84 FL (80-99); PLATELET COUNT 88 K/UL (150-450); RED BLOOD COUNT 3.05 M/UL (4.70-6.10); RED CELL DISTRIBUTION WIDTH 19.5 % (11.6-14.8); WHITE BLOOD COUNT 9.5 K/UL (4.8-10.8)
--- NOTE | 2018-07-30 05:53 | NUR ---
Pt.remains orally intubated with a size 7.5ett secured at 23cm linnea with opa in place. Settings AC16/ VT600/PEEP 5/ FiO2.40, B/S bilateral have been rhonchi suctioned for small to moderate amount of thick yellow with blood tinge secretions. All vent settings and alarms have been checked. Will wean in am as tolerated.
[2018-07-30 06:06] LABS: ALANINE AMINOTRANSFERASE 142 U/L (12-78); ALBUMIN 2.1 G/DL (3.4-5.0); ALBUMIN/GLOBULIN RATIO 0.7 (1.0-2.7); ALKALINE PHOSPHATASE 98 U/L (46-116); ANION GAP 10 mmol/L (5-15); ASPARTATE AMINO TRANSFERASE 93 U/L (15-37); BILIRUBIN,TOTAL 6.9 MG/DL (0.2-1.0); BLOOD UREA NITROGEN 26 mg/dL (7-18); CALCIUM 7.4 MG/DL (8.5-10.1); CARBON DIOXIDE 21 MMOL/L (21-32); CHLORIDE 120 MMOL/L (98-107); PHOSPHORUS 1.7 MG/DL (2.5-4.9); POTASSIUM 3.9 MMOL/L (3.5-5.1); SODIUM 151 MMOL/L (136-145)
[2018-07-30 06:07] LABS: BILIRUBIN,DIRECT 4.4 MG/DL (0.0-0.3)
[2018-07-30 06:27] LABS: INR 1.5 (0.9-1.1)
--- NOTE | 2018-07-30 07:00 | NUR ---
Received Patient on Vent settings ACVC RR 16, VT 600, FIO2 40%, PEEP +5. Intubated with a 7.5 ETT with a lip line at 23cm, secured by anchorfast. Bilateral diminished breath sounds heard throughout lung ferris. Suction small amount of thick than secretions. Alarms are on and audible. Vent plugged into red outlet. Will continue to closely monitor throughout the day.
--- NOTE | 2018-07-30 07:17 | NUR ---
HAND-OFF: Report given to DERECK WILSON.
--- NOTE | 2018-07-30 07:18 | NUR ---
NURSE NOTES: Received pt and change of shift report from Jhonny HARDEN. Pt is obtunded and orally intubated. ETT 7.5 at 23cm right lipline with vent settings of AC16 VT600, Peep 5.0, FIO2 40% with O2sat of 95%. hospital monitor displays ST with heart rate fluctuating in the lower 100's to 110. Bilateral +2 edema on extremities with bounding pulses present. Skin is intact. Double lumen PICC present on CHRIS, infusing Sandostatin drip at 50ml/hour, and Protonix drip at 25ml/hour y-sited with D5W [id number] at 100ml/hour. Abdomen is large, round/distended and hard to touch with hypoactive bowel sounds on quadrants. Modi catheter in place, draining mildly cloudy/dark clem urine. Bed is locked with three side rails up and call light within reach. Will continue to monitor pt and follow plan of care per MD orders and protocol.
--- NOTE | 2018-07-30 08:36 | NUR ---
Weaning protocol started. Patient remained on PS +10 PEEP +0 fio2 40% for 10 minutes. Failed after 10 minutes RR>35 NIF -19.
--- NOTE | 2018-07-30 08:45 | NUR ---
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 RESPIRATORY FAILURE VS: BP 152/78, P 109, T 101.0, RR 30, SpO2 96 RBC 3.05, Hgb 8.7, Hct 25.5, Na 151, BUN 26 IS:MORPHINE SULFATE 5mg EXTUBATED 07/30 AND PLACED ON COMFORT CARE MED/SURG STATUS
--- NOTE | 2018-07-30 09:30 | NUR ---
NURSE NOTES: Oral care provided and pt suctioned. Pt cleaned and repositioned. Family now at bedside. VS stable.
--- NOTE | 2018-07-30 10:39 | GI Progress Note ---
Assessment/Plan Problems: (1) Esophageal stricture ICD Codes: K22.2 - Esophageal obstruction SNOMED: 85657562 (2) Severe anemia ICD Codes: D64.9 - Anemia, unspecified SNOMED: 101732249 (3) Cirrhosis ICD Codes: K74.60 - Unspecified cirrhosis of liver SNOMED: 04480193 (4) Gastrointestinal hemorrhage ICD Codes: K92.2 - Gastrointestinal hemorrhage, unspecified SNOMED: 11745700 (5) Esophageal varices ICD Codes: I85.00 - Esophageal varices without bleeding SNOMED: 46996413 Status: stable Status Narrative Discussed with Dr. Barclay. Assessment/Plan s/p EGD x2 esophageal stricture failed weaning x2 unable to place OGT/NGT cont octreotide and ppi lactulose NC banana bag pulm care prn transfusions follow labs The patient was seen and examined at bedside and all new and available data was reviewed in the patients chart. I agree with the above findings, impression and plan. (Patient seen earlier today. Signature stamp does not reflect patient encounter time.). - Trino Barclay MD Subjective Subjective limited Objective Last 24 Hour Vital Signs Date Time Temp Pulse Resp B/P (MAP) Pulse Ox O2 Delivery O2 Flow Rate FiO2 07/30/18 08:47 96 07/30/18 08:46 104 36 40 07/30/18 08:36 104 37 40 07/30/18 08:00 40 07/30/18 07:00 102 28 135/66 (89) 97 07/30/18 06:56 103 33 40 07/30/18 06:00 102 30 149/63 (91) 97 07/30/18 05:20 100 29 40 40 07/30/18 05:00 101 29 150/63 (92) 97 07/30/18 04:00 101 07/30/18 04:00 Mechanical Ventilator 07/30/18 04:00 98.9 101 30 151/72 (98) 97 07/30/18 04:00 40 07/30/18 03:28 103 28 40 40 07/30/18 03:00 103 30 144/77 (99) 97 07/30/18 02:00 104 23 148/79 (102) 97 07/30/18 01:28 105 29 40 40 07/30/18 01:00 103 28 157/73 (101) 98 07/30/18 00:00 107 07/30/18 00:00 98.7 107 30 130/77 (94) 97 07/30/18 00:00 Mechanical Ventilator 07/30/18 00:00 40 07/29/18 23:08 110 31 40 40 07/29/18 23:00 110 31 150/87 (108) 97 07/29/18 22:00 108 28 132/81 (98) 97 07/29/18 21:11 108 28 40 40 07/29/18 21:00 109 27 152/83 (106) 97 07/29/18 20:00 107 07/29/18 20:00 Mechanical Ventilator 07/29/18 20:00 107 23 150/81 (104) 98 07/29/18 20:00 40 07/29/18 19:00 108 27 151/81 (104) 98 07/29/18 18:51 106 26 40 40 07/29/18 18:00 108 26 159/98 (118) 98 07/29/18 17:23 107 21 40 07/29/18 17:00 108 23 150/91 (110) 98 07/29/18 16:00 40 07/29/18 16:00 107 22 137/86 (103) 98 07/29/18 16:00 Mechanical Ventilator 07/29/18 16:00 107 07/29/18 15:03 107 21 40 07/29/18 15:00 107 20 168/94 (118) 98 07/29/18 14:00 103 20 161/83 (109) 99 07/29/18 13:00 100 20 161/75 (103) 99 07/29/18 12:49 93 18 40 07/29/18 12:00 Mechanical Ventilator 07/29/18 12:00 40 07/29/18 12:00 80 07/29/18 12:00 83 20 141/67 (91) 100 07/29/18 11:00 81 19 136/61 (86) 100 07/29/18 10:42 77 20 40 Intake and Output 07/29/18 07/30/18 19:00 07:00 Intake Total 1830 ml 2050 ml Output Total 970 ml 720 ml Balance 860 ml 1330 ml IV Total 1830 ml 2050 ml Output Urine Total 970 ml 720 ml # Bowel Movements 1 Laboratory Tests Test 07/30/18 05:00 White Blood Count 9.5 K/UL (4.8-10.8) Red Blood Count 3.05 M/UL (4.70-6.10) L Hemoglobin 8.7 G/DL (14.2-18.0) L Hematocrit 25.5 % (42.0-52.0) L Mean Corpuscular Volume 84 FL (80-99) Mean Corpuscular Hemoglobin 28.5 PG (27.0-31.0) Mean Corpuscular Hemoglobin Concent 34.0 G/DL (32.0-36.0) Red Cell Distribution Width 19.5 % (11.6-14.8) H Platelet Count 88 K/UL (150-450) L Mean Platelet Volume 7.6 FL (6.5-10.1) Neutrophils (%) (Auto) % (45.0-75.0) Lymphocytes (%) (Auto) % (20.0-45.0) Monocytes (%) (Auto) % (1.0-10.0) Eosinophils (%) (Auto) % (0.0-3.0) Basophils (%) (Auto) % (0.0-2.0) Prothrombin Time 15.7 SEC (9.30-11.50) H Prothromb Time International Ratio 1.5 (0.9-1.1) H Activated Partial Thromboplast Time 29 SEC (23-33) Sodium Level 151 MMOL/L (136-145) H Potassium Level 3.9 MMOL/L (3.5-5.1) Chloride Level 120 MMOL/L (98-107) H Carbon Dioxide Level 21 MMOL/L (21-32) Anion Gap 10 mmol/L (5-15) Blood Urea Nitrogen 26 mg/dL (7-18) H Creatinine 1.0 MG/DL (0.55-1.30) Estimat Glomerular Filtration Rate > 60 mL/min (>60) Glucose Level 131 MG/DL (74-106) H Calcium Level 7.4 MG/DL (8.5-10.1) L Phosphorus Level 1.7 MG/DL (2.5-4.9) L Magnesium Level 1.6 MG/DL (1.8-2.4) L Total Bilirubin 6.9 MG/DL (0.2-1.0) H Direct Bilirubin 4.4 MG/DL (0.0-0.3) H Aspartate Amino Transf (AST/SGOT) 93 U/L (15-37) H Alanine Aminotransferase (ALT/SGPT) 142 U/L (12-78) H Alkaline Phosphatase 98 U/L (46-116) Ammonia 115 umol/L (11-32) H Total Protein 5.1 G/DL (6.4-8.2) L Albumin 2.1 G/DL (3.4-5.0) L Globulin 3.0 g/dL Albumin/Globulin Ratio 0.7 (1.0-2.7) L Height (Feet): 5 Height (Inches): 8.00 Weight (Pounds): 188 General Appearance: alert Cardiovascular: normal rate Respiratory/Chest: other - mechical vent Abdominal Exam: soft Myrtle Georges NP July 30, 2018 10:38
--- NOTE | 2018-07-30 10:48 | Pulmonolgy Critical Care Note ---
Critical Care - Asmt/Plan Problems: (1) Hemorrhagic shock (2) Gastrointestinal hemorrhage (3) Cirrhosis (4) Severe anemia (5) Esophageal varices (6) Acute encephalopathy (7) Acute respiratory failure Respiratory: monitor respiratory rate, adjust FIO2, CXR Cardiac: continue to monitor HR/BP Renal: F/U I&O, keep IV fluid Infectious Disease: check cultures Gastrointestinal: continue feedings/current rate Endocrine: monitor blood sugar Hematologic: monitor H/H, transfuse if hgb<8.5 Neurologic: PRN Ativan, keep patient comfortable Affect: PRN ativan Prophylaxis: Protonix Disposition: keep in ICU Notes Reviewed: cardio, renal Discussed with: nurses, consultants, top case assemblermarketing 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 manager - Objective Last 24 Hour Vital Signs Date Time Temp Pulse Resp B/P (MAP) Pulse Ox O2 Delivery O2 Flow Rate FiO2 07/30/18 08:47 96 07/30/18 08:46 104 36 40 07/30/18 08:36 104 37 40 07/30/18 08:00 40 07/30/18 07:00 102 28 135/66 (89) 97 07/30/18 06:56 103 33 40 07/30/18 06:00 102 30 149/63 (91) 97 07/30/18 05:20 100 29 40 40 07/30/18 05:00 101 29 150/63 (92) 97 07/30/18 04:00 101 07/30/18 04:00 Mechanical Ventilator 07/30/18 04:00 98.9 101 30 151/72 (98) 97 07/30/18 04:00 40 07/30/18 03:28 103 28 40 40 07/30/18 03:00 103 30 144/77 (99) 97 07/30/18 02:00 104 23 148/79 (102) 97 07/30/18 01:28 105 29 40 40 07/30/18 01:00 103 28 157/73 (101) 98 07/30/18 00:00 107 07/30/18 00:00 98.7 107 30 130/77 (94) 97 07/30/18 00:00 Mechanical Ventilator 07/30/18 00:00 40 07/29/18 23:08 110 31 40 40 07/29/18 23:00 110 31 150/87 (108) 97 07/29/18 22:00 108 28 132/81 (98) 97 07/29/18 21:11 108 28 40 40 07/29/18 21:00 109 27 152/83 (106) 97 07/29/18 20:00 107 07/29/18 20:00 Mechanical Ventilator 07/29/18 20:00 107 23 150/81 (104) 98 07/29/18 20:00 40 07/29/18 19:00 108 27 151/81 (104) 98 07/29/18 18:51 106 26 40 40 07/29/18 18:00 108 26 159/98 (118) 98 07/29/18 17:23 107 21 40 07/29/18 17:00 108 23 150/91 (110) 98 07/29/18 16:00 40 07/29/18 16:00 107 22 137/86 (103) 98 07/29/18 16:00 Mechanical Ventilator 07/29/18 16:00 107 07/29/18 15:03 107 21 40 07/29/18 15:00 107 20 168/94 (118) 98 07/29/18 14:00 103 20 161/83 (109) 99 07/29/18 13:00 100 20 161/75 (103) 99 07/29/18 12:49 93 18 40 07/29/18 12:00 Mechanical Ventilator 07/29/18 12:00 40 07/29/18 12:00 80 07/29/18 12:00 83 20 141/67 (91) 100 07/29/18 11:00 81 19 136/61 (86) 100 Status: obtunded Condition: critical, grave HEENT: atraumatic Lungs: clear Heart: HR/BP stable Abdomen: soft, non-tender, feeding tube Extremities: no C/C/E, edema Accucheck: 126 Critical Care - Subjective ROS Limited/Unobtainable: Yes Interval Events: still comatose. Condition: critical EKG Rhythm: Sinus Rhythm FI02: 40 Vent Support Breath Rate: 16 Vent Support Mode: AC Vent Tidal Volume: 600 Sputum Amount: Small PEEP: 5.0 PIP: 33 I&O: Intake and Output 07/29/18 07/30/18 19:00 07:00 Intake Total 1830 ml 2050 ml Output Total 970 ml 720 ml Balance 860 ml 1330 ml IV Total 1830 ml 2050 ml Output Urine Total 970 ml 720 ml # Bowel Movements 1 CXR: NITIN ET-Tube: 7.5 ET Position: 23 Labs: Laboratory Tests Test 07/30/18 05:00 White Blood Count 9.5 K/UL (4.8-10.8) Red Blood Count 3.05 M/UL (4.70-6.10) L Hemoglobin 8.7 G/DL (14.2-18.0) L Hematocrit 25.5 % (42.0-52.0) L Mean Corpuscular Volume 84 FL (80-99) Mean Corpuscular Hemoglobin 28.5 PG (27.0-31.0) Mean Corpuscular Hemoglobin Concent 34.0 G/DL (32.0-36.0) Red Cell Distribution Width 19.5 % (11.6-14.8) H Platelet Count 88 K/UL (150-450) L Mean Platelet Volume 7.6 FL (6.5-10.1) Neutrophils (%) (Auto) % (45.0-75.0) Lymphocytes (%) (Auto) % (20.0-45.0) Monocytes (%) (Auto) % (1.0-10.0) Eosinophils (%) (Auto) % (0.0-3.0) Basophils (%) (Auto) % (0.0-2.0) Prothrombin Time 15.7 SEC (9.30-11.50) H Prothromb Time International Ratio 1.5 (0.9-1.1) H Activated Partial Thromboplast Time 29 SEC (23-33) Sodium Level 151 MMOL/L (136-145) H Potassium Level 3.9 MMOL/L (3.5-5.1) Chloride Level 120 MMOL/L (98-107) H Carbon Dioxide Level 21 MMOL/L (21-32) Anion Gap 10 mmol/L (5-15) Blood Urea Nitrogen 26 mg/dL (7-18) H Creatinine 1.0 MG/DL (0.55-1.30) Estimat Glomerular Filtration Rate > 60 mL/min (>60) Glucose Level 131 MG/DL (74-106) H Calcium Level 7.4 MG/DL (8.5-10.1) L Phosphorus Level 1.7 MG/DL (2.5-4.9) L Magnesium Level 1.6 MG/DL (1.8-2.4) L Total Bilirubin 6.9 MG/DL (0.2-1.0) H Direct Bilirubin 4.4 MG/DL (0.0-0.3) H Aspartate Amino Transf (AST/SGOT) 93 U/L (15-37) H Alanine Aminotransferase (ALT/SGPT) 142 U/L (12-78) H Alkaline Phosphatase 98 U/L (46-116) Ammonia 115 umol/L (11-32) H Total Protein 5.1 G/DL (6.4-8.2) L Albumin 2.1 G/DL (3.4-5.0) L Globulin 3.0 g/dL Albumin/Globulin Ratio 0.7 (1.0-2.7) L Chaim Brothers MD July 30, 2018 10:48
--- NOTE | 2018-07-30 11:41 | Surgery Progress Note ---
Surgery Progress Note Subjective Procedure Performed bronchoscopy Additional Comments exam unchanged. labs noted. h/h mild trend down but stable. lft's elevated. Objective Last 24 Hour Vital Signs Date Time Temp Pulse Resp B/P (MAP) Pulse Ox O2 Delivery O2 Flow Rate FiO2 07/30/18 11:00 107 35 152/74 (100) 96 07/30/18 10:44 105 33 40 07/30/18 10:00 107 35 149/64 (92) 95 07/30/18 09:00 104 35 148/72 (97) 96 07/30/18 08:47 96 07/30/18 08:46 104 36 40 07/30/18 08:36 104 37 40 07/30/18 08:00 Mechanical Ventilator 07/30/18 08:00 103 07/30/18 08:00 40 07/30/18 08:00 98.9 103 32 146/70 (95) 95 07/30/18 07:00 102 28 135/66 (89) 97 07/30/18 06:56 103 33 40 07/30/18 06:00 102 30 149/63 (91) 97 07/30/18 05:20 100 29 40 40 07/30/18 05:00 101 29 150/63 (92) 97 07/30/18 04:00 101 07/30/18 04:00 Mechanical Ventilator 07/30/18 04:00 98.9 101 30 151/72 (98) 97 07/30/18 04:00 40 07/30/18 03:28 103 28 40 40 07/30/18 03:00 103 30 144/77 (99) 97 07/30/18 02:00 104 23 148/79 (102) 97 07/30/18 01:28 105 29 40 40 07/30/18 01:00 103 28 157/73 (101) 98 07/30/18 00:00 107 07/30/18 00:00 98.7 107 30 130/77 (94) 97 07/30/18 00:00 Mechanical Ventilator 07/30/18 00:00 40 07/29/18 23:08 110 31 40 40 07/29/18 23:00 110 31 150/87 (108) 97 07/29/18 22:00 108 28 132/81 (98) 97 07/29/18 21:11 108 28 40 40 07/29/18 21:00 109 27 152/83 (106) 97 07/29/18 20:00 107 07/29/18 20:00 Mechanical Ventilator 07/29/18 20:00 107 23 150/81 (104) 98 07/29/18 20:00 40 07/29/18 19:00 108 27 151/81 (104) 98 07/29/18 18:51 106 26 40 40 07/29/18 18:00 108 26 159/98 (118) 98 07/29/18 17:23 107 21 40 07/29/18 17:00 108 23 150/91 (110) 98 07/29/18 16:00 40 07/29/18 16:00 107 22 137/86 (103) 98 07/29/18 16:00 Mechanical Ventilator 07/29/18 16:00 107 07/29/18 15:03 107 21 40 07/29/18 15:00 107 20 168/94 (118) 98 07/29/18 14:00 103 20 161/83 (109) 99 07/29/18 13:00 100 20 161/75 (103) 99 07/29/18 12:49 93 18 40 07/29/18 12:00 Mechanical Ventilator 07/29/18 12:00 40 07/29/18 12:00 80 07/29/18 12:00 83 20 141/67 (91) 100 I&O Intake and Output 07/29/18 07/30/18 19:00 07:00 Intake Total 1830 ml 2050 ml Output Total 970 ml 720 ml Balance 860 ml 1330 ml IV Total 1830 ml 2050 ml Output Urine Total 970 ml 720 ml # Bowel Movements 1 Cardiovascular: RSR Respiratory: decreased breath sounds Abdomen: soft, decreased bowel sounds Extremities: no cyanosis Laboratory Tests Test 07/30/18 05:00 White Blood Count 9.5 K/UL (4.8-10.8) Red Blood Count 3.05 M/UL (4.70-6.10) L Hemoglobin 8.7 G/DL (14.2-18.0) L Hematocrit 25.5 % (42.0-52.0) L Mean Corpuscular Volume 84 FL (80-99) Mean Corpuscular Hemoglobin 28.5 PG (27.0-31.0) Mean Corpuscular Hemoglobin Concent 34.0 G/DL (32.0-36.0) Red Cell Distribution Width 19.5 % (11.6-14.8) H Platelet Count 88 K/UL (150-450) L Mean Platelet Volume 7.6 FL (6.5-10.1) Neutrophils (%) (Auto) % (45.0-75.0) Lymphocytes (%) (Auto) % (20.0-45.0) Monocytes (%) (Auto) % (1.0-10.0) Eosinophils (%) (Auto) % (0.0-3.0) Basophils (%) (Auto) % (0.0-2.0) Differential Total Cells Counted 100 Neutrophils % (Manual) 86 % (45-75) H Lymphocytes % (Manual) 5 % (20-45) L Monocytes % (Manual) 9 % (1-10) Eosinophils % (Manual) 0 % (0-3) Basophils % (Manual) 0 % (0-2) Band Neutrophils 0 % (0-8) Platelet Estimate Decreased L Platelet Morphology Normal Hypochromasia 2+ Anisocytosis 2+ Spherocytes 1+ Prothrombin Time 15.7 SEC (9.30-11.50) H Prothromb Time International Ratio 1.5 (0.9-1.1) H Activated Partial Thromboplast Time 29 SEC (23-33) Sodium Level 151 MMOL/L (136-145) H Potassium Level 3.9 MMOL/L (3.5-5.1) Chloride Level 120 MMOL/L (98-107) H Carbon Dioxide Level 21 MMOL/L (21-32) Anion Gap 10 mmol/L (5-15) Blood Urea Nitrogen 26 mg/dL (7-18) H Creatinine 1.0 MG/DL (0.55-1.30) Estimat Glomerular Filtration Rate > 60 mL/min (>60) Glucose Level 131 MG/DL (74-106) H Calcium Level 7.4 MG/DL (8.5-10.1) L Phosphorus Level 1.7 MG/DL (2.5-4.9) L Magnesium Level 1.6 MG/DL (1.8-2.4) L Total Bilirubin 6.9 MG/DL (0.2-1.0) H Direct Bilirubin 4.4 MG/DL (0.0-0.3) H Aspartate Amino Transf (AST/SGOT) 93 U/L (15-37) H Alanine Aminotransferase (ALT/SGPT) 142 U/L (12-78) H Alkaline Phosphatase 98 U/L (46-116) Ammonia 115 umol/L (11-32) H Total Protein 5.1 G/DL (6.4-8.2) L Albumin 2.1 G/DL (3.4-5.0) L Globulin 3.0 g/dL Albumin/Globulin Ratio 0.7 (1.0-2.7) L Plan Problems: (1) Gastrointestinal hemorrhage Assessment & Plan: GI Bleed acute being transfused EGD aborted intubated CXR with 1. Difficult to tell if the endotracheal tube is in the trachea or in the esophagus. Suspect possibly in the esophagus, consider repositioning. Patient is rotated. There is gassy stomach and upper abdominal bowel. 2. Hypoventilatory lungs. Bibasilar lung atelectasis. Urgent bronchoscopy done in ICU. ET tube in place anatomy with tracheomalacia short trachea tube in good positioning edema of airways mucus noted and cleaned s/p multiple transfusions a bit more stable today cont ppi and octre gtt unfortunately not surgical candidate repeat EGD if possible if possible thank you (2) Cirrhosis (3) Severe anemia (4) Hemorrhagic shock (5) Esophageal varices Alvaro Melton July 30, 2018 11:40
[2018-07-30] MEDS ORDERED: Artificial Tears 1.4% Op Soln BOTH EYES PRN (12:45)
[2018-07-30] MEDS ORDERED: Glycopyrrolate 0.2mg/ml 1ml Vial IV PRN (12:45)
[2018-07-30] MEDS ORDERED: Sodium Phosphate 30 MM in NS 275 ML IV ONE (12:45)
[2018-07-30] MEDS ORDERED: Haloperidol 5mg/ml Inj IM PRN (12:45)
[2018-07-30] MEDS ORDERED: Rate Change Narcotic Drip MISC PRN ×2 (12:45→13:15)
--- NOTE | 2018-07-30 12:50 | General Progress Note ---
Progress Note Progress Note I talk with pts son Malcolm who stated that he wants comfort care and terminal extubation for his father. He will be extubated and put on morphine prn. He is aware that his father might pass away immediately or it might take a few days for him to pass. The ET tube will be removed and pt will be DNR/ DNI and comfort care. Chaim Brothers MD July 30, 2018 12:50
[2018-07-30] MEDS ORDERED: Morphine Sulfate 10mg/ml Inj IVP SCH (12:58)
[2018-07-30] MEDS ORDERED: Lactulose 20gm/30ml UDC RECTAL SCH (13:00)
[2018-07-30] MEDS ORDERED: PCA Morphine 1mg/ml 30 ML IV PRN (13:00)
[2018-07-30] MEDS ORDERED: Morphine Sulfate 2mg/ml Inj(IV/IM USE ONLY) IVP ONE (13:00)
--- NOTE | 2018-07-30 13:20 | NUR ---
Successful Terminal Extubation at 1320. Patient on room air fio2 21%. Suctioned nasotracheally after terminal extubation. DERECK raymundo.
--- NOTE | 2018-07-30 13:20 | NUR ---
NURSE NOTES: Pt was extubated per MD order. Resuscitation code has been changed to DNR/DNI per family request and MD order. Comfort measures in place per MD order/family request. Remains obtunded, however O2Sat at 95% on room air and vital signs stable. Family at bedside. Head of bed elevated to high fowlers. Order also in place to transfer pt to med surg. Will follow as ordered. Addendum: 07/30/18 at 1517 by FÉLIX GLOVER RN Morphine 5mg IVP was administered prior to extubation per order. Addendum: 07/30/18 at 1530 by FÉLIX GLOVER RN IV Sandostatin, Protonix and D5W drips and Mag/Phosphate infusions have been discontinued as ordered.
--- NOTE | 2018-07-30 14:16 | Consultation ---
History of Present Illness General Date patient seen: July 30, 2018 Chief Complaint: Gastrointestinal Bleed Referring physician: JAYA SANTA Reason for Consultation: GI bleed Present Illness HPI Fawad Villa is a 68-year-old gentleman with past medical history significant for alcohol abuse with liver cirrhosis, who presented to the hospital with altered mental status and increased gastrointestinal bleed. The patient noted to have a large amount of bloody emesis, been taking diuretics and potassium for cirrhosis, noted to have increased abdominal distention. Shortly after initial evaluation in the emergency, the patient was admitted to ICU with acute GI bleed most likely upper GI bleed. At the time of my exam with patient, his respirations are labored and exam is very poor. Allergies: Coded Allergies: No Known Allergies (Unverified , 07/25/18) Medication History Scheduled Furosemide* (Lasix*), 40 MG ORAL DAILY, (Reported) Potassium Chloride* (K-Dur*), 10 MEQ ORAL DAILY, (Reported) Spironolactone* (Spironolactone*), 50 MG ORAL DAILY, (Reported) Patient History Limited by: medical condition History Provided By: Family Member, Medical Record Healthcare decision maker N Resuscitation status Full Code Advanced Directive on File Review of Systems All Other Systems: negative except mentioned in HPI Physical Exam General Appearance: morbidly obese Lines, tubes and drains: peripheral HEENT: normocephalic, other - Scleral icterus, pupils dilated and sluggishly reactive, purulent exudate bilaterally Neck: normal inspection Respiratory/Chest: other - Loud labored respirations Extremities: other - No response to noxious stimuli on exam Neurologic: other - Comatose, loud labored respirations, no motor responses in extremities- pupils sluggishy reactive Last 24 Hour Vital Signs Date Time Temp Pulse Resp B/P (MAP) Pulse Ox O2 Delivery O2 Flow Rate FiO2 07/30/18 13:42 100.1 07/30/18 13:20 Room Air 21 07/30/18 12:56 105 32 40 07/30/18 12:00 Mechanical Ventilator 07/30/18 12:00 40 07/30/18 12:00 100.1 105 34 141/64 (89) 96 07/30/18 11:26 106 07/30/18 11:00 107 35 152/74 (100) 96 07/30/18 10:44 105 33 40 07/30/18 10:00 107 35 149/64 (92) 95 07/30/18 09:00 104 35 148/72 (97) 96 07/30/18 08:47 96 07/30/18 08:46 104 36 40 07/30/18 08:36 104 37 40 07/30/18 08:00 Mechanical Ventilator 07/30/18 08:00 103 07/30/18 08:00 40 07/30/18 08:00 98.9 103 32 146/70 (95) 95 07/30/18 07:00 102 28 135/66 (89) 97 07/30/18 06:56 103 33 40 07/30/18 06:00 102 30 149/63 (91) 97 07/30/18 05:20 100 29 40 40 07/30/18 05:00 101 29 150/63 (92) 97 07/30/18 04:00 101 07/30/18 04:00 Mechanical Ventilator 07/30/18 04:00 98.9 101 30 151/72 (98) 97 07/30/18 04:00 40 07/30/18 03:28 103 28 40 40 07/30/18 03:00 103 30 144/77 (99) 97 07/30/18 02:00 104 23 148/79 (102) 97 07/30/18 01:28 105 29 40 40 07/30/18 01:00 103 28 157/73 (101) 98 07/30/18 00:00 107 07/30/18 00:00 98.7 107 30 130/77 (94) 97 07/30/18 00:00 Mechanical Ventilator 07/30/18 00:00 40 07/29/18 23:08 110 31 40 40 07/29/18 23:00 110 31 150/87 (108) 97 07/29/18 22:00 108 28 132/81 (98) 97 07/29/18 21:11 108 28 40 40 07/29/18 21:00 109 27 152/83 (106) 97 07/29/18 20:00 107 07/29/18 20:00 Mechanical Ventilator 07/29/18 20:00 107 23 150/81 (104) 98 07/29/18 20:00 40 07/29/18 19:00 108 27 151/81 (104) 98 07/29/18 18:51 106 26 40 40 07/29/18 18:00 108 26 159/98 (118) 98 07/29/18 17:23 107 21 40 07/29/18 17:00 108 23 150/91 (110) 98 07/29/18 16:00 40 07/29/18 16:00 107 22 137/86 (103) 98 07/29/18 16:00 Mechanical Ventilator 07/29/18 16:00 107 07/29/18 15:03 107 21 40 07/29/18 15:00 107 20 168/94 (118) 98 Intake and Output 07/29/18 07/30/18 19:00 07:00 Intake Total 1830 ml 2050 ml Output Total 970 ml 720 ml Balance 860 ml 1330 ml IV Total 1830 ml 2050 ml Output Urine Total 970 ml 720 ml # Bowel Movements 1 Laboratory Tests Test 07/30/18 05:00 White Blood Count 9.5 K/UL (4.8-10.8) Red Blood Count 3.05 M/UL (4.70-6.10) L Hemoglobin 8.7 G/DL (14.2-18.0) L Hematocrit 25.5 % (42.0-52.0) L Mean Corpuscular Volume 84 FL (80-99) Mean Corpuscular Hemoglobin 28.5 PG (27.0-31.0) Mean Corpuscular Hemoglobin Concent 34.0 G/DL (32.0-36.0) Red Cell Distribution Width 19.5 % (11.6-14.8) H Platelet Count 88 K/UL (150-450) L Mean Platelet Volume 7.6 FL (6.5-10.1) Neutrophils (%) (Auto) % (45.0-75.0) Lymphocytes (%) (Auto) % (20.0-45.0) Monocytes (%) (Auto) % (1.0-10.0) Eosinophils (%) (Auto) % (0.0-3.0) Basophils (%) (Auto) % (0.0-2.0) Differential Total Cells Counted 100 Neutrophils % (Manual) 86 % (45-75) H Lymphocytes % (Manual) 5 % (20-45) L Monocytes % (Manual) 9 % (1-10) Eosinophils % (Manual) 0 % (0-3) Basophils % (Manual) 0 % (0-2) Band Neutrophils 0 % (0-8) Platelet Estimate Decreased L Platelet Morphology Normal Hypochromasia 2+ Anisocytosis 2+ Spherocytes 1+ Prothrombin Time 15.7 SEC (9.30-11.50) H Prothromb Time International Ratio 1.5 (0.9-1.1) H Activated Partial Thromboplast Time 29 SEC (23-33) Sodium Level 151 MMOL/L (136-145) H Potassium Level 3.9 MMOL/L (3.5-5.1) Chloride Level 120 MMOL/L (98-107) H Carbon Dioxide Level 21 MMOL/L (21-32) Anion Gap 10 mmol/L (5-15) Blood Urea Nitrogen 26 mg/dL (7-18) H Creatinine 1.0 MG/DL (0.55-1.30) Estimat Glomerular Filtration Rate > 60 mL/min (>60) Glucose Level 131 MG/DL (74-106) H Calcium Level 7.4 MG/DL (8.5-10.1) L Phosphorus Level 1.7 MG/DL (2.5-4.9) L Magnesium Level 1.6 MG/DL (1.8-2.4) L Total Bilirubin 6.9 MG/DL (0.2-1.0) H Direct Bilirubin 4.4 MG/DL (0.0-0.3) H Aspartate Amino Transf (AST/SGOT) 93 U/L (15-37) H Alanine Aminotransferase (ALT/SGPT) 142 U/L (12-78) H Alkaline Phosphatase 98 U/L (46-116) Ammonia 115 umol/L (11-32) H Total Protein 5.1 G/DL (6.4-8.2) L Albumin 2.1 G/DL (3.4-5.0) L Globulin 3.0 g/dL Albumin/Globulin Ratio 0.7 (1.0-2.7) L Height (Feet): 5 Height (Inches): 8.00 Weight (Pounds): 188 Medications Current Medications Medications (Trade) Dose Ordered Sig/Florentin Route PRN Reason Start Time Stop Time Status Last Admin Dose Admin Artificial Tears (Akwa-Tears) 1 drop QIDPRN PRN BOTH EYES Dry Eyes 07/30/18 12:45 08/29/18 12:44 Glycopyrrolate (Robinul) 0.1 mg Q6H PRN IV excessive secretions 07/30/18 12:45 08/29/18 12:44 Haloperidol Lactate (Haldol) 1 mg Q30M PRN IM Agitation 07/30/18 12:45 08/29/18 12:44 Miscellaneous Medication (Narcotic Drip Rate Change) 1 ea DAILY PRN MISC To Patient Comfort 07/30/18 12:45 08/02/18 12:44 Miscellaneous Medication (Narcotic Shift Volume) 1 ea Q8HR@07,15,23 MISC 07/30/18 15:00 08/29/18 14:59 Morphine Sulfate 30 ml @ 5 mls/hr SHELL[employer] WE[employer]HER Protocol PRN IV For Pain 07/30/18 13:00 08/01/18 12:59 Sodium Phosphate 30 mm/Sodium Chloride 285 ml @ 47.5 mls/hr ONCE ONCE IV 07/30/18 12:45 07/30/18 18:44 07/30/18 12:17 Assessment/Plan Problem List: (1) Hemorrhagic shock ICD Codes: R57.8 - Other shock SNOMED: 554315 (2) Esophageal varices ICD Codes: I85.00 - Esophageal varices without bleeding SNOMED: 59943374 (3) Acute respiratory failure ICD Codes: J96.00 - Acute respiratory failure, unspecified whether with hypoxia or hypercapnia SNOMED: 24267681 (4) Acute encephalopathy ICD Codes: G93.40 - Encephalopathy, unspecified SNOMED: 71608866, 732758605 Status: deteriorating Assessment/Plan: Poor neurological exam with no extremity responses and sluggish dilated pupils bilaterally Likely will need to be intubated/ ventilated - Encephalopathy secondary to metabolic causes- severe organ failure at this time. May continue neurological observations but primary medical management of organ failure is goal of recs at this time Maintain normothermia maintain normoglycemia Na 135-145 No imaging or medicines at this time from a neurological perspective given graveness of primary non neurological illness. Oneyda Escudero N.P. July 30, 2018 14:16
[2018-07-30] MEDS: Narcotic Shift Volume MISC SCH ×2 (15:00→23:00)
--- NOTE | 2018-07-30 15:00 | NUR ---
NURSE NOTES: Vital signs remain stable after extubation. Pt remains on room air with comfort measures as ordered, with O2sat at 95%. Family is at bedside. Oral care done and pt suctioned. Head of bed elevated to high rosas's.
--- NOTE | 2018-07-30 16:03 | NUR ---
Social Service Note JOSE ANTONIO spoke with patient's son Malcolm [phone] regarding plan of care and hospice care. Son states family is unable to care for patient at home in this condition and doesn't have 24 hour support. Son is in agreement with hospice. SNF will not accept patient without [facility] long term care phlebotomist care benefits. JOSE ANTONIO discussed with Dr. Brothers. Will continue to monitor.
--- NOTE | 2018-07-30 17:00 | NUR ---
NURSE NOTES: Pt remains obtunded, however with stable vitals signs. On room air with O2sat at 94-95%. Pt was suctioned and oral care provided. Pt was cleaned, repositioned, with pillows under lower extremities and bilateral arms for comfort. HOB elevated. Still waiting for room assignment to transfer pt to [facility] as ordered. Family aware.
--- NOTE | 2018-07-30 18:40 | Internal Med Progress Note ---
Subjective Date of Service: July 30, 2018 Physician Name John Young Attending Physician Dontae Macias MD Current Medications Medications (Trade) Dose Ordered Sig/Florentin Route PRN Reason Start Time Stop Time Status Last Admin Dose Admin Artificial Tears (Akwa-Tears) 1 drop QIDPRN PRN BOTH EYES Dry Eyes 07/30/18 12:45 08/29/18 12:44 Glycopyrrolate (Robinul) 0.1 mg Q6H PRN IV excessive secretions 07/30/18 12:45 08/29/18 12:44 Haloperidol Lactate (Haldol) 1 mg Q30M PRN IM Agitation 07/30/18 12:45 08/29/18 12:44 Miscellaneous Medication (Narcotic Drip Rate Change) 1 ea DAILY PRN MISC To Patient Comfort 07/30/18 12:45 08/02/18 12:44 Miscellaneous Medication (Narcotic Shift Volume) 1 ea Q8HR@07,15,23 MISC 07/30/18 15:00 08/29/18 14:59 Morphine Sulfate 30 ml @ 5 mls/hr DIET TECHNICIAN REGISTERED Protocol PRN IV For Pain 07/30/18 13:00 08/01/18 12:59 Sodium Phosphate 30 mm/Sodium Chloride 285 ml @ 47.5 mls/hr ONCE ONCE IV 07/30/18 12:45 07/30/18 18:44 07/30/18 12:17 Allergies: Coded Allergies: No Known Allergies (Unverified , 07/25/18) ROS Limited/Unobtainable: Yes Subjective 68 YO M admitted with upper GI hemorrhage. Intubated and sedated. S/P endoscopy 07/27/18. Cover for Int Med-Dr Macias. ICU. Extubated earlier today 07/30/18 Objective Last Vital Signs Date Time Temp Pulse Resp B/P (MAP) Pulse Ox O2 Delivery O2 Flow Rate FiO2 07/30/18 17:00 109 26 153/83 (106) 93 07/30/18 16:00 100.8 07/30/18 16:00 Room Air Room Air 07/30/18 13:20 21 07/27/18 08:00 10.0 Laboratory Tests Test 07/30/18 05:00 White Blood Count 9.5 K/UL (4.8-10.8) Red Blood Count 3.05 M/UL (4.70-6.10) L Hemoglobin 8.7 G/DL (14.2-18.0) L Hematocrit 25.5 % (42.0-52.0) L Mean Corpuscular Volume 84 FL (80-99) Mean Corpuscular Hemoglobin 28.5 PG (27.0-31.0) Mean Corpuscular Hemoglobin Concent 34.0 G/DL (32.0-36.0) Red Cell Distribution Width 19.5 % (11.6-14.8) H Platelet Count 88 K/UL (150-450) L Mean Platelet Volume 7.6 FL (6.5-10.1) Neutrophils (%) (Auto) % (45.0-75.0) Lymphocytes (%) (Auto) % (20.0-45.0) Monocytes (%) (Auto) % (1.0-10.0) Eosinophils (%) (Auto) % (0.0-3.0) Basophils (%) (Auto) % (0.0-2.0) Differential Total Cells Counted 100 Neutrophils % (Manual) 86 % (45-75) H Lymphocytes % (Manual) 5 % (20-45) L Monocytes % (Manual) 9 % (1-10) Eosinophils % (Manual) 0 % (0-3) Basophils % (Manual) 0 % (0-2) Band Neutrophils 0 % (0-8) Platelet Estimate Decreased L Platelet Morphology Normal Hypochromasia 2+ Anisocytosis 2+ Spherocytes 1+ Prothrombin Time 15.7 SEC (9.30-11.50) H Prothromb Time International Ratio 1.5 (0.9-1.1) H Activated Partial Thromboplast Time 29 SEC (23-33) Sodium Level 151 MMOL/L (136-145) H Potassium Level 3.9 MMOL/L (3.5-5.1) Chloride Level 120 MMOL/L (98-107) H Carbon Dioxide Level 21 MMOL/L (21-32) Anion Gap 10 mmol/L (5-15) Blood Urea Nitrogen 26 mg/dL (7-18) H Creatinine 1.0 MG/DL (0.55-1.30) Estimat Glomerular Filtration Rate > 60 mL/min (>60) Glucose Level 131 MG/DL (74-106) H Calcium Level 7.4 MG/DL (8.5-10.1) L Phosphorus Level 1.7 MG/DL (2.5-4.9) L Magnesium Level 1.6 MG/DL (1.8-2.4) L Total Bilirubin 6.9 MG/DL (0.2-1.0) H Direct Bilirubin 4.4 MG/DL (0.0-0.3) H Aspartate Amino Transf (AST/SGOT) 93 U/L (15-37) H Alanine Aminotransferase (ALT/SGPT) 142 U/L (12-78) H Alkaline Phosphatase 98 U/L (46-116) Ammonia 115 umol/L (11-32) H Total Protein 5.1 G/DL (6.4-8.2) L Albumin 2.1 G/DL (3.4-5.0) L Globulin 3.0 g/dL Albumin/Globulin Ratio 0.7 (1.0-2.7) L Intake and Output 07/29/18 07/30/18 19:00 07:00 Intake Total 1830 ml 2050 ml Output Total 970 ml 720 ml Balance 860 ml 1330 ml IV Total 1830 ml 2050 ml Output Urine Total 970 ml 720 ml # Bowel Movements 1 Assessment/Plan Assessment/Plan ASSESSMENT: 1. Severe anemia, most likely secondary to acute blood loss-hgb stable for 24 hrs. S/P transfusion 8 units PRBC and 3 units FFP 2. Acute upper GI bleed. 3. Alcoholism. 4. Liver cirrhosis. 5. Morbid obesity. Treatment: 1. Anemia Acute blood loss from GI bleed. S/P transfusion 8 units PRBC and 2 units FFP 2. Upper Gastrointestinal hemorrhage. See GI note. 3. alcoholic liver cirrhosis-see GI note. 4. alcohol dependence 5. Morbid obesity 6. S/P endoscopy=esophageal varices and esoph stricture 7. Comfort care-see pulmonary note. John Young MD July 30, 2018 18:40
--- NOTE | 2018-07-30 19:19 | NUR ---
HAND-OFF: Report given to Jhonny HARDEN. Endorsed plan of care including transfer order for med surg; awaiting for bed availability. Pt resting with head of bed elevated, remains obtunded, however with stable vital signs; on room air as ordered with O2sat at 94-95%.
--- NOTE | 2018-07-30 19:30 | NUR ---
NURSE NOTES: Recvd.quiet in bed obtunded,S/P extubated.Resp.unlabored on RA Sat.96%.See V/S.Scope SR.See Neuro assessment.Status DNR.Comfort measures only.All meds D/C.NPO.F./Cath intact patent diuresis suff.family at BS.Pos. chg made clean,dry and comfortable.Awaits bed availavility poss.transfer to MED Surg.
--- NOTE | 2018-07-30 22:00 | NUR ---
NURSE NOTES: HS care provided.Pos.chg.Suctioned.P.Ox-96% on RA.Neuro status same.
--- NOTE | 2018-07-30 23:16 | NUR ---
NURSE NOTES: Transferred to [address] [place] [address] via bed accpd.by staff.Hands off to DERECK FORDE using SBAR.
--- NOTE | 2018-07-30 23:20 | NUR ---
NURSE NOTES: Received report from DERECK Ruby. Patient DNR/DNI. Obtunded state. On room air. no signs of distress. PICC line intact, patent, and saline locked. Family at the bedside. Modi patent, intact, and draining urine. Will continue with plan of care.
[2018-07-31] VITALS: BP 148/83
[2018-07-31 04:00] VITALS: BP 146/76
[2018-07-31 06:17] LABS: AMMONIA 100 umol/L (11-32)
[2018-07-31 06:29] LABS: ALANINE AMINOTRANSFERASE 130 U/L (12-78); ALBUMIN 2.3 G/DL (3.4-5.0); ALBUMIN/GLOBULIN RATIO 0.7 (1.0-2.7); ALKALINE PHOSPHATASE 130 U/L (46-116); ANION GAP 13 mmol/L (5-15); ASPARTATE AMINO TRANSFERASE 78 U/L (15-37); BILIRUBIN,TOTAL 9.3 MG/DL (0.2-1.0); BLOOD UREA NITROGEN 27 mg/dL (7-18); CALCIUM 7.8 MG/DL (8.5-10.1); CARBON DIOXIDE 19 MMOL/L (21-32); CHLORIDE 124 MMOL/L (98-107); CREATININE 1.1 MG/DL (0.55-1.30); POTASSIUM 3.6 MMOL/L (3.5-5.1); SODIUM 156 MMOL/L (136-145)
[2018-07-31 06:30] LABS: BILIRUBIN,DIRECT 7.1 MG/DL (0.0-0.3)
[2018-07-31 06:43] LABS: PHOSPHORUS 3.2 MG/DL (2.5-4.9)
[2018-07-31 06:59] LABS: HEMATOCRIT 28.9 % (42.0-52.0); HEMOGLOBIN 9.7 G/DL (14.2-18.0); MEAN CORPUSCULAR VOLUME 86 FL (80-99); PLATELET COUNT 81 K/UL (150-450); RED BLOOD COUNT 3.36 M/UL (4.70-6.10); RED CELL DISTRIBUTION WIDTH 22.3 % (11.6-14.8); WHITE BLOOD COUNT 12.5 K/UL (4.8-10.8)
[2018-07-31] MEDS: Narcotic Shift Volume MISC SCH (07:00)
--- NOTE | 2018-07-31 07:43 | NUR ---
HAND-OFF: Report given to DERECK Mckeon.
--- NOTE | 2018-07-31 07:50 | NUR ---
NURSE NOTES: Patient received sleeping in bed, family by the bedside. Patient is breathing on room air, DNR/DNI per family's wishes. PICC line observed on left upper arm, clean dry and intact. Modi catheter patent and intact. Padded rails due to seizure precautions. HOB elevated. Bed locked in lowest position, call light placed within reach. Will continue to monitor.
[2018-07-31 08:00] VITALS: BP 139/85
--- NOTE | 2018-07-31 09:15 | NUR ---
RADIOLOGY DEPT., CHEST X-RAY DONE.-P.DYE
--- NOTE | 2018-07-31 10:00 | Diagnostic Imaging Report ---
APPROVED REPORT CPT Code: 32662 Present Symptoms Lower Extremity Edema: BILATERAL: Imaging reveals a patent deep venous system bilaterally. There is no evidence of thrombus within the common femoral, superficial femoral, popliteal or tibial segments. The greater saphenous veins are within normal limits. Doppler indicates normal spontaneous flow within these segments.
[2018-07-31] MEDS ORDERED: NS 275ml ONE (10:39)
[2018-07-31] MEDS ORDERED: NS 500ML ONE (10:59)
[2018-07-31] MEDS ORDERED: NS Irrig 1000ml ONE (10:59)
--- NOTE | 2018-07-31 11:02 | NUR ---
PRONOUNCEMENT: No Code. Called to pronounce patient. Absence of spontaneous respirations, no cardiac or breath sounds on auscultation. Pupils fixed and dilated. No carotid pulse or chest movement. Patient at 1102. DR Macias notified per rn . Family at bedside Jaime Villa .
--- NOTE | 2018-07-31 11:21 | NUR ---
NURSE NOTES: Patient found without pulse or respiration. Patient is DNR, family by the bedside. Nurse Eugene pronounced . [facility] notified, spoke to care support representative Darvin, reference#:[id number]. Charge nurse Reid notified. Primary MD Macias apprised.
--- NOTE | 2018-07-31 12:24 | Diagnostic Imaging Report ---
Indication: Dyspnea Technique: XRAY Chest 1v Comparison: 07/27/2018 Findings: Heart size and mediastinal contours are stable. Endotracheal tube is been removed. Left arm PICC line is in place with the catheter tip projecting in the expected region of the left innominate vein. Bibasilar streaky opacities are noted. No pleural effusion. No pneumothorax. Osseous structures stable. Impression: Streaky bibasilar airspace opacities which may be related to atelectasis. Correlate clinically to exclude pneumonia. Interval removal of endotracheal tube. Left arm PICC line placed with tip in the region of the left innominate vein
--- NOTE | 2018-07-31 13:57 | NUR ---
NURSE NOTES: Patient's body cleaned and wrapped with labels in appropriate places. Son Malcolm confirms the patient's belongings have been taken home with the family members. RN explained to Malcolm that the patient's body will be sent to the morgue in the interim until mortuary arrangements have been made by the family. Malcolm signed released papers with nursing bar supervisor and acknowledged understanding of the process.
--- NOTE | 2018-08-01 14:34 | Discharge Summary ---
Discharge Summary Discharge Summary _ DATE OF ADMISSION: 07/25/2018 DATE OF DISCHARGE: 07/31/2018 BRIEF SUMMARY: Patient is an unfortunate 68-year-old gentleman with medical history significant for alcohol abuse with liver cirrhosis, who presented to the hospital with altered mental status and increased GI bleed. He was noted to have a large amount of bloody emesis. He was noted to have increased abdominal distention. He was taking diuretics and potassium for cirrhosis. Shortly after initial evaluation in the emergency room, patient was admitted to ICU for evaluation of acute upper GI bleed. On evaluation at the ED, while he was noted to have a hemoglobin of 1.8, hematocrit 7.4. He was a started on octreotide and Protonix drip. He was given blood transfusion. GI was consulted. He was noted to have ascites. He underwent paracenteses yielding 100 mL of fluid. He was given banana bag. He was given IV hydration. On 07/26/2018, he underwent upper endoscopy. Patient was intubated for this procedure. There was a severe stricture in the upper esophageal sphincter opening. Unable to pass the regular scope. A smaller scope was used, however was not able to pass through. Decision was was made, procedure needs to be done under fluoroscopy to dilate upper esophageal sphincter. Procedure was postponed for the following day. Surgeon was consulted. Chest x-ray showed ET tube misplacement. Upon review of chest x-ray difficult to tell if endotracheal tube was in the trachea or in the esophagus. Patient then underwent urgent bronchoscopy in ICU. ET tube was found to be in place. 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 There was edema of airway sputum. Mucus was noted and cleaned. 07/27/2018, patient underwent endoscopy with dilatation. After 10 mm dilation, upper scope was able to pass through. There was a lot of blood in the esophagus and in the stomach. There was varices seen at the GE junction and below the GE junction. Blood and blood products were seen in the stomach. Hemoglobin levels stabilized after 8 units packed RBC transfusion and 3 units FFP. Venous duplex was negative for acute DVT. Patient failed weaning from vent. Unable to place OGT/NGT possibly due to patient's anatomy. Per family's wishes, patient was placed on DNR and comfort care. He was terminally extubated and patient eventually . FINAL DIAGNOSES: Severe anemia, most likely secondary to acute blood loss status post multiple blood transfusion Acute upper GI bleed Alcoholism Liver cirrhosis Morbid obesity This post endoscopy revealing esophageal varices and esophageal stricture Comfort care/terminal extubation DISPOSITION: Patient . I have been assigned to complete a discharge summary on this account, I was not involved with the patient's management. Rox Curry NP August 01, 2018 14:34
== END 2018-07-31 11:00 | disposition expired | DRG 377 ==
LOC: EMR 10:59 → ICU 12:03 → EDBEDREQ 16:37 → 4E 07-30 20:53
PROC: 0DJ08ZZ Inspection of Upper Intestinal Tract, Via Natural or Artificial Opening Endoscopic (ICD-10-PCS; principal; 2018-07-26 11:00)
PROC: 0W9G3ZZ Drainage of Peritoneal Cavity, Percutaneous Approach (ICD-10-PCS; principal; 2018-07-26 11:00)
PROC: 0BH17EZ Insertion of Endotracheal Airway into Trachea, Via Natural or Artificial Opening (ICD-10-PCS; 2018-07-27)
PROC: 0D758ZZ Dilation of Esophagus, Via Natural or Artificial Opening Endoscopic (ICD-10-PCS; 2018-07-27)
PROC: 5A1945Z Respiratory Ventilation, 24-96 Consecutive Hours (ICD-10-PCS; 2018-07-27)
PROC: 0BJ08ZZ Inspection of Tracheobronchial Tree, Via Natural or Artificial Opening Endoscopic (ICD-10-PCS; 2018-07-27)
PROC: B548ZZA Ultrasonography of Superior Vena Cava, Guidance (ICD-10-PCS; 2018-07-29)
PROC: 02HV33Z Insertion of Infusion Device into Superior Vena Cava, Percutaneous Approach (ICD-10-PCS; 2018-07-29)
DX: K92.0 Hematemesis (principal); J96.00 Acute respiratory failure, unspecified whether with hypoxia or hypercapnia; G93.41 Metabolic encephalopathy; D62 Acute posthemorrhagic anemia; K70.31 Alcoholic cirrhosis of liver with ascites; I85.10 Secondary esophageal varices without bleeding; F10.20 Alcohol dependence, uncomplicated; E66.01 Morbid (severe) obesity due to excess calories; Z68.31 Body mass index [BMI] 31.0-31.9, adult; R57.8 Other shock; K22.2 Esophageal obstruction; Z66 Do not resuscitate; Z51.5 Encounter for palliative care; J39.8 Other specified diseases of upper respiratory tract
CPT/HCPCS: 36415; 36569; 36600; 71045; 76937; 76942; 80048; 80053; 81003; 82140; 82150; 82248; 82270; 82803; 82962; 83690; 83735; 84100; 84484; 85007; 85025; 85610; 85730; 86850; 86900; 86901; 86920; 86927; 87081; 87086; 93970; 94002; 94003; 94150; 94660; 94664; 96365; 96366; 96367; 96375; 99291; J1815; J2250; J2405